=== PATIENT | female | born 1980 | race Caucasian/White ===

== ENCOUNTER 2017-02-27 19:27 | Emergency (ER) | payer OTHER ==
[~2017-02-27] VITALS: Ht 154.9 cm; Wt 111.1 kg
[~2017-02-27 19:27] MED LIST: ALPR0.5T7 PO; ALPR1TAB2 PO; AMOX500C2 PO; AMX500CRX PO; AZIT-21 PO; AZIT250T PO; BENZ-13 PO; BENZ200C25 PO; BSP5T PO; BUTA-234 PO; CEPH500C PO; CITA-105 PO; CITA40TA19 PO; DIPH50CA33 PO; DOXY100C2 PO; DULO60CA58 PO; FRS325T PO; HYDR-3720 PO; HYDR-3812 PO; HYDR25CA92 PO; IBP600T1 PO; IBUP-2055 PO; MELA10CA PO; MELA1TAB11 PO; METH4TAB10 PO; METO-274 PO; Metoprolol Succinate PO; NIFE-12 PO; NPPH15OP OD; NS.65NA45; ONDA8TAB13 PO; ONDA8TAB9 PO; ONDAN4ODT PO; ONDN4T PO; OXYC-12 PO; OXYC1TAB87 PO; PHEN37.555 PO; POLY119P PO; PREN1TAB71 PO; PRM25T PO; PROM25SU10 RC; SERT100T8 PO; SRTR100T PO; TRAM50TA2 PO; ZLP10T PO
[2017-02-27] MEDS ORDERED: FLOVENT (19:58)
[2017-02-27] MEDS ORDERED: ACETAMINOPHEN 500 MG TAB (TYLENOL) PO ONE (20:00)
[2017-02-27] MEDS ORDERED: IBUPROFEN 800 MG (MOTRIN) TAB PO ONE (20:00)
[2017-02-27] MEDS ORDERED: methylPREDNISolone 125 MG (Solu-MEDROL) VIAL IM STA (20:15)
[2017-02-27] MEDS ORDERED: cefTRIAXone 1 GM (ROCEPHIN) VIAL IM ONE (20:15)
[2017-02-27] MEDS ORDERED: LIDOCAINE 1% INJ 20 ML (XYLOCAINE) VIAL INJ ONE (20:15)
[2017-02-27] MEDS ORDERED: guaiFENesin/DM (ROBITUSSIN DM) 10 ML UDC PO PRN (20:15)
[2017-02-27] MEDS ORDERED: BENZ-13 PO (20:20)
[2017-02-27] MEDS ORDERED: METH4TAB PO (20:20)
[2017-02-27] MEDS ORDERED: D-ME118S7 PO (20:20)
[2017-02-27] MEDS ORDERED: CEFD300C3 PO (20:20)
--- NOTE | 2017-02-27 20:20 | ED Cough/URI ---
General Chief Complaint: Cough/Cold/Flu Symptoms Stated Complaint: COUGH FEVER LIGHT HEADED SOA Nursing Triage Note: PT TO ED 10 W/ FAMILY FOR C/O COUGH, CONGESTION ET FEVER ONSET YESTERDAY, WORSE TODAY. Source: patient History of Present Illness Time seen by provider: 20:00 Initial Comments PT C/O NON-PRODUCTIVE COUGH, CHEST CONGESTION, WHEEZING AND SUBJECTIVE FEVER SINCE 1600 YESTERDAY 2 CHILDREN HAD STREP 1-2 WEEKS, AGO AND THEY ARE WELL. PT HAS NOT HAD A SORE THROAT PT USED ALBUTEROL INHALER ( NO SPACER ) X 1 TODAY WITH MINIMAL IMPROVEMENT-- STATES SHE TAKES IT OCCASIONALLY FOR "ALLERGIES"--PT STATES SHE HAS NEVER HAD ANY LUNG PROBLEMS OR BEEN DX WITH ASTHMA PCP: FT. ALEXANDER MAGANA Allergies and Home Medications Allergies Coded Allergies: codeine (Unverified Allergy, Mild, 05/29/11) vomitting Home Medications Alprazolam 1 Mg Tablet, 2 MG PO HS, (Reported) TAKES 2 (1 MG) TABLETS Benzonatate 100 Mg Capsule, 1-2 TAB PO TID, #30 Prescribed by: NAYELI BRIAN on 02/27/172019 Cefdinir 300 Mg Capsule, 300 MG PO BID, #20 Prescribed by: NAYELI BRIAN on 02/27/172019 D-Methorphan Hb/Prometh HCl 118 Ml Syrup, 1-2 TSP PO Q4H, #120 Prescribed by: NAYELI BRIAN on 02/27/172019 Duloxetine HCl 60 Mg Capsule.dr, 60 MG PO HS, (Reported) Methylprednisolone 4 Mg Tab.ds.pk, 4 MG PO UD, #1 Prescribed by: NAYELI BRIAN on 02/27/172019 Metoprolol Succinate 100 Mg Tab.er.24h, 100 MG PO HS, (Reported) [Flovent] , (Reported) Constitutional: see HPI, fever EENTM: nose congestion, see HPI Respiratory: see HPI, cough, dyspnea on exertion, short of breath, wheezing Cardiovascular: no symptoms reported Gastrointestinal: no symptoms reported Genitourinary: no symptoms reported : No Musculoskeletal: no symptoms reported Skin: no symptoms reported Psychiatric/Neurological: No Symptoms Reported Hematologic/Lymphatic: No Symptoms Reported Immunological/Allergic: no symptoms reported Past Cpyqbre-Urfrja-Wwrosd Hx Patient Social History Alcohol Use: Denies Use Recreational Drug Use: No Smoking Status: Never a Smoker Recent Foreign Travel: No Contact w/Someone Who Travel: No Recent Infectious Disease Expo: No Recent Hopitalizations: No Immunizations Up To Date Tetanus Booster (TDap): Less than 5yrs Date of Influenza Vaccine: Aug 05, 2015 Seasonal Allergies Seasonal Allergies: Yes Surgeries HX Surgeries: Yes (RIGHT 5TH FINGER-2 SCREWS;) Surgeries: Adenoidectomy, Section, Gallbladder, Orthopedic, Tonsillectomy, Tubal Ligation Respiratory Hx Respiratory Disorders: No (DENIES ) Cardiovascular Hx Cardiac Disorders: Yes Cardiac Disorders: Hypertension Neurological Hx Neurological Disorders: No Reproductive System Hx Reproductive Disorders: No Sexually Transmitted Disease: No HIV/AIDS: No Female Reproductive Disorders: Denies PVC MONITOR History: Tubal Ligation Genitourinary Hx Genitourinary Disorders: No Gastrointestinal Hx Gastrointestinal Disorders: No Musculoskeletal Hx Musculoskeletal Disorders: Yes Musculoskeletal Disorders: Scoliosis, Fractures Endocrine Hx Endocrine Disorders: No HEENT HX ENT Disorders: No Loss of Vision: Denies Hearing Impairment: Denies Cancer Hx Cancer: No Psychosocial Hx Psychiatric Problems: Yes (INSOMNIA) Behavioral Health Disorders: Sleep Difficulties, Anxiety, Depression Integumentary HX Skin/Integumentary Disorder: No Blood Transfusions Hx Blood Disorders: No Adverse Reaction to a Blood Tr: No Family Medical History Family Medial History: Diabetes mellitus 19 MOTHER Physical Exam Vital Signs Vital Sign - Last 12Hours Capillary Refill : Less Than 3 Seconds General Appearance: WD/WN, no apparent distress, obese HEENT: PERRL/EOMI, TMs normal, pharynx normal, No pharyngeal erythema, other ( NASAL MUCOSAL EDEMA AND CLEAR POST NASAL DRAINAGE. NO SINUS TENDERNESS) Neck: non-tender, full range of motion, supple, normal inspection, No lymphadenopathy (R), No lymphadenopathy (L) Respiratory: normal breath sounds, no respiratory distress, no accessory muscle use Cardiovascular: normal peripheral pulses, regular rate, rhythm, no edema, no JVD, no murmur Gastrointestinal: normal bowel sounds, non tender, soft Extremities: normal inspection, no pedal edema, normal capillary refill Neurologic/Psychiatric: parquetry layer II-XII nml as tested, no motor/sensory deficits, alert, normal mood/affect, oriented x 3 Skin: normal color, warm/dry Progress/Results/Core Measures Results/Orders My Orders Orders - NAYELI BRIAN DO Ibuprofen Tablet (Motrin Tablet) (02/27/17 20:00) Acetaminophen Tablet (Tylenol Tablet) (02/27/17 20:00) Ceftriaxone Injection (Rocephin Injectio (02/27/17 20:15) Methylprednisolone Sod Succ (Solu-Medrol (02/27/17 20:15) Lidocaine 1% Injection (Xylocaine 1% Inj (02/27/17 20:15) Benzonatate Capsule (Tessalon Perles) (02/27/17 21:00) Guaifenesin/Dm Syrup (Robitussin Dm Syru (02/27/17 20:15) Medications Given in ED Current Medications Medications Dose Ordered Sig/Debbie Route Start Time Stop Time Status Last Admin Dose Admin Acetaminophen 1,000 mg ONCE ONCE PO 02/27/17 20:00 02/27/17 20:01 DC 02/27/17 20:04 1,000 MG Ceftriaxone Sodium 1,000 mg ONCE ONCE IM 02/27/17 20:15 02/27/17 20:17 DC 02/27/17 20:33 1,000 MG Guaifenesin/ Dextromethorphan 5 ml Q4H PRN PO 02/27/17 20:15 02/27/17 22:15 DC 02/27/17 20:33 5 ML Ibuprofen 800 mg ONCE ONCE PO 02/27/17 20:00 02/27/17 20:01 DC 02/27/17 20:05 800 MG Lidocaine HCl 2.1 ml ONCE ONCE INJ 02/27/17 20:15 02/27/17 20:17 DC 02/27/17 20:33 2.1 ML Vital Signs/I&O Vital Sign - Last 12Hours 02/27/17 02/27/17 02/27/17 19:48 19:48 21:06 Temp 101.2 101.5 Pulse 101 99 Resp 20 20 B/P (MAP) 160/72 Pulse Ox 95 96 O2 Delivery Room Air Room Air Blood Pressure Mean: 101 Departure Impression Impression: Primary Impression: Bronchitis Disposition: 01 HOME, SELF-CARE Condition: Stable Departure-Patient Inst. Referrals: NO,LOCAL PHYSICIAN (PCP) Primary Care Physician ZULEIKA GRIFFITH MD Patient Instructions: Acute Bronchitis, Adult (DC) Add. Discharge Instructions: USE YOUR INHALER WITH SPACER AT ALL TIMES--2 PUFFS EVERY 4 HOURS NEEDED TYLENOL 1 GRAM / MOTRIN 800 MG 4 TIMES A DAY FOR PAIN OR FEVER OVER 101 LOTS OF CLEAR LIQUIDS FOLLOW UP WITH YOUR DR IN 3 DAYS IF NO BETTER RETURN TO ER IF WORSE All discharge instructions reviewed with patient and/or family. Voiced understanding. Scripts Benzonatate (Tessalon Perle) 100 Mg Capsule 1-2 TAB PO TID for Cough, #30 CAP Prov: NAYELI BRIAN DO 02/27/17 D-Methorphan Hb/Prometh HCl (Promethazine-Dm Syrup) 118 Ml Syrup 1-2 TSP PO Q4H for Cough, #120 ML Prov: NAYELI BRIAN DO 02/27/17 Methylprednisolone (Medrol) 4 Mg Tab.ds.pk 4 MG PO UD, #1 PKG Prov: NAYELI BRIAN DO 02/27/17 Cefdinir (Cefdinir) 300 Mg Capsule 300 MG PO BID for FOR INFECTION, #20 CAP Prov: NAYELI BRIAN DO 02/27/17 NAYELI BRIAN DO February 27, 2017 20:20
[2017-02-27] MEDS ORDERED: BENZONATATE 100 MG (TESSALON) CAPSULE PO SCH (21:00)
[2017-02-27 21:06] VITALS: BP 136/82
== END 2017-02-27 21:06 | disposition home or self-care (01) ==
LOC: EDUNIT# 19:27 → ER 19:30
DX: J40 Bronchitis, not specified as acute or chronic (principal); R50.9 Fever, unspecified; I10 Essential (primary) hypertension; Z79.899 Other long term (current) drug therapy
CPT/HCPCS: 96372; 99282

== ENCOUNTER 2017-03-19 07:18 | Emergency (ER) | payer OTHER ==
[~2017-03-19] VITALS: Ht 154.9 cm; Wt 111.1 kg
[~2017-03-19 07:18] MED LIST changes: +CEFD300C3 PO; +D-ME118S7 PO; +FLOVENT; +METH4TAB PO
[2017-03-19] MEDS ORDERED: ONDANSETRON 4 MG/2 ML (SDV) Z0FRAN IVP ONE ×2 (07:45→09:00)
[2017-03-19] MEDS ORDERED: NS IV 1000 ML 1,000 ML IV SCH ×2 (07:45→09:00)
[2017-03-19 07:53] LABS: BILIRUBIN,URINE NEGATIVE (NEGATIVE); KETONES,URINE NEGATIVE (NEGATIVE); LEUKOCYTE ESTERASE ,URINE NEGATIVE (NEGATIVE); NITRITE,URINE NEGATIVE (NEGATIVE); PH,URINE 8 (5-9); PROTEIN,URINE 1+ (NEGATIVE); UROBILINOGEN,URINE NORMAL (NORMAL)
[2017-03-19 07:54] LABS: BASOPHILS % (AUTO) 0 % (0-10); EOSINOPHILS # (AUTO) 0.1 10^3/uL (0.0-0.3); EOSINOPHILS % (AUTO) 1 % (0-10); LYMPHOCYTES # (AUTO) 1.1 X 10^3 (1.0-4.0); LYMPHOCYTES % (AUTO) 8 % (12-44); MEAN CORPUSCULAR HEMOGLOBIN 28 PG (25-34); MEAN CORPUSCULAR HGB CONC 33 G/DL (32-36); MEAN CORPUSCULAR VOLUME 86 FL (80-99); MEAN PLATELET VOLUME 9.4 FL (7.4-10.4); MONOCYTES # (AUTO) 0.8 X 10^3 (0.0-1.0); MONOCYTES % (AUTO) 6 % (0-12); NEUTROPHILS # (AUTO) 11.4 X 10^3 (1.8-7.8); NEUTROPHILS % (AUTO) 85 % (42-75); PLATELET COUNT 344 10^3/uL (130-400); RED BLOOD COUNT 4.95 10^6/uL (4.35-5.85); RED CELL DISTRIBUTION WIDTH 14.3 % (10.0-14.5); WHITE BLOOD COUNT 13.4 10^3/uL (4.3-11.0)
[2017-03-19 08:13] LABS: ALANINE AMINOTRANSFERASE 32 U/L (0-55); ALBUMIN 3.9 G/DL (3.2-4.5); ANION GAP 10 MMOL/L (5-14); ASPARTATE AMINO TRANSFERASE 19 U/L (5-34); BILIRUBIN,TOTAL 0.5 MG/DL (0.1-1.0); BLOOD UREA NITROGEN 11 MG/DL (7-18); BUN/CREATININE RATIO 15; CALCIUM 8.6 MG/DL (8.5-10.1); CARBON DIOXIDE 23 MMOL/L (21-32); CHLORIDE 109 MMOL/L (98-107); CREATININE SERUM 0.71 MG/DL (0.60-1.30); GFR ESTIMATED > 60; GLUCOSE 112 MG/DL (70-105); POTASSIUM 3.6 MMOL/L (3.6-5.0); SODIUM 142 MMOL/L (135-145); TOTAL PROTEIN 6.9 G/DL (6.4-8.2)
--- NOTE | 2017-03-19 08:50 | ED GI ---
General Chief Complaint: Abdominal/GI Problems Stated Complaint: FOOD POISINING Nursing Triage Note: AMB TO ROOM REPORT ONSET OF VOMITING THIS AM CONCERN THAT SHE MAY HAVE FOOD POISONING ATE GERARD LAST NIGHT AT [employer] WITH [employer] Sepsis Screen: No Definite Risk Source of Information: Patient Exam Limitations: No Limitations History of Present Illness Time Seen By Provider: 08:42 Initial Comments The patient is a 36-year-old white female who presents to the ER this morning with complaints of diarrhea and vomiting. She states that she ate at a [place] restaurant last night at about 2030 hours. She awakened during the night with abdominal cramping and vomiting and diarrhea. This is continued on broken since that time. Her stated food was not anything that would immediately take you to the thought of food poisoning. Timing/Duration: 12 Hours Severity/Quality: Moderate Location: Generalized Abdomen Radiation: No Radiation Activities at Onset: None Associated Symptoms: Nausea/Vomiting Allergies and Home Medications Allergies Coded Allergies: codeine (Unverified Allergy, Mild, 05/29/11) vomitting Home Medications Alprazolam 1 Mg Tablet, 2 MG PO HS, (Reported) TAKES 2 (1 MG) TABLETS Benzonatate 100 Mg Capsule, 1-2 TAB PO TID, #30 Prescribed by: NAYELI BRIAN on 02/27/172019 D-Methorphan Hb/Prometh HCl 118 Ml Syrup, 1-2 TSP PO Q4H, #120 Prescribed by: NAYELI BRIAN on 02/27/172019 Duloxetine HCl 60 Mg Capsule.dr, 60 MG PO HS, (Reported) Methylprednisolone 4 Mg Tab.ds.pk, 4 MG PO UD, #1 Prescribed by: NAYELI BRIAN on 02/27/172019 Metoprolol Succinate 100 Mg Tab.er.24h, 100 MG PO HS, (Reported) [Flovent] , (Reported) Review of Systems Constitutional: see HPI EENTM: No Symptoms Reported Respiratory: No Symptoms Reported Cardiovascular: No Symptoms Reported Gastrointestinal: See HPI Genitourinary: No Symptoms Reported Musculoskeletal: no symptoms reported Skin: no symptoms reported Psychiatric/Neurological: No Symptoms Reported Endocrine: No Symptoms Reported Hematologic/Lymphatic: No Symptoms Reported Past Hoappga-Eoqmfv-Wqtzyo Hx Patient Social History Alcohol Use: Denies Use Recreational Drug Use: No Smoking Status: Never a Smoker Recent Foreign Travel: No Contact w/Someone Who Travel: No Recent Infectious Disease Expo: No Recent Hopitalizations: No Immunizations Up To Date Tetanus Booster (TDap): Less than 5yrs Date of Influenza Vaccine: Aug 05, 2015 Seasonal Allergies Seasonal Allergies: Yes Surgeries HX Surgeries: Yes (RIGHT 5TH FINGER-2 SCREWS;) Surgeries: Adenoidectomy, Section, Gallbladder, Orthopedic, Tonsillectomy, Tubal Ligation Respiratory Hx Respiratory Disorders: No (DENIES ) Cardiovascular Hx Cardiac Disorders: Yes Cardiac Disorders: Hypertension Neurological Hx Neurological Disorders: No Reproductive System Hx Reproductive Disorders: No Sexually Transmitted Disease: No HIV/AIDS: No Female Reproductive Disorders: Denies HEALTH ANALYST History: Tubal Ligation Genitourinary Hx Genitourinary Disorders: No Gastrointestinal Hx Gastrointestinal Disorders: No Musculoskeletal Hx Musculoskeletal Disorders: Yes Musculoskeletal Disorders: Scoliosis, Fractures Endocrine Hx Endocrine Disorders: No HEENT HX ENT Disorders: No Loss of Vision: Denies Hearing Impairment: Denies Cancer Hx Cancer: No Psychosocial Hx Psychiatric Problems: Yes (INSOMNIA) Behavioral Health Disorders: Sleep Difficulties, Anxiety, Depression Integumentary HX Skin/Integumentary Disorder: No Blood Transfusions Hx Blood Disorders: No Adverse Reaction to a Blood Tr: No Family Medical History Family Medial History: Diabetes mellitus 19 MOTHER Physical Exam Vital Signs VS - Last 72 Hours, by Label 03/19/17 07:22 Temp 98.5 Pulse 100 Resp 18 B/P (MAP) 141/96 Capillary Refill : Less Than 3 Seconds General Appearance: mild distress, moderate distress HEENT: normal ENT inspection Neck: full range of motion Respiratory: chest non-tender, lungs clear, normal breath sounds, no respiratory distress, no accessory muscle use Cardiovascular: normal peripheral pulses, regular rate, rhythm, no edema, no gallop, no JVD, no murmur Gastrointestinal: abnormal bowel sounds Extremities: normal range of motion, non-tender, normal inspection, no pedal edema, no calf tenderness, normal capillary refill, pelvis stable Neurologic/Psychiatric: credit risk specialist II-XII nml as tested, no motor/sensory deficits, alert, normal mood/affect, oriented x 3 Skin: normal color, warm/dry Progress/Results/Core Measures Results/Orders Lab Results Laboratory Tests Test 03/19/17 07:40 Range/Units White Blood Count 13.4 H 4.3-11.0 10^3/uL Red Blood Count 4.95 4.35-5.85 10^6/uL Hemoglobin 14.0 11.5-16.0 G/DL Hematocrit 43 35-52 % Mean Corpuscular Volume 86 80-99 FL Mean Corpuscular Hemoglobin 28 25-34 PG Mean Corpuscular Hemoglobin Concent 33 32-36 G/DL Red Cell Distribution Width 14.3 10.0-14.5 % Platelet Count 344 130-400 10^3/uL Mean Platelet Volume 9.4 7.4-10.4 FL Neutrophils (%) (Auto) 85 H 42-75 % Lymphocytes (%) (Auto) 8 L 12-44 % Monocytes (%) (Auto) 6 0-12 % Eosinophils (%) (Auto) 1 0-10 % Basophils (%) (Auto) 0 0-10 % Neutrophils # (Auto) 11.4 H 1.8-7.8 X 10^3 Lymphocytes # (Auto) 1.1 1.0-4.0 X 10^3 Monocytes # (Auto) 0.8 0.0-1.0 X 10^3 Eosinophils # (Auto) 0.1 0.0-0.3 10^3/uL Basophils # (Auto) 0.0 0.0-0.1 10^3/uL Urine Color YELLOW Urine Clarity CLEAR Urine pH 8 5-9 Urine Specific [place] 1.010 L 1.016-1.022 Urine Protein 1+ H NEGATIVE Urine Glucose (UA) NEGATIVE NEGATIVE Urine Ketones NEGATIVE NEGATIVE Urine Nitrite NEGATIVE NEGATIVE Urine Bilirubin NEGATIVE NEGATIVE Urine Urobilinogen NORMAL NORMAL MG/DL Urine Leukocyte Esterase NEGATIVE NEGATIVE Urine RBC (Auto) NEGATIVE NEGATIVE Urine RBC NONE /HPF Urine WBC NONE /HPF Urine Squamous Epithelial Cells 10-25 H /HPF Urine Crystals NONE /LPF Urine Bacteria NEGATIVE /HPF Urine Casts NONE /LPF Urine Mucus NEGATIVE /LPF Urine Culture Indicated NO Sodium Level 142 135-145 MMOL/L Potassium Level 3.6 3.6-5.0 MMOL/L Chloride Level 109 H 98-107 MMOL/L Carbon Dioxide Level 23 21-32 MMOL/L Anion Gap 10 5-14 MMOL/L Blood Urea Nitrogen 11 7-18 MG/DL Creatinine 0.71 0.60-1.30 MG/DL Estimat Glomerular Filtration Rate > 60 BUN/Creatinine Ratio 15 Glucose Level 112 H 70-105 MG/DL Calcium Level 8.6 8.5-10.1 MG/DL Total Bilirubin 0.5 0.1-1.0 MG/DL Aspartate Amino Transf (AST/SGOT) 19 5-34 U/L Alanine Aminotransferase (ALT/SGPT) 32 0-55 U/L Alkaline Phosphatase 86 40-136 U/L Total Protein 6.9 6.4-8.2 G/DL Albumin 3.9 3.2-4.5 G/DL My Orders Orders - GENA CHAPPELL MD Cbc With Automated Diff (03/19/17 07:35) Comprehensive Metabolic Panel (03/19/17 07:35) Ua Culture If Indicated (03/19/17 07:35) Ns Iv 1000 Ml (Sodium Chloride 0.9%) (03/19/17 07:45) Ondansetron Injection (Zofran Injectio (03/19/17 07:45) Ns Iv 1000 Ml (Sodium Chloride 0.9%) (03/19/17 09:00) Ondansetron Injection (Zofran Injectio (03/19/17 09:00) Medications Given in ED Current Medications Medications Dose Ordered Sig/Debbie Route Start Time Stop Time Status Last Admin Dose Admin Ondansetron HCl 4 mg ONCE ONCE IVP 03/19/17 07:45 03/19/17 07:46 DC 03/19/17 07:48 4 MG Ondansetron HCl 4 mg ONCE ONCE IVP 03/19/17 09:00 03/19/17 09:01 DC 03/19/17 08:57 4 MG Vital Signs/I&O Vital Sign - Last 12Hours 03/19/17 07:22 Temp 98.5 Pulse 100 Resp 18 B/P (MAP) 141/96 Blood Pressure Mean: 111 Departure Impression Impression: Primary Impression: gastroenteritis Disposition: 01 HOME, SELF-CARE Condition: Improved Departure-Patient Inst. Decision time for Depature: 09:26 Referrals: NO,LOCAL PHYSICIAN (PCP) Primary Care Physician Patient Instructions: No Instuctions Given Add. Discharge Instructions: All discharge instructions reviewed with patient and/or family. Voiced understanding. For the next 24 hours do not attempt to eat. Acquire 7-Up and Gatorade. Alternate these and take them and 1-2 ounce increments but frequently. If you are doing well he should have to urinate at least every 4 hours. Use Zofran to control nausea. If after both to 24 hours there are no further symptoms you are then able to reintroduce food. Began with a few soda crackers and then advanced to chicken noodle or chicken rice soup in small amounts. At that time you may also use dry toast and mashed potatoes or steamed rice. The potatoes or rice may only have a bit of broth on them for flavoring. If this goes well you may advance to small portions of broiled chicken. At that point you should be ready to return to usual diet Scripts Ondansetron (Zofran Odt) 8 Mg Tab.rapdis 8 MG PO EVERY 4 HOURS, #10 TAB Prov: GENA CHAPPELL MD 03/19/17 GENA CHAPPELL MD Mar 19, 2017 08:50
[2017-03-19] MEDS ORDERED: ONDA8TAB9 PO (09:30)
[2017-03-19 10:13] VITALS: BP 152/78
== END 2017-03-19 10:16 | disposition home or self-care (01) ==
LOC: EDUNIT# 07:18 → ER 07:19
DX: K52.9 Noninfective gastroenteritis and colitis, unspecified (principal); I10 Essential (primary) hypertension
CPT/HCPCS: 36415; 80053; 81000; 85025; 96361; 96374; 96376

== ENCOUNTER 2017-10-19 15:36 | Emergency (ER) | payer OTHER ==
[~2017-10-19] VITALS: Ht 154.9 cm; Wt 116.1 kg
[~2017-10-19 15:36] MED LIST changes: +ACHD5005 PO; -HYDR-3812 PO; -METO-274 PO; +METO-395 PO
--- OUTSIDE RECORDS SUMMARY | 2017-10-19 15:43 | XMS REPORT ---
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 Active 3320511633566 Problem Elevated blood pressure reading without diagnosis of hypertension 796.2 Active 349829871 Problem Supervision of other normal V22.1 Active 900459303 Problem Seasonal allergic rhinitis due to other allergic trigger J30.89 Active 315698205 Problem Major depressive disorder, recurrent, moderate F33.1 Active 40650379 Problem Unspecified and placental problem affecting management of mother , unspecified as to episode of care 656.90 Active 36561494 Problem Nausea with vomiting 787.01 Active 93743333 Problem Generalized anxiety disorder F41.1 Active 83300138 Problem Previous delivery, unspecified as to episode of care or not applicable 654.20 Active 189221112 Problem Screening for malignant neoplasm of the cervix V76.2 Active 855522194 Problem Other procreative management, counseling and advice V26.49 Active 28014658 Problem Unspecified high-risk V23.9 Active 34886445 Problem Encounter for removal of intrauterine contraceptive device V25.12 Active 43963003 Problem Need for prophylactic vaccination and inoculation, Influenza V04.81 Active 725427624 ALLERGIES Substance Reaction Event Type Date Status Codeine Unknown Drug Allergy February, Active SOCIAL HISTORY Never Assessed PLAN OF CARE Activity Details Follow Up prn Reason: VITAL SIGNS Height 61 in 2017-02-14 Weight 263.6 lbs 2017-02-14 Temperature 98.4 degrees Fahrenheit 2017-02-14 Heart Rate 76 bpm 2017-02-14 Respiratory Rate 20 2017-02-14 BMI 49.80 kg/m2 2017-02-14 Blood pressure systolic 126 mmHg 2017-02-14 Blood pressure diastolic 76 mmHg 2017-02-14 MEDICATIONS Medication Instructions Dosage Frequency Start Date End Date Duration Status Xanax 1 MG Orally PRN HS 1 tablet Active Duloxetine HCl 60 MG Orally Once a day 1 capsule 24h Active Nasonex 50 MCG/ACT Nasally Once a day 2 sprays in each nostril 24h Sep, 30 day(s) Active Acyclovir 800 MG Orally Five times a day 1 tablet February, 7 days Active Metoprolol Tartrate 100 mg Orally Once a day 1 tablet 24h Active ProAir HFA 108 (90 Base) MCG/ACT Inhalation every 4-6 hours as needed 2 puffs as needed Active Phentermine HCl 37.5 MG Active RESULTS No Results PROCEDURES No Known procedures IMMUNIZATIONS No Known Immunizations MEDICAL (GENERAL) HISTORY Type Description Date Medical History hypertension Medical History anxiety Medical History Shingles Surgical History section Surgical History tubal ligation Surgical History cholecystectomy Surgical History tonsilectomy Surgical History pinkie surgery Hospitalization History chest pain 2013 Hospitalization History Surgery(s)/Childbirth(s) Hospitalization History dehydration 2009 Hospitalization History pneumonia Hospitalization History Shingles February 2017
--- OUTSIDE RECORDS SUMMARY | 2017-10-19 15:43 | XMS REPORT ---
Author Author NAYELI IBARRA Organization 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 Active 0000971860125 Problem Elevated blood pressure reading without diagnosis of hypertension 796.2 Active 518533604 Problem Supervision of other normal V22.1 Active 775771638 Problem Seasonal allergic rhinitis due to other allergic trigger J30.89 Active 382022517 Problem Major depressive disorder, recurrent, moderate F33.1 Active 89777349 Problem Unspecified and placental problem affecting management of mother , unspecified as to episode of care 656.90 Active 86391168 Problem Nausea with vomiting 787.01 Active 77222723 Problem Generalized anxiety disorder F41.1 Active 70798015 Problem Previous delivery, unspecified as to episode of care or not applicable 654.20 Active 180458766 Problem Screening for malignant neoplasm of the cervix V76.2 Active 815469665 Problem Other procreative management, counseling and advice V26.49 Active 57114781 Problem Unspecified high-risk V23.9 Active 70878620 Problem Encounter for removal of intrauterine contraceptive device V25.12 Active 36835098 Problem Need for prophylactic vaccination and inoculation, Influenza V04.81 Active 317705047 ALLERGIES Substance Reaction Event Type Date Status Codeine Unknown Drug Allergy February, Active SOCIAL HISTORY Never Assessed PLAN OF CARE Activity Details Follow Up prn Reason:DIANA VITAL SIGNS Height 61 in 2017-03-07 Heart Rate 86 bpm 2017-03-07 Blood pressure systolic 134 mmHg 2017-03-07 Blood pressure diastolic 84 mmHg 2017-03-07 MEDICATIONS Medication Instructions Dosage Frequency Start Date End Date Duration Status Xanax 1 MG Orally PRN HS 1 tablet Active Duloxetine HCl 60 MG Orally Once a day 1 capsule 24h Active Phentermine HCl 37.5 MG Active ProAir HFA 108 (90 Base) MCG/ACT Inhalation every 4-6 hours as needed 2 puffs as needed Active Acyclovir 800 MG Orally Five times a day 1 tablet February, 7 days Active Metoprolol Tartrate 100 mg Orally Once a day 1 tablet 24h Active Nasonex 50 MCG/ACT Nasally Once a day 2 sprays in each nostril 24h Sep, 30 day(s) Active RESULTS No Results PROCEDURES Procedure Date Ordered Result Body Site INTRAORL-PERIAPICAL 1 FILM [id number] March 07, 2017 INTRAORL-PERIAPICAL EA ADD FILM March 07, 2017 Full mouth debridement March 07, 2017 INTRAORL-PERIAPICAL EA ADD FILM March 07, 2017 INTRAORL-PERIAPICAL EA ADD FILM March 07, 2017 PANORAMIC FILM SEE ALSO CODE [id number] March 07, 2017 BITEWINGS - FOUR FILMS March 07, 2017 IMMUNIZATIONS No Known Immunizations MEDICAL (GENERAL) HISTORY Type Description Date Medical History hypertension Medical History anxiety Medical History Shingles Surgical History section Surgical History tubal ligation Surgical History cholecystectomy Surgical History tonsilectomy Surgical History pinkie surgery Hospitalization History chest pain 2013 Hospitalization History Surgery(s)/Childbirth(s) Hospitalization History dehydration 2009 Hospitalization History pneumonia Hospitalization History Shingles February 2017
--- OUTSIDE RECORDS SUMMARY | 2017-10-19 15:44 | XMS REPORT ---
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 Active 1185140532416 Problem Elevated blood pressure reading without diagnosis of hypertension 796.2 Active 272836793 Problem Supervision of other normal V22.1 Active 234258263 Problem Seasonal allergic rhinitis due to other allergic trigger J30.89 Active 005142034 Problem Major depressive disorder, recurrent, moderate F33.1 Active 02685633 Problem Unspecified and placental problem affecting management of mother , unspecified as to episode of care 656.90 Active 06014422 Problem Nausea with vomiting 787.01 Active 00309534 Problem Generalized anxiety disorder F41.1 Active 98973902 Problem Previous delivery, unspecified as to episode of care or not applicable 654.20 Active 173988014 Problem Screening for malignant neoplasm of the cervix V76.2 Active 098172549 Problem Other procreative management, counseling and advice V26.49 Active 88065788 Problem Unspecified high-risk V23.9 Active 89637698 Problem Encounter for removal of intrauterine contraceptive device V25.12 Active 12509768 Problem Need for prophylactic vaccination and inoculation, Influenza V04.81 Active 827172373 ALLERGIES Substance Reaction Event Type Date Status Codeine Unknown Drug Allergy Nov, Active SOCIAL HISTORY No smoking Hx information available PLAN OF CARE VITAL SIGNS Height 61 in 2016-11-23 Weight 258.0 lbs 2016-11-23 Temperature 98.0 degrees Fahrenheit 2016-11-23 Heart Rate 88 bpm 2016-11-23 Respiratory Rate 18 2016-11-23 BMI 48.74 kg/m2 2016-11-23 Blood pressure systolic 134 mmHg 2016-11-23 Blood pressure diastolic 88 mmHg 2016-11-23 MEDICATIONS Medication Instructions Dosage Frequency Start Date End Date Duration Status Nasonex 50 MCG/ACT Nasally Once a day 2 sprays in each nostril 24h Sep, 30 day(s) Active Xanax 1 MG Orally PRN HS 1 tablet Active Duloxetine HCl 60 MG Orally Once a day 1 capsule 24h Active ProAir HFA 108 (90 Base) MCG/ACT Inhalation every 4-6 hours as needed 2 puffs as needed Active RESULTS No Results PROCEDURES Procedure Date Ordered Related Diagnosis Body Site TDAP (BOOSTRIX) Nov 23, 2016 SINGLE IMMUNIZATION ADMIN Nov 23, 2016 IMMUNIZATIONS Vaccine Route Administration Date Status TDAP (BOOSTRIX) IM Intramuscular Nov 23, 2016 Administered
--- OUTSIDE RECORDS SUMMARY | 2017-10-19 15:44 | XMS REPORT ---
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 Active 8257122234551 Problem Elevated blood pressure reading without diagnosis of hypertension 796.2 Active 786014740 Problem Supervision of other normal V22.1 Active 807441487 Problem Seasonal allergic rhinitis due to other allergic trigger J30.89 Active 549142264 Problem Major depressive disorder, recurrent, moderate F33.1 Active 30181537 Problem Unspecified and placental problem affecting management of mother , unspecified as to episode of care 656.90 Active 56491410 Problem Nausea with vomiting 787.01 Active 41376077 Problem Generalized anxiety disorder F41.1 Active 50937408 Problem Previous delivery, unspecified as to episode of care or not applicable 654.20 Active 803321792 Problem Screening for malignant neoplasm of the cervix V76.2 Active 837962652 Problem Other procreative management, counseling and advice V26.49 Active 85507883 Problem Unspecified high-risk V23.9 Active 34902754 Problem Encounter for removal of intrauterine contraceptive device V25.12 Active 05364294 Problem Need for prophylactic vaccination and inoculation, Influenza V04.81 Active 416998374 ALLERGIES Substance Reaction Event Type Date Status Codeine Unknown Drug Allergy February, Active SOCIAL HISTORY Never Assessed PLAN OF CARE Activity Details Follow Up prn Reason: VITAL SIGNS Height 61 in 2017-02-16 Weight 263.0 lbs 2017-02-16 Temperature 97.0 degrees Fahrenheit 2017-02-16 Heart Rate 68 bpm 2017-02-16 Respiratory Rate 20 2017-02-16 BMI 49.69 kg/m2 2017-02-16 Blood pressure systolic 120 mmHg 2017-02-16 Blood pressure diastolic 74 mmHg 2017-02-16 MEDICATIONS Medication Instructions Dosage Frequency Start Date End Date Duration Status Acyclovir 800 MG Orally Five times a day 1 tablet February, 7 days Active Metoprolol Tartrate 100 mg Orally Once a day 1 tablet 24h Active ProAir HFA 108 (90 Base) MCG/ACT Inhalation every 4-6 hours as needed 2 puffs as needed Active Duloxetine HCl 60 MG Orally Once a day 1 capsule 24h Active Xanax 1 MG Orally PRN HS 1 tablet Active Phentermine HCl 37.5 MG Active Nasonex 50 MCG/ACT Nasally Once a day 2 sprays in each nostril 24h Sep, 30 day(s) Active RESULTS No Results PROCEDURES No Known [...]
--- OUTSIDE RECORDS SUMMARY | 2017-10-19 15:45 | XMS REPORT | Continuity of Care Document ---
Author Author [facility] Address Unknown Phone Unavailable Allergies Active Description Code Type Severity Reaction Onset Reported/Identified Relationship to Patient Clinical Status Yes codeine [id number] Drug Allergy Mild N/A 05/29/2011 Yes Codeine Drug Allergy 02/15/2012 Yes Codeine Drug Allergy N/A N/A 02/15/2012 Medications There is no data. Problems Date Dx Coded Attending Type Code Diagnosis Diagnosed By 05/29/2011 Ot 276.50 05/29/2011 Ot 465.9 05/29/2011 Ot 599.0 05/29/2011 Ot 787.03 02/15/2012 KRISTINA QUILES PSYD V25.12 Iud Removal 02/15/2012 KRISTINA QUILES PSYD V26.49 Other Procreative Management Counseling And Advice 02/15/2012 V25.12 Iud Removal 02/15/2012 V26.49 Other Procreative Management Counseling And Advice 02/15/2012 KRISTINA QUILES PSYD V25.12 Iud Removal 02/15/2012 KRISTINA QUILES PSYD V26.49 Other Procreative Management Counseling And Advice 02/15/2012 V25.12 Iud Removal 02/15/2012 V26.49 Other Procreative Management Counseling And Advice 02/15/2012 KRISTINA QUILES PSYD V25.12 Iud Removal 02/15/2012 KRISTINA QUILES PSYD V26.49 Other Procreative Management Counseling And Advice 02/15/2012 STACIE AMADOR DO V25.12 Iud Removal 02/15/2012 STACIE AMADOR DO V26.49 Other Procreative Management Counseling And Advice 02/15/2012 KRISTINA QUILES PSYD V25.12 Iud Removal 02/15/2012 KRISTINA QUILES PSYD V26.49 Other Procreative Management Counseling And Advice 03/21/2012 KRISTINA QUILES PSYD 654.20 PREVIOUS 03/21/2012 KRISTINA QUILES PSYD V22.1 , Normal Other 03/21/2012 654.20 PREVIOUS C- SECTION 03/21/2012 V22.1 , Normal Other 03/21/2012 KRISTINA QUILES PSYD 654.20 PREVIOUS 03/21/2012 KRISTINA QUILES PSYD L V22.1 , Normal Other 03/21/2012 654.20 PREVIOUS C- SECTION 03/21/2012 V22.1 , Normal Other 03/21/2012 KRISTINA QUILES PSYD L 654.20 PREVIOUS 03/21/2012 KRISTINA QUILES PSYD V22.1 , Normal Other 03/21/2012 STACIE AMADOR DO 654.20 PREVIOUS 03/21/2012 STACIE AMADOR DO V22.1 , Normal Other 03/21/2012 KRISTINA QUILES PSYD 654.20 PREVIOUS 03/21/2012 KRISTINA QUILES PSYD V22.1 , Normal Other 04/04/2012 KRISTINA QUILES PSYD 787.01 Nausea With Vomiting 04/04/2012 KRISTINA QUILES PSYD V76.2 Cervical Cancer Screening (pap Smear) 04/04/2012 787.01 Nausea With Vomiting 04/04/2012 V76.2 Cervical Cancer Screening (pap Smear) 04/04/2012 KRISTINA QUILES PSYD 787.01 Nausea With Vomiting 04/04/2012 KRISTINA QUILES PSYD V76.2 Cervical Cancer Screening (pap Smear) 04/04/2012 787.01 Nausea With Vomiting 04/04/2012 V76.2 Cervical Cancer Screening (pap Smear) 04/04/2012 KRISTINA QUILES PSYD 787.01 Nausea With Vomiting 04/04/2012 KRISTINA QUILES PSYD V76.2 Cervical Cancer Screening (pap Smear) 04/04/2012 STACIE AMADOR DO 787.01 Nausea With Vomiting 04/04/2012 STACIE AMADOR DO V76.2 Cervical Cancer Screening (pap Smear) 04/04/2012 KRISTINA QUILES PSYD 787.01 Nausea With Vomiting 04/04/2012 KRISTINA QUILES PSYD V76.2 Cervical Cancer Screening (pap Smear) 05/10/2012 KRISTINA QUILES PSYD L 300.00 ANXIETY UNSPEC 05/10/2012 300.00 ANXIETY UNSPEC 05/10/2012 KRISTINA QUILES PSYD L 300.00 ANXIETY UNSPEC 05/10/2012 300.00 ANXIETY UNSPEC 05/10/2012 KRISTINA QUILES PSYD L 300.00 ANXIETY UNSPEC 05/10/2012 STACIE AMADOR DO 300.00 ANXIETY UNSPEC 05/10/2012 KRISTINA QUILES PSYD 300.00 ANXIETY UNSPEC 05/12/2012 KRISTINA QUILES PSYD L 311 MO DEPRESS NOS 05/12/2012 311 MO DEPRESS NOS 05/12/2012 KRISTINA QUILES PSYD L 311 MO DEPRESS NOS 05/12/2012 311 MO DEPRESS NOS 05/12/2012 KRISTINA QUILES PSYD L 311 MO DEPRESS NOS 05/12/2012 STACIE AMADOR DO 311 MO DEPRESS NOS 05/12/2012 KRISTINA QUILES PSYD L 311 MO DEPRESS NOS 06/08/2012 KRISTINA QUILES PSYD 796.2 ELEVATED BLOOD PRESSURE READING WITHOUT DIAGNOSIS OF HYPERTENSION 06/08/2012 796.2 ELEVATED BLOOD PRESSURE READING WITHOUT DIAGNOSIS OF HYPERTENSION 06/08/2012 KRISTINA QUILES PSYD 796.2 ELEVATED BLOOD PRESSURE READING WITHOUT DIAGNOSIS OF HYPERTENSION 06/08/2012 796.2 ELEVATED BLOOD PRESSURE READING WITHOUT DIAGNOSIS OF HYPERTENSION 06/08/2012 KRISTINA QUILES PSYD 796.2 ELEVATED BLOOD PRESSURE READING WITHOUT DIAGNOSIS OF HYPERTENSION 06/08/2012 STACIE AMADOR DO 796.2 ELEVATED BLOOD PRESSURE READING WITHOUT DIAGNOSIS OF HYPERTENSION 06/08/2012 KRISTINA QUILES PSYD 796.2 ELEVATED BLOOD PRESSURE READING WITHOUT DIAGNOSIS OF HYPERTENSION 06/22/2012 Ot 461.9 06/22/2012 Ot 786.2 07/31/2012 KRISTINA QUILES PSYD 656.90 LOW LYING PLACENTA 07/31/2012 KRISTINA QUILES PSYD V02.51 GBS - CARRIER OR SUSPECTED CARRIER 07/31/2012 KRISTINA QUILES PSYD V04.81 FLU DX (3 YRS AND ABOVE, IM) 07/31/2012 KRISTINA QUILES PSYD V23.9 , HIGH-RISK (UNSPEC) 07/31/2012 656.90 LOW LYING PLACENTA 07/31/2012 V02.51 GBS - CARRIER OR SUSPECTED CARRIER 07/31/2012 V04.81 FLU DX (3 YRS AND ABOVE, IM) 07/31/2012 V23.9 , HIGH-RISK (UNSPEC) 07/31/2012 KRISTINA QUILES PSYD L 656.90 LOW LYING PLACENTA 07/31/2012 KRISTINA QUILES PSYD V02.51 GBS - CARRIER OR SUSPECTED CARRIER 07/31/2012 KRISTINA QUILES PSYD V04.81 FLU DX (3 YRS AND ABOVE, IM) 07/31/2012 KRISTINA QUILES PSYD V23.9 , HIGH-RISK (UNSPEC) 07/31/2012 656.90 LOW LYING PLACENTA 07/31/2012 V02.51 GBS - CARRIER OR SUSPECTED CARRIER 07/31/2012 V04.81 FLU DX (3 YRS AND ABOVE, IM) 07/31/2012 V23.9 , HIGH-RISK (UNSPEC) 07/31/2012 KRISTINA QUILES PSYD 656.90 LOW LYING PLACENTA 07/31/2012 KRISTINA QUILES PSYD V02.51 GBS - CARRIER OR SUSPECTED CARRIER 07/31/2012 KRISTINA QUILES PSYD V04.81 FLU DX (3 YRS AND ABOVE, IM) 07/31/2012 KRISTINA QUILES PSYD V23.9 , HIGH-RISK (UNSPEC) 07/31/2012 AMADOR DO STACIE K 656.90 LOW LYING PLACENTA 07/31/2012 AMADOR DO STACIE K V02.51 GBS - CARRIER OR SUSPECTED CARRIER 07/31/2012 AMADOR DO STACIE K V04.81 FLU DX (3 YRS AND ABOVE, IM) 07/31/2012 AMADOR DO STACIE K V23.9 , HIGH-RISK (UNSPEC) 07/31/2012 KRISTINA QUILES PSYD L 656.90 LOW LYING PLACENTA 07/31/2012 KRISTINA QUILES PSYD V02.51 GBS - CARRIER OR SUSPECTED CARRIER 07/31/2012 KRISTINA QUILES PSYD V04.81 FLU DX (3 YRS AND ABOVE, IM) 07/31/2012 KRISTINA QUILES PSYD L V23.9 , HIGH-RISK (UNSPEC) 08/31/2012 Ot 644.03 09/30/2012 Ot 648.73 09/30/2012 Ot 724.5 10/16/2012 Ot 276.51 10/16/2012 Ot 644.03 10/16/2012 Ot 648.93 10/24/2012 Ot 642.93 10/24/2012 Ot 644.03 10/24/2012 Ot 654.23 10/27/2012 Ot 300.00 10/27/2012 Ot 642.93 10/27/2012 Ot 644.03 10/27/2012 Ot 648.43 10/27/2012 Ot 654.23 11/03/2012 Ot 285.1 11/03/2012 Ot 285.9 11/03/2012 Ot 642.71 11/03/2012 Ot 644.21 11/03/2012 Ot 648.21 11/03/2012 Ot 648.22 11/03/2012 Ot 648.91 11/03/2012 Ot 654.21 11/03/2012 Ot V02.51 11/03/2012 Ot V27.0 11/27/2012 Ot 788.20 01/03/2013 Ot 276.8 01/03/2013 Ot 558.9 01/03/2013 Ot 796.2 01/03/2013 Ot V45.89 08/02/2013 KRISTINA QUILES PSYD L 296.32 MO DEPRESSIVE RECURRENT MODERATE 08/02/2013 STACIE AMADOR DO 296.32 MO DEPRESSIVE RECURRENT MODERATE 03/07/2014 MANUEL MCKEON MD Ot 789.06 03/28/2014 SHAWNA ERAZO, MAYA Ot 574.10 04/11/2014 AMY CROWELL Ot 787.02 04/11/2014 AMY CROWELL Ot 789.01 04/12/2014 MICHAEL MCKEON MDOTHY D Ot 338.18 04/12/2014 MIKE ERAZO, MANUEL D Ot 789.00 05/09/2014 GAY ERAZO, CHRISTOPHER T Ot 372.30 05/09/2014 GAY ERAZO, CHRISTOPHER T Ot 930.9 07/15/2014 GAY ERAZO, CHRISTOPHER T Ot 465.9 07/15/2014 GAY ERAZO, CHRISTOPHER T Ot 786.2 11/14/2014 Ot 649.63 11/14/2014 Ot 641.13 11/14/2014 Ot 285.9 11/14/2014 Ot 642.43 11/14/2014 Ot 648.23 11/14/2014 Ot 654.23 11/14/2014 Ot V72.63 11/14/2014 Ot V74.8 11/14/2014 SHAWNA ERAZO, MAYA Ot 574.20 11/14/2014 SHAWNA ERAZO, MAYA Ot V72.83 11/14/2014 SHAWNA ERAZO, MAYA Ot V74.8 01/28/2015 YUN ERAZO FACC, ALI FACP CCDS Ot 278.00 01/28/2015 YUN ERAZO FACC, ALI FACP CCDS Ot 300.00 01/28/2015 YUN ERAZO FACC, ALI FACP CCDS Ot 311 01/28/2015 YUN ERAZO FACC, ALI FACP CCDS Ot 401.9 01/28/2015 YUN ERAZO FACC, ALI FACP CCDS Ot 427.89 01/28/2015 YUN ERAZO FACC, ALI FACP CCDS Ot 695.3 01/28/2015 YUN ERAZO FACC, ALI FACP CCDS Ot 786.59 01/28/2015 YUN ERAZO FACC, ALI FACP CCDS Ot V17.3 01/28/2015 YUN ERAZO FACC, ALI FACP CCDS Ot V85.39 07/27/2015 Ot J18.9 07/27/2015 Ot R05 10/07/2015 FARZANA ABAD MD Ot E86.0 10/07/2015 FARZANA ABAD MD Ot K52.9 11/08/2015 CAROLINA CARRASCO DO Ot A41.9 11/08/2015 CAROLINA CARRASCO DO Ot F32.9 11/08/2015 CARRASOC DO, CAROLINA Ot F41.9 11/08/2015 CARRASCO DO, CAROLINA Ot I10 11/08/2015 CARRASCO DO, CAROLINA Ot J18.9 11/08/2015 CARRASCO DO, CAROLINA Ot R09.02 11/08/2015 CARRASCO DO, CAROLINA Ot R31.9 11/09/2015 CARRASCO DO, CAROLINA Ot A41.9 11/09/2015 CARRASCO DO, CAROLINA Ot F32.9 11/09/2015 CARRASCO DO, CAROLINA Ot F41.9 11/09/2015 CARRASCO DO, CAROLINA Ot I10 11/09/2015 CARRASCO DO, CAROLINA Ot J18.9 11/09/2015 CARRASCO DO, CAROLINA Ot R09.02 11/09/2015 CARRASCO DO, CAROLINA Ot R31.9 11/10/2015 CARRASCO DO, CAROLINA Ot A41.9 11/10/2015 CARRASCO DO, CAROLINA Ot F32.9 11/10/2015 CARRASCO DO, CAROLINA Ot F41.9 11/10/2015 CARRASCO DO, CAROLINA Ot I10 11/10/2015 CARRASCO DO, CAROLINA Ot J18.9 11/10/2015 CARRASCO DO, CAROLINA Ot R09.02 11/10/2015 CARRASCO DO, CAROLINA Ot R31.9 11/10/2015 CARRASCO DO, CAROLINA Ot A41.9 SEPSIS, UNSPECIFIED ORGANISM 11/10/2015 CARRASCO DO, CAROLINA Ot F32.9 MAJOR DEPRESSIVE DISORDER, SINGLE EPISOD 11/10/2015 CARRASCO DO, CAROLINA Ot F41.9 ANXIETY DISORDER, UNSPECIFIED 11/10/2015 CARRASCO DO, CAROLINA Ot I10 ESSENTIAL (PRIMARY) HYPERTENSION 11/10/2015 CARRASCO DO, CAROLINA Ot J15.7 PNEUMONIA DUE TO MYCOPLASMA PNEUMONIAE 11/10/2015 CARRASCO DO, CAROLINA Ot J18.9 11/10/2015 CARRASCO DO, CAROLINA Ot J20.9 ACUTE BRONCHITIS, UNSPECIFIED 11/10/2015 CARRASCO DO, CAROLINA Ot R09.02 HYPOXEMIA 11/10/2015 CARRASCO DO, CAROLINA Ot R31.9 HEMATURIA, UNSPECIFIED 11/10/2015 CARRASCO DO, CAROLINA Ot Z23 ENCOUNTER FOR IMMUNIZATION 01/20/2016 Ot 649.63 01/20/2016 Ot 641.13 01/20/2016 Ot 285.9 01/20/2016 Ot 642.43 01/20/2016 Ot 648.23 01/20/2016 Ot 654.23 01/20/2016 Ot V72.63 01/20/2016 Ot V74.8 01/20/2016 MAYA MATOS MD Ot 574.20 01/20/2016 MAYA MATOS MD Ot V72.83 01/20/2016 MAYA MATOS MD Ot V74.8 03/05/2017 Ot I10 ESSENTIAL ( PRIMARY) HYPERTENSION 03/05/2017 Ot J40 BRONCHITIS, NOT SPECIFIED ACUTE OR CH 03/05/2017 Ot R05 COUGH 03/05/2017 Ot R50.9 FEVER, UNSPECIFIED 03/05/2017 Ot Z79.899 OTHER WAN SUPPORT SPECIALIST (CURRENT) DRUG THERAPY Procedures Code Description [place] [address] ROUTINE VENIPUNCTURE 07/31/2012 51459 UA OB DIP 07/31/2012 51381 CBC 07/31/2012 03771 GLUCOSE ELVIRA 1 HOUR 07/31/2012 47722 CMP 07/31/2012 9438845 GFR CALC (RESULT ONLY) 07/31/2012 97087 LDH 08/01/2012 27959 URIC ACID 08/01/2012 91294 URINE PROTEIN 08/01/2012 Esme Muller 08/01/2012 01641 URINE CREATININE (RANDOM) 08/04/2012 09782 PSYTX PT&/FAMILY 45 MINUTES 11/24/2012 87028 PSYTX PT&/FAMILY 45 MINUTES 01/09/2013 08272 PSYTX PT&/FAMILY 45 MINUTES 08/03/2013 Results Test Result Range Complete blood count (CBC) with automated white blood cell (WBC) differential - 03/19/17 07:40 Blood leukocytes automated count (number/volume) 13.4 10*3/uL 4.3-11.0 Blood erythrocytes automated count (number/volume) 4.95 10*6/uL 4.35-5.85 Venous blood hemoglobin measurement (mass/volume) 14.0 g/dL 11.5-16.0 Blood hematocrit (volume fraction) 43 % 35-52 Automated erythrocyte mean corpuscular volume 86 [foz_us] 80-99 Automated erythrocyte mean corpuscular hemoglobin (mass per erythrocyte) 28 pg 25-34 Automated erythrocyte mean corpuscular hemoglobin concentration measurement ( mass/volume) 33 g/dL 32-36 Automated erythrocyte distribution width ratio 14.3 % 10.0-14.5 Automated blood platelet count (count/volume) 344 10*3/uL 130-400 Automated blood platelet mean volume measurement 9.4 [foz_us] 7.4-10.4 Automated blood neutrophils/100 leukocytes 85 % 42-75 Automated blood lymphocytes/100 leukocytes 8 % 12-44 Blood monocytes/100 leukocytes 6 % 0-12 Automated blood eosinophils/100 leukocytes 1 % 0-10 Automated blood basophils/100 leukocytes 0 % 0-10 Blood neutrophils automated count (number/volume) 11.4 10*3 1.8-7.8 Blood lymphocytes automated count (number/volume) 1.1 10*3 1.0-4.0 Blood monocytes automated count (number/volume) 0.8 10*3 0.0-1.0 Automated eosinophil count 0.1 10*3/uL 0.0-0.3 Automated blood basophil count (count/volume) 0.0 10*3/uL 0.0-0.1 Complete urinalysis with reflex to culture - 03/19/17 07:40 Urine color determination YELLOW NRG Urine clarity determination CLEAR NRG Urine pH measurement by test strip 8 5-9 Specific gravity of urine by test strip 1.010 1.016- 1.022 Urine protein assay by test strip, semi-quantitative 1+ NEGATIVE Urine glucose detection by automated test strip NEGATIVE NEGATIVE Erythrocytes detection in urine sediment by light microscopy NEGATIVE NEGATIVE Urine ketones detection by automated test strip NEGATIVE NEGATIVE Urine nitrite detection by test strip NEGATIVE NEGATIVE Urine total bilirubin detection by test strip NEGATIVE NEGATIVE Urine urobilinogen measurement by automated test strip (mass/volume) NORMAL NORMAL Urine leukocyte esterase detection by dipstick NEGATIVE NEGATIVE Automated urine sediment erythrocyte count by microscopy (number/high power field) NONE NRG Automated urine sediment leukocyte count by microscopy (number/high power field ) NONE NRG Bacteria detection in urine sediment by light microscopy NEGATIVE NRG Squamous epithelial cells detection in urine sediment by light microscopy 10-25 NRG Crystals detection in urine sediment by light microscopy NONE NRG Casts detection in urine sediment by light microscopy NONE NRG Mucus detection in urine sediment by light microscopy NEGATIVE NRG Complete urinalysis with reflex to culture NO NRG Comprehensive metabolic panel - 03/19/17 07:40 Serum or plasma sodium measurement (moles/volume) 142 mmol/L 135-145 Serum or plasma potassium measurement (moles/volume) 3.6 mmol/L 3.6-5.0 Serum or plasma chloride measurement (moles/volume) 109 mmol/L 98-107 Carbon dioxide 23 mmol/L 21-32 Serum or plasma anion gap determination (moles/volume) 10 mmol/L 5-14 Serum or plasma urea nitrogen measurement (mass/volume) 11 mg/dL 7-18 Serum or plasma creatinine measurement (mass/volume) 0.71 mg/dL 0.60-1.30 Serum or plasma urea nitrogen/creatinine mass ratio 15 NRG Serum or plasma creatinine measurement with calculation of estimated glomerular filtration rate > NRG Serum or plasma glucose measurement (mass/volume) 112 mg/dL 70-105 Serum or plasma calcium measurement (mass/volume) 8.6 mg/dL 8.5-10.1 Serum or plasma total bilirubin measurement (mass/volume) 0.5 mg/dL 0.1-1.0 Serum or plasma alkaline phosphatase measurement (enzymatic activity/volume) 86 U/L 40-136 Serum or plasma aspartate aminotransferase measurement (enzymatic activity/ volume) 19 U/L 5-34 Serum or plasma alanine aminotransferase measurement (enzymatic activity/volume ) 32 U/L 0-55 Serum or plasma protein measurement (mass/volume) 6.9 g/dL 6.4-8.2 Serum or plasma albumin measurement (mass/volume) 3.9 g/dL 3.2-4.5 Encounters ACCT No. Visit Date/Time Discharge Status Pt. Type Provider Facility Loc./Unit Complaint [id number] 10/08/2013 16:48:00 10/08/2013 23:59:59 CLS Outpatient STACIE AMADOR DO [id number] 08/02/2013 13:38:00 08/02/2013 23:59:59 CLS Outpatient KRISTINA QUILES PSYD [id number] 01/05/2013 07:53:00 01/05/2013 23:59:59 CLS Outpatient KRISTINA QUILES PSYD [id number] 11/24/2012 10:03:00 11/24/2012 23:59:59 CLS Outpatient [id number] 08/01/2012 08:05:00 08/01/2012 23:59:59 CLS Outpatient KB [facility] [id number] 08/01/2012 08:05:00 08/01/2012 23:59:59 CLS Outpatient SARMADCHARLESBOR[facility]heron [facility] [id number] 01/29/2013 08:25:00 Document Registration [id number] 03/19/2017 07:19:00 03/19/2017 10:16:00 DIS Emergency GENA CHAPPELL MD [facility] ER FOOD POISONING [id number] 11/05/2015 07:11:00 11/10/2015 13:25:00 DIS Inpatient CAROLINA CARRASCO DO [facility] 4TH PNEUMONIA WITH HYPOXIA POSSIBLE SEPSIS [id number] 10/07/2015 06:32:00 10/07/2015 08:35:00 DIS Emergency FARZANA ABAD MD [facility] ER [id number] 01/27/2015 03:10:00 01/28/2015 17:20:00 DIS Inpatient YUN ERAZO FACC, PRO WHITE CCDS [facility] [id number] 01/26/2015 12:38:00 01/26/2015 23:59:59 CLS Outpatient VICTORINO MEI CAFETERIA HELPER [facility] QUICK [id number] 07/15/2014 02:34:00 07/15/2014 03:26:00 DIS Emergency CHRISTOPHER RASHID MD [facility] ER [id number] 05/09/2014 20:56:00 05/09/2014 22:11:00 DIS Emergency CHRISTOPHER RASHID MD [facility] ER [id number] 04/12/2014 07:54:00 04/12/2014 09:30:00 DIS Emergency MANUEL MCKEON MD [facility] ER [id number] 04/11/2014 16:39:00 04/11/2014 20:28:00 DIS Emergency AMY CROWELL [facility] ER [id number] 03/28/2014 09:49:00 03/28/2014 21:30:00 [id number] 03/21/2014 08:30:00 03/21/2014 23:59:59 CLS Outpatient MAYA MATOS MD [facility] PREOP [id number] 03/07/2014 02:39:00 03/07/2014 06:06:00 DIS Emergency MANUEL MCKEON MD [facility] ER [id number] 02/27/2017 19:30:00 Document Registration [id number] 07/27/2015 08:37:00 Document Registration [id number] 01/01/2013 04:50:00 Document Registration [id number] 11/27/2012 11:03:00 Document Registration [id number] 10/31/2012 07:15:00 Document Registration [id number] 10/30/2012 15:21:00 Document Registration [id number] 10/25/2012 21:35:00 Document Registration [id number] 10/23/2012 18:24:00 Document Registration [id number] 10/15/2012 12:40:00 Document Registration [id number] 09/30/2012 02:53:00 Document Registration [id number] 08/31/2012 20:04:00 Document Registration [id number] 07/06/2012 15:01:00 Document Registration [id number] 06/21/2012 22:55:00 Document Registration [id number] 05/11/2012 09:57:00 Document Registration [id number] 05/29/2011 05:42:00 Document Registration
[2017-10-19] MEDS ORDERED: NS IV 1000 ML 1,000 ML IV ONE (16:15)
[2017-10-19] MEDS ORDERED: KETOROLAC 30 MG/ML VIAL IVP ONE (16:15)
[2017-10-19] MEDS ORDERED: ONDANSETRON 4 MG/2 ML (SDV) Z0FRAN IVP ONE (16:15)
[2017-10-19 16:46] LABS: BUN/CREATININE RATIO 19; CALCIUM 9.5 MG/DL (8.5-10.1); CARBON DIOXIDE 22 MMOL/L (21-32); CHLORIDE 105 MMOL/L (98-107); CREATININE SERUM 0.64 MG/DL (0.60-1.30); GFR ESTIMATED > 60; GLUCOSE 100 MG/DL (70-105); POTASSIUM 4.1 MMOL/L (3.6-5.0); SODIUM 140 MMOL/L (135-145)
--- NOTE | 2017-10-19 17:32 | ED General ---
General Chief Complaint: Cough/Cold/Flu Symptoms Stated Complaint: CHILLS;NAUSEA Nursing Triage Note: ARRIVED VIA AMB TO ROOM 07. COMPLAINS OF NOT FEELING WELL STARTING TODAY. STATES SHE THINKS SHE HAS BEEN RUNNING A FEVER AND FEELS WEAK. HAS NOT TAKEN ANY MEDICATIONS. Nursing Sepsis Screen: No Definite Risk Source of Information: Patient Exam Limitations: No Limitations History of Present Illness Time Seen by Provider: 13:59 Initial Comments This 37-year-old woman presents to the emergency room with complaints of chills , cough, sweats, nausea, body aches, diarrhea, and shakiness. Diarrhea has been present for a couple of days. The other symptoms started last night. She denies fever. She has been taking Tylenol and ibuprofen. She feels dehydrated. Allergies and Home Medications Allergies Coded Allergies: codeine (Unverified Allergy, Mild, 05/29/11) vomitting Home Medications Alprazolam 1 Mg Tablet, 2 MG PO HS, (Reported) TAKES 2 (1 MG) TABLETS Benzonatate 100 Mg Capsule, 1-2 TAB PO TID, #30 Prescribed by: NAYELI BRIAN on 02/27/172019 D-Methorphan Hb/Prometh HCl 118 Ml Syrup, 1-2 TSP PO Q4H, #120 Prescribed by: NAYELI BRIAN on 02/27/172019 Duloxetine HCl 60 Mg Capsule.dr, 60 MG PO HS, (Reported) Methylprednisolone 4 Mg Tab.ds.pk, 4 MG PO UD, #1 Prescribed by: NAYELI BRIAN on 02/27/172019 Metoprolol Succinate 100 Mg Tab.er.24h, 100 MG PO HS, (Reported) Ondansetron 8 Mg Tab.rapdis, 8 MG PO EVERY 4 HOURS, #10 Prescribed by: GENA CHAPPELL on 03/19/17 0930 Ondansetron 4 Mg Tab.rapdis, 4 MG SL Q4H, #10 Prescribed by: CHRISTOPHER PUGA on 10/19/17 1742 [Flovent] , (Reported) Constitutional: see HPI EENTM: no symptoms reported Respiratory: see HPI Cardiovascular: no symptoms reported Gastrointestinal: see HPI Genitourinary: no symptoms reported : No Musculoskeletal: no symptoms reported Skin: no symptoms reported Psychiatric/Neurological: No Symptoms Reported Hematologic/Lymphatic: No Symptoms Reported Immunological/Allergic: no symptoms reported Past Xpnpiax-Rgaogt-Chgmmj Hx Patient Social History Alcohol Use: Denies Use Recreational Drug Use: No Smoking Status: Never a Smoker Recent Foreign Travel: No Contact w/Someone Who Travel: No Recent Infectious Disease Expo: No Recent Hopitalizations: No Immunizations Up To Date Tetanus Booster (TDap): Less than 5yrs Date of Influenza Vaccine: Aug 05, 2015 Seasonal Allergies Seasonal Allergies: Yes Surgeries History of Surgeries: Yes (RIGHT 5TH FINGER-2 SCREWS;) Surgeries: Adenoidectomy, Section, Gallbladder, Orthopedic, Tonsillectomy, Tubal Ligation Respiratory History of Respiratory Disorde: No (DENIES ) Currently Using CPAP: No Currently Using BIPAP: No Cardiovascular History of Cardiac Disorders: Yes Cardiac Disorders: Hypertension Neurological History of Neurological Disord: No Reproductive System Hx Reproductive Disorders: No Sexually Transmitted Disease: No HIV/AIDS: No 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 Gastrointestinal History of Gastrointestinal Di: No Musculoskeletal History of Musculoskeletal Dis: Yes Musculoskeletal Disorders: Scoliosis, Fractures Endocrine History of Endocrine Disorders: No HEENT Loss of Vision: Denies Hearing Impairment: Denies Cancer History of Cancer: No Psychosocial History of Psychiatric Problem: Yes (INSOMNIA) Behavioral Health Disorders: Sleep Difficulties, Anxiety, Depression Integumentary History of Skin or Integumenta: No Blood Transfusions History of Blood Disorders: No Adverse Reaction to a Blood Tr: No Family Medical History Family Medial History: Diabetes mellitus 19 MOTHER Physical Exam Vital Signs Vital Sign - Last 12Hours 10/19/17 10/19/17 15:42 17:44 Temp 98.0 Pulse 102 Resp 18 B/P (MAP) 143/85 (104) Pulse Ox 99 O2 Delivery Room Air Capillary Refill : Less Than 3 Seconds General Appearance: No Apparent Distress, WD/WN, Obese HEENT: PERRL/EOMI, TMs Normal, Normal ENT Inspection, Pharynx Normal Neck: Normal Inspection Respiratory: Lungs Clear, Normal Breath Sounds, No Accessory Muscle Use, No Respiratory Distress Cardiovascular: No Edema, No Murmur, Tachycardia Gastrointestinal: Normal Bowel Sounds, Non Tender, Soft Extremity: Normal Inspection, No Pedal Edema Neurologic/Psychiatric: Alert, Oriented x3, No Motor/Sensory Deficits, Normal 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, 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 Norm as Tested Skin: Normal Color, Warm/Dry Progress/Results/Core Measures Suspected Sepsis Recent Fever Within 48 Hours: No Infection Criteria Present: None New/Unexplained Altered Menta: No Sepsis Screen: No Definite Risk Sepsis Diagnosis: SIRS Temperature:98.0 Pulse: 102 Respiratory Rate: Blood Pressure 143 /85 Mean: 104 Laboratory Tests 10/19/17 16:15: Creatinine 0.64 Results/Orders Lab Results Laboratory Tests Test 10/19/17 16:15 Range/Units Sodium Level 140 135-145 MMOL/L Potassium Level 4.1 3.6-5.0 MMOL/L Chloride Level 105 98-107 MMOL/L Carbon Dioxide Level 22 21-32 MMOL/L Anion Gap 13 5-14 MMOL/L Blood Urea Nitrogen 12 7-18 MG/DL Creatinine 0.64 0.60-1.30 MG/DL Estimat Glomerular Filtration Rate > 60 BUN/Creatinine Ratio 19 Glucose Level 100 70-105 MG/DL Calcium Level 9.5 8.5-10.1 MG/DL My Orders Orders - CHRISTOPHER RASHID MD Basic Metabolic Panel (10/19/17 16:15) Influenza A And B Antigens (10/19/17 16:15) Saline Lock/Iv-Start (10/19/17 16:15) Ns Iv 1000 Ml (Sodium Chloride 0.9%) (10/19/17 16:15) Ondansetron Injection (Zofran Injectio (10/19/17 16:15) Ketorolac Injection (Toradol Injection) (10/19/17 16:15) Medications Given in ED Vital Signs/I&O Capillary Refill : Less Than 3 Seconds Blood Pressure Mean: 104 Progress Note : Progress Note Patient was treated with Zofran, Toradol, and IV fluids with good improvement in symptoms. Influenza screen was negative. Departure Impression Impression: Primary Impression: Influenza-like symptoms Additional Impressions: Nausea Diarrhea Qualified Codes: R19.7 - Diarrhea, unspecified Disposition: 01 HOME, SELF-CARE Condition: Improved Departure-Patient Inst. Decision time for Depature: 17:30 Referrals: NO,LOCAL PHYSICIAN (PCP/Family) Primary Care Physician Patient Instructions: Viral Syndrome (DC) Add. Discharge Instructions: Drink plenty of clear liquids. Use Zofran (ondansetron) dissolved under the tongue every 4 hours as needed for nausea and vomiting. You may take Tylenol and/or ibuprofen for discomfort. Return to care or contact your primary care provider if you are not improving as expected or if symptoms worsen. All discharge instructions reviewed with patient and/or family. Voiced understanding. Scripts Ondansetron (Zofran Odt) 4 Mg Tab.rapdis 4 MG SL Q4H, #10 TAB Prov: CHRISTOPHER RASHID MD 10/19/17 CHRISTOPHER RASHID MD Oct 19, 2017 17:32
[2017-10-19] MEDS ORDERED: ONDA4TAB8 SL (17:42)
[2017-10-19 17:44] VITALS: BP 134/81
== END 2017-10-19 17:43 | disposition home or self-care (01) ==
LOC: EDUNIT# 15:36 → ER 15:38
DX: J11.1 Influenza due to unidentified influenza virus with other respiratory manifestations (principal); R19.7 Diarrhea, unspecified; R11.0 Nausea; G47.9 Sleep disorder, unspecified; F41.9 Anxiety disorder, unspecified; I10 Essential (primary) hypertension; F32.9 Major depressive disorder, single episode, unspecified; Z90.89 Acquired absence of other organs; Z90.49 Acquired absence of other specified parts of digestive tract; Z87.81 Personal history of (healed) traumatic fracture; Z98.51 Tubal ligation status
CPT/HCPCS: 36415; 80048; 87804

== ENCOUNTER 2017-12-03 16:03 | Emergency (ER) | payer OTHER ==
[~2017-12-03] VITALS: Ht 154.9 cm; Wt 113.4 kg
[~2017-12-03 16:03] MED LIST changes: +ONDA4TAB8 SL
--- OUTSIDE RECORDS SUMMARY | 2017-12-03 16:11 | XMS REPORT | Continuity of Care Document ---
Author Author [facility] Address Unknown Phone Unavailable Allergies Active Description Code Type Severity Reaction Onset Reported/Identified Relationship to Patient Clinical Status Yes codeine [id number] Drug Allergy Mild N/A 05/29/2011 Yes Codeine [...] 11/08/2015 CAROLINA CARRASCO DO Ot F32.9 11/08/2015 CARRASCO DO, CAROLINA Ot F41.9 11/08/2015 CARRASCO DO, [...] 01/20/2016 Ot V72.63 01/20/2016 Ot V74.8 01/20/2016 SHAWNA ERAZO, MAYA Ot 574.20 01/20/2016 MAYA MATOS MD Ot V72.83 01/20/2016 SHAWNA ERAZO, MAYA Ot V74.8 02/27/2017 Ot I10 ESSENTIAL ( PRIMARY) HYPERTENSION 02/27/2017 Ot J40 BRONCHITIS, NOT SPECIFIED ACUTE OR CH 02/27/2017 Ot R05 COUGH 02/27/2017 Ot R50.9 FEVER, UNSPECIFIED 02/27/2017 Ot 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 03/05/2017 Ot I10 ESSENTIAL ( PRIMARY) HYPERTENSION 03/05/2017 Ot J40 BRONCHITIS, NOT SPECIFIED ACUTE OR CH 03/05/2017 Ot R05 COUGH 03/05/2017 Ot R50.9 FEVER, UNSPECIFIED 03/05/2017 Ot Z79.899 OTHER DETENTION (CURRENT) DRUG THERAPY 03/19/2017 GENA CHAPPELL MD Ot I10 ESSENTIAL (PRIMARY) HYPERTENSION 03/19/2017 GENA CHAPPELL MD Ot K52.9 NONINFECTIVE GASTROENTERITIS AND COLITIS 03/19/2017 GENA CHAPPELL MD Ot R11.2 NAUSEA WITH VOMITING, UNSPECIFIED Procedures Code [place] [address] ROUTINE VENIPUNCTURE 07/31/2012 20670 UA OB DIP 07/31/2012 76846 CBC 07/31/2012 80394 GLUCOSE ELVIRA 1 HOUR 07/31/2012 26238 CMP 07/31/2012 6163601 GFR CALC (RESULT ONLY) 07/31/2012 90142 LDH 08/01/2012 28183 URIC ACID 08/01/2012 21170 URINE PROTEIN 08/01/2012 Esme Muller 08/01/2012 15954 URINE CREATININE (RANDOM) 08/04/2012 61504 PSYTX PT&/FAMILY 45 MINUTES 11/24/2012 24987 PSYTX PT&/FAMILY 45 MINUTES 01/09/2013 61206 PSYTX PT&/FAMILY 45 MINUTES 08/03/2013 Results Test [...] plasma albumin measurement (mass/volume) 3.9 g/dL 3.2-4.5 Whole blood basic metabolic panel - 10/19/17 16:15 Serum or plasma sodium measurement (moles/volume) 140 mmol/L 135-145 Serum or plasma potassium measurement (moles/volume) 4.1 mmol/L 3.6-5.0 Serum or plasma chloride measurement (moles/volume) 105 mmol/L 98-107 Carbon dioxide 22 mmol/L 21-32 Serum or plasma anion gap determination (moles/volume) 13 mmol/L 5-14 Serum or plasma urea nitrogen measurement (mass/volume) 12 mg/dL 7-18 Serum or plasma creatinine measurement (mass/volume) 0.64 mg/dL 0.60-1.30 Serum or plasma urea nitrogen/creatinine mass ratio 19 NRG Serum or plasma creatinine measurement with calculation of estimated glomerular filtration rate > NRG Serum or plasma glucose measurement (mass/volume) 100 mg/dL 70-105 Serum or plasma calcium measurement (mass/volume) 9.5 mg/dL 8.5-10.1 Influenza virus A and B antigen detection - 10/19/17 16:15 FLU RESULT NEGATIVE FOR INFLUENZA A AND B ANTIGENS BY IA NRG Encounters ACCT No. Visit Date/Time Discharge Status Pt. Type Provider Facility Loc./Unit Complaint [id number] 10/08/2013 16:48:00 10/08/2013 23:59:59 CLS Outpatient STACIE AMADOR DO [id number] 08/02/2013 13:38:00 08/02/2013 23:59:59 CLS Outpatient KRISTINA QUILES PSYD [id number] 01/05/2013 07:53:00 01/05/2013 23:59:59 CLS Outpatient KRISTINA QUILES PSYD [id number] 11/24/2012 10:03:00 11/24/2012 23:59:59 CLS Outpatient [id number] 08/01/2012 08:05:00 08/01/2012 23:59:59 CLS Outpatient KRISTINA QUILES PSYD [id number] 08/01/2012 08:05:00 08/01/2012 23:59:59 CLS Outpatient KRISTINA QUILES PSYD [id number] 01/29/2013 08:25:00 Document Registration [id number] 10/19/2017 15:38:00 10/19/2017 17:43:00 DIS Emergency GAY ERAZO, CHRISTOPHER Kimball [facility] ER CHILLS;NAUSEA [id number] 03/19/2017 07:19:00 03/19/2017 10:16:00 DIS Emergency TA ERAZO, GENA Griffith [facility] ER FOOD POISONING [id number] 11/05/2015 07:11:00 11/10/2015 13:25:00 DIS Inpatient CAROLINA CARRASCO DO [facility] 4TH PNEUMONIA WITH HYPOXIA POSSIBLE SEPSIS [id number] 10/07/2015 06:32:00 10/07/2015 08:35:00 DIS Emergency FARZANA ABAD MD [facility] ER [id number] 01/27/2015 03:10:00 01/28/2015 17:20:00 DIS Inpatient YUN ERAZO FACC, PRO WHITE CCDS [facility] [id number] 01/26/2015 12:38:00 01/26/2015 23:59:59 CLS Outpatient VICTORINO MEI Lary SOMMERS [facility] QUICK [id number] 07/15/2014 02:34:00 07/15/2014 03:26:00 DIS Emergency CHRISTOPHER RASHID MD [facility] ER [id number] 05/09/2014 20:56:00 05/09/2014 22:11:00 DIS Emergency CHRISTOPHER RASHID MD [facility] ER [id number] 04/12/2014 07:54:00 04/12/2014 09:30:00 DIS Emergency MANUEL MCKEON MD [facility] ER [id number] 04/11/2014 16:39:00 04/11/2014 20:28:00 DIS Emergency AMY CROWELL [facility] ER [id number] 03/28/2014 09:49:00 03/28/2014 21:30:00 DIS Outpatient MAYA MATOS MD [facility] [id number] 03/21/2014 08:30:00 03/21/2014 23:59:59 CLS Outpatient MAYA MATOS MD [facility] PREOP [id number] 03/07/2014 02:39:00 03/07/2014 06:06:00 DIS Emergency MIKE ERAZO, MANUEL Curran [facility] [id number] 02/27/2017 19:30:00 Document Registration [id number] 07/27/2015 08:37:00 Document Registration [id number] 01/01/2013 04:50:00 Document Registration [id number] 11/27/2012 11:03:00 Document Registration [id number] 10/31/2012 07:15:00 Document Registration [id number] 10/30/2012 15:21:00 Document Registration [id number] 10/25/2012 21:35:00 Document Registration [id number] 10/23/2012 18:24:00 Document Registration [id number] 10/15/2012 12:40:00 Document Registration [id number] 09/30/2012 02:53:00 Document Registration [id number] 08/31/2012 20:04:00 Document Registration [id number] 07/06/2012 15:01:00 Document Registration [id number] 06/21/2012 22:55:00 Document Registration [id number] 05/11/2012 09:57:00 Document Registration [id number] 05/29/2011 05:42:00 Document Registration
[2017-12-03 16:31] LABS: BASOPHILS # (AUTO) 0.1 10^3/uL (0.0-0.1); BASOPHILS % (AUTO) 1 % (0-10); EOSINOPHILS # (AUTO) 0.2 10^3/uL (0.0-0.3); EOSINOPHILS % (AUTO) 2 % (0-10); HEMATOCRIT 42 % (35-52); HEMOGLOBIN 14.2 G/DL (11.5-16.0); LYMPHOCYTES % (AUTO) 20 % (12-44); MEAN CORPUSCULAR HEMOGLOBIN 29 PG (25-34); MEAN CORPUSCULAR HGB CONC 34 G/DL (32-36); MEAN CORPUSCULAR VOLUME 84 FL (80-99); MEAN PLATELET VOLUME 9.4 FL (7.4-10.4); MONOCYTES # (AUTO) 0.7 X 10^3 (0.0-1.0); MONOCYTES % (AUTO) 7 % (0-12); NEUTROPHILS # (AUTO) 7.2 X 10^3 (1.8-7.8); NEUTROPHILS % (AUTO) 71 % (42-75); PLATELET COUNT 313 10^3/uL (130-400); RED BLOOD COUNT 4.98 10^6/uL (4.35-5.85); RED CELL DISTRIBUTION WIDTH 13.5 % (10.0-14.5); WHITE BLOOD COUNT 10.1 10^3/uL (4.3-11.0)
[2017-12-03] MEDS ORDERED: NS IV 1000 ML 1,000 ML IV ONE (16:32)
[2017-12-03] MEDS ORDERED: KETOROLAC 30 MG/ML VIAL IVP STA (16:32)
[2017-12-03] MEDS ORDERED: ONDANSETRON 4 MG/2 ML (SDV) Z0FRAN IVP ONE (16:45)
[2017-12-03 16:47] LABS: ALANINE AMINOTRANSFERASE 37 U/L (0-55); ALBUMIN 4.2 GM/DL (3.2-4.5); ALKALINE PHOSPHATASE 101 U/L (40-136); BILIRUBIN,TOTAL 0.5 MG/DL (0.1-1.0); BUN/CREATININE RATIO 8; CALCIUM 9.4 MG/DL (8.5-10.1); CARBON DIOXIDE 23 MMOL/L (21-32); CHLORIDE 103 MMOL/L (98-107); CREATININE SERUM 0.74 MG/DL (0.60-1.30); GFR ESTIMATED > 60; GLUCOSE 103 MG/DL (70-105); SODIUM 138 MMOL/L (135-145); TOTAL PROTEIN 7.6 GM/DL (6.4-8.2)
[2017-12-03 16:49] LABS: BILIRUBIN,URINE NEGATIVE (NEGATIVE); CLARITY,URINE SLIGHTLY CLOUDY; COLOR,URINE YELLOW; GLUCOSE, URINE (UA) NEGATIVE (NEGATIVE); KETONES,URINE NEGATIVE (NEGATIVE); LEUKOCYTE ESTERASE ,URINE 1+ (NEGATIVE); NITRITE,URINE NEGATIVE (NEGATIVE); PH,URINE 5 (5-9); PROTEIN,URINE 2+ (NEGATIVE); UROBILINOGEN,URINE NORMAL (NORMAL)
[2017-12-03 17:00] LABS: BACTERIA,URINE FEW /HPF; SQUAMOUS EPITHELIAL CELL,UR >50 /HPF
--- NOTE | 2017-12-03 17:33 | ED GI ---
General Chief Complaint: Abdominal/GI Problems Stated Complaint: N/V/D Nursing Triage Note: PATIENT STATES THAT HER THORAT FEELS THICK AND THIS MORNIGN SHE WORK UP AND BEGAN HAVING NAUSEA, VOMITINGX4 AND DIARRHEA. TOOK ZOFRAN AT 1544. IT DID NOT HELP. Sepsis Screen: No Definite Risk History of Present Illness Date Seen by Provider: Dec 03, 2017 Time Seen by Provider: 16:20 Initial Comments 37-year-old female reports sore throat, cough, body aches, nausea, vomiting, and diarrhea since last evening. She reports her last food intake was at 1930 yesterday. She took Zofran at 1545 today but vomited immediately after. She reports getting an influenza vaccine in the fall. Patient has had no Tylenol or ibuprofen today. Timing/Duration: 1 Day Severity/Quality: Mild Location: Generalized Abdomen Associated Symptoms: Fever/Chills, Nausea/Vomiting, Weakness Allergies and Home Medications Allergies Coded Allergies: codeine (Unverified Allergy, Mild, 05/29/11) vomitting Home Medications Alprazolam 1 Mg Tablet, 2 MG PO HS, (Reported) TAKES 2 (1 MG) TABLETS Benzonatate 100 Mg Capsule, 1-2 TAB PO TID, #30 Prescribed by: NAYELI BRIAN on 02/27/172019 D-Methorphan Hb/Prometh HCl 118 Ml Syrup, 1-2 TSP PO Q4H, #120 Prescribed by: NAYELI BRIAN on 02/27/172019 Duloxetine HCl 60 Mg Capsule.dr, 60 MG PO HS, (Reported) Methylprednisolone 4 Mg Tab.ds.pk, 4 MG PO UD, #1 Prescribed by: NAYELI BRIAN on 02/27/172019 Metoprolol Succinate 100 Mg Tab.er.24h, 100 MG PO HS, (Reported) Ondansetron 8 Mg Tab.rapdis, 8 MG PO EVERY 4 HOURS, #10 Prescribed by: GENA CHAPPELL on 03/19/17 09 Ondansetron 4 Mg Tab.rapdis, 4 MG SL Q4H, #10 Prescribed by: CHRISTOPHER PUGA on 10/19/171741 Ondansetron 8 Mg Tab.rapdis, 8 MG PO Q6H PRN for NAUSEA/VOMITING-1ST LINE, #8 Ref 0 Prescribed by: LEIDY WALKER on 12/03/171745 [Flovent] , (Reported) Review of Systems Constitutional: see HPI, chills, fever, weakness EENTM: See HPI, Throat Pain Respiratory: No Symptoms Reported, See HPI Gastrointestinal: See HPI, Diarrhea, Nausea, Poor Appetite, Vomiting All Other Systems Reviewed Negative Unless Noted: Yes Past Hcrsfzb-Prehll-Dqmuye Hx Patient Social History Alcohol Use: Denies Use Recreational Drug Use: No 2nd Hand Smoke Exposure: No Recent Foreign Travel: No Contact w/Someone Who Travel: No Recent Infectious Disease Expo: No Recent Hopitalizations: No Immunizations Up To Date Tetanus Booster (TDap): Less than 5yrs Date of Influenza Vaccine: Aug 05, 2017 Seasonal Allergies Seasonal Allergies: Yes Surgeries History of Surgeries: Yes (RIGHT 5TH FINGER-2 SCREWS;) Surgeries: Adenoidectomy, Section, Gallbladder, Orthopedic, Tonsillectomy, Tubal Ligation Respiratory History of Respiratory Disorde: No (DENIES ) Currently Using CPAP: No Currently Using BIPAP: No Cardiovascular History of Cardiac Disorders: Yes Cardiac Disorders: Hypertension Neurological History of Neurological Disord: No Reproductive System Hx Reproductive Disorders: No Sexually Transmitted Disease: No HIV/AIDS: No 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 Gastrointestinal History of Gastrointestinal Di: No Musculoskeletal History of Musculoskeletal Dis: Yes Musculoskeletal Disorders: Scoliosis, Fractures Endocrine History of Endocrine Disorders: No HEENT Loss of Vision: Denies Hearing Impairment: Denies Cancer History of Cancer: No Psychosocial History of Psychiatric Problem: Yes (INSOMNIA) Behavioral Health Disorders: Sleep Difficulties, Anxiety, Depression Integumentary History of Skin or Integumenta: No Blood Transfusions History of Blood Disorders: No Adverse Reaction to a Blood Tr: No Reviewed Nursing Assessment Reviewed/Agree w Nursing PMH: Yes Family Medical History Family Medial History: Diabetes mellitus 19 MOTHER Physical Exam Vital Signs VS - Last 72 Hours, by Label 12/03/17 12/03/17 16:11 17:55 Temp 97.1 97.1 Pulse 105 105 Resp 18 18 B/P (MAP) 159/ 155/98 Pulse Ox 93 93 O2 Delivery Room Air Capillary Refill : Less Than 3 Seconds General Appearance: WD/WN, no apparent distress HEENT: PERRL/EOMI, normal ENT inspection, TMs normal, pharynx normal Neck: non-tender, full range of motion, supple, normal inspection, lymphadenopathy (R), lymphadenopathy (L) Respiratory: chest non-tender, lungs clear, normal breath sounds Cardiovascular: normal peripheral pulses Gastrointestinal: normal bowel sounds, non tender, soft, No rebound Back: normal inspection, no CVA tenderness Neurologic/Psychiatric: alert, normal mood/affect, oriented x 3 Skin: normal color, warm/dry Progress/Results/Core Measures Results/Orders Lab Results Laboratory Tests Test 12/03/17 16:20 12/03/17 16:24 12/03/17 16:41 Range/Units White Blood Count 10.1 4.3-11.0 10^3/uL Red Blood Count 4.98 4.35-5.85 10^6/uL Hemoglobin 14.2 11.5-16.0 G/DL Hematocrit 42 35-52 % Mean Corpuscular Volume 84 80-99 FL Mean Corpuscular Hemoglobin 29 25-34 PG Mean Corpuscular Hemoglobin Concent 34 32-36 G/DL Red Cell Distribution Width 13.5 10.0-14.5 % Platelet Count 313 130-400 10^3/uL Mean Platelet Volume 9.4 7.4-10.4 FL Neutrophils (%) (Auto) 71 42-75 % Lymphocytes (%) (Auto) 20 12-44 % Monocytes (%) (Auto) 7 0-12 % Eosinophils (%) (Auto) 2 0-10 % Basophils (%) (Auto) 1 0-10 % Neutrophils # (Auto) 7.2 1.8-7.8 X 10^3 Lymphocytes # (Auto) 2.0 1.0-4.0 X 10^3 Monocytes # (Auto) 0.7 0.0-1.0 X 10^3 Eosinophils # (Auto) 0.2 0.0-0.3 10^3/uL Basophils # (Auto) 0.1 0.0-0.1 10^3/uL Sodium Level 138 135-145 MMOL/L Potassium Level 4.0 3.6-5.0 MMOL/L Chloride Level 103 98-107 MMOL/L Carbon Dioxide Level 23 21-32 MMOL/L Anion Gap 12 5-14 MMOL/L Blood Urea Nitrogen 6 L 7-18 MG/DL Creatinine 0.74 0.60-1.30 MG/DL Estimat Glomerular Filtration Rate > 60 BUN/Creatinine Ratio 8 Glucose Level 103 70-105 MG/DL Calcium Level 9.4 8.5-10.1 MG/DL Total Bilirubin 0.5 0.1-1.0 MG/DL Aspartate Amino Transf (AST/SGOT) 23 5-34 U/L Alanine Aminotransferase (ALT/SGPT) 37 0-55 U/L Alkaline Phosphatase 101 40-136 U/L Total Protein 7.6 6.4-8.2 GM/DL Albumin 4.2 3.2-4.5 GM/DL Group A Streptococcus Screen NEGATIVE NEGATIVE Urine Color YELLOW Urine Clarity SLIGHTLY CLOUDY Urine pH 5 5-9 Urine Specific [place] 1.025 H 1.016-1.022 Urine Protein 2+ H NEGATIVE Urine Glucose (UA) NEGATIVE NEGATIVE Urine Ketones NEGATIVE NEGATIVE Urine Nitrite NEGATIVE NEGATIVE Urine Bilirubin NEGATIVE NEGATIVE Urine Urobilinogen NORMAL NORMAL MG/DL Urine Leukocyte Esterase 1+ H NEGATIVE Urine RBC (Auto) 3+ H NEGATIVE Urine RBC NONE /HPF Urine WBC NONE /HPF Urine Squamous Epithelial Cells >50 H /HPF Urine Crystals NONE /LPF Urine Bacteria FEW H /HPF Urine Casts NONE /LPF Urine Mucus SMALL H /LPF Urine Culture Indicated NO Micro Results Microbiology 12/03/17 Influenza Types A,B Antigen (AFSHIN) - Final, Complete My Orders Orders - LEIDY WALKER Cbc With Automated Diff (12/03/17 16:25) Comprehensive Metabolic Panel (12/03/17 16:25) Ua Culture If Indicated (12/03/17 16:25) Rapid Strep A Screen (12/03/17 16:25) Urine Bedside (12/03/17 16:26) Influenza A And B Antigens (12/03/17 16:32) Saline Lock/Iv-Start (12/03/17 16:32) Ns Iv 1000 Ml (Sodium Chloride 0.9%) (12/03/17 16:32) Ketorolac Injection (Toradol Injection) (12/03/17 16:32) Ondansetron Injection (Zofran Injectio (12/03/17 16:45) Medications Given in ED Current Medications Medications Dose Ordered Sig/Debbie Route Start Time Stop Time Status Last Admin Dose Admin Ondansetron HCl 8 mg ONCE ONCE IVP 12/03/17 16:45 12/03/17 16:46 DC 12/03/17 16:52 8 MG Sodium Chloride 1,000 ml @ 0 mls/hr Q0M ONCE IV 12/03/17 16:32 12/03/17 16:34 DC 12/03/17 16:52 0 MLS/HR Vital Signs/I&O Vital Sign - Last 12Hours 12/03/17 12/03/17 16:11 17:55 Temp 97.1 97.1 Pulse 105 105 Resp 18 18 B/P (MAP) 159/ 155/98 Pulse Ox 93 93 O2 Delivery Room Air Point of Care Testing Urine -Bedside: Negative Progress Note : Time: 16:20 Progress Note Initial evaluation completed, we will do labs, influenza and rapid strep swabs, IV normal saline 1 L, Zofran 8 mg IV 1710 labs essentially normal. Negative for influenza and rapid strep. 1720 temp 97.9. Discharge instructions and return precautions reviewed with patient. All questions answered. Departure Impression Impression: Primary Impression: Nausea vomiting and diarrhea Disposition: HOME, SELF-CARE Condition: Improved Departure-Patient Inst. Decision time for Depature: 17:30 Referrals: ZULEIKA GRIFFITH MD (PCP/Family) Primary Care Physician Patient Instructions: Nausea and Vomiting, Adult (DC) Add. Discharge Instructions: Clear liquid diet for the next 6 hours, then may advance to bland diet if no nausea or vomiting. Use Zofran every 4-6 hours for nausea and vomiting. Follow-up with your primary care provider in 2-3 days if symptoms are continuing. Return to emergency department if symptoms worsen, fever greater than 101, new problems or concerns. All discharge instructions reviewed with patient and/or family. Voiced understanding. Scripts Ondansetron (Zofran Odt) 8 Mg Tab.rapdis 8 MG PO Q6H Y for NAUSEA/VOMITING-1ST LINE, #8 TAB 0 Refills Prov: LEIDY WALKER 12/03/17 LEIDY WALKER Dec 03, 2017 17:33
[2017-12-03] MEDS ORDERED: ONDA8TAB9 PO (17:46)
[2017-12-03 17:55] VITALS: BP 155/98
== END 2017-12-03 17:55 | disposition home or self-care (01) ==
LOC: EDUNIT# 16:03 → ER 16:04
DX: R11.2 Nausea with vomiting, unspecified (principal); R19.7 Diarrhea, unspecified; F41.9 Anxiety disorder, unspecified; F32.9 Major depressive disorder, single episode, unspecified; G47.00 Insomnia, unspecified; I10 Essential (primary) hypertension; Z87.81 Personal history of (healed) traumatic fracture; Z87.59 Personal history of other complications of pregnancy, childbirth and the puerperium; Z98.51 Tubal ligation status; Z90.89 Acquired absence of other organs; Z88.5 Allergy status to narcotic agent
CPT/HCPCS: 36415; 80053; 81000; 84703; 85025; 87430; 87804

== ENCOUNTER 2018-05-24 12:42 | Inpatient (IN) | payer OTHER ==
[~2018-05-24] VITALS: Ht 154.9 cm; Wt 118.4 kg
[~2018-05-24 12:42] MED LIST changes: -ACET-2267 PO; -CETI10TA20 PO; -IBUP-30 PO
[2018-05-24] MEDS ORDERED: cefTRIAXone INJECTION 1,000 MG in NS (IVPB) 50 ML IV ONE (13:30)
[2018-05-24] MEDS ORDERED: NS IV 1000 ML 1,000 ML IV SCH (13:30)
[2018-05-24] MEDS ORDERED: IBUPROFEN 800 MG (MOTRIN) TAB PO ONE (13:30)
--- NOTE | 2018-05-24 13:41 | ED General ---
General Chief Complaint: Abdominal/GI Problems Stated Complaint: UTI/ RIGHT SIDE PAIN Nursing Triage Note: [facility] WITH A [facility], BLOOD WORK WAS DONE HERE AND PT WAS TOLD THE DR AT THE [facility] WAS WANTING HER TO HAVE THE BLOOD WORK DONE BEFORE PT STARTED ABX. AFTER PT'S BLOOD WAS DRAWN PT CAME TO ER WITH CC OF PAIN IN LOW BACK. Nursing Sepsis Screen: Possible Sepsis Risk Source of Information: Patient Exam Limitations: No Limitations History of Present Illness Date Seen by Provider: May 24, 2018 Time Seen by Provider: 13:37 Initial Comments To ER with concerns of urinary tract infection and sepsis. She's had about 3-4 days of body aches, itchy rash on her feet, nausea, vomiting and some left low back pain. She denies any dysuria such as urinary frequency or burning upon urination. She did have some loose stools however. She has a fever up to 104 upon arrival to ER that started yesterday. She's been taking Tylenol and Motrin to keep this a day. She denies any headache or neck pain. Denies any fevers or chills. She had a urinalysis done at [facility] walk-in [facility] and was told she had a urinary tract infection. She had outpatient labs done here at 12:40 PM today showing white count of 12,000, 17% bands, 91% neutrophils. She states that she finished a ten-day course of amoxicillin 500 mg twice a day on Tuesday of this past week which was 3 days ago just before the onset of symptoms. She was being treated for strep throat at that time. Timing/Duration: 2-3 Days Severity: Moderate Associated Systoms: No Headaches; Nausea/Vomiting Allergies and Home Medications Allergies Coded Allergies: codeine (Unverified Allergy, Mild, 05/29/11) vomitting Home Medications Acetaminophen 500 Mg Tablet, 1,000 MG PO Q6H PRN for PAIN-MILD OR TEMPATURE, ( Reported) ALTERNATES WITH IBU Alprazolam 1 Mg Tablet, 1-2 MG PO HS, (Reported) TAKES 1-2 (1 MG) TABLETS Alprazolam 1 Mg Tablet, 0.5 MG PO BID PRN for ANXIETY, (Reported) TAKES 1/2 (1MG) TABLET Cetirizine HCl 10 Mg Tablet, 10 MG PO DAILY PRN for ALLERGIES, (Reported) Duloxetine HCl 60 Mg Capsule.dr, 60 MG PO HS, (Reported) Ibuprofen 200 Mg Tablet, 400 MG PO Q6H PRN for PAIN-MILD OR TEMPATURE, (Reported ) ALTERNATES WITH TYLENOL Metoprolol Succinate 100 Mg Tab.er.24h, 100 MG PO HS, (Reported) Patient Home Medication List Home Medication List Reviewed: Yes Review of Systems Constitutional: see HPI, chills, fever, weakness EENTM: see HPI Respiratory: no symptoms reported Cardiovascular: no symptoms reported Genitourinary: no symptoms reported Musculoskeletal: no symptoms reported Skin: see HPI, pruritus, rash Psychiatric/Neurological: No Symptoms Reported Hematologic/Lymphatic: No Symptoms Reported Past Cofnqva-Cdlpui-Lukghv Hx Patient Social History 2nd Hand Smoke Exposure: No Recent Foreign Travel: No Contact w/Someone Who Travel: No Recent Infectious Disease Expo: No Recent Hopitalizations: No Immunizations Up To Date Tetanus Booster (TDap): Less than 5yrs Date of Influenza Vaccine: Aug 05, 2017 Seasonal Allergies Seasonal Allergies: Yes Past Medical History Surgeries: Yes (RIGHT 5TH FINGER-2 SCREWS;) Adenoidectomy, Section, Gallbladder, Orthopedic, Tonsillectomy, Tubal Ligation Respiratory: No (DENIES ) Currently Using CPAP: No Currently Using BIPAP: No Cardiac: Yes Hypertension Neurological: No : No Reproductive Disorders: No 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 Sexually Transmitted Disease: No HIV/AIDS: No Gastrointestinal: No Musculoskeletal: Yes Scoliosis, Fractures Endocrine: No Loss of Vision: Denies Hearing Impairment: Denies Cancer: No Psychosocial: Yes (INSOMNIA) Sleep Difficulties, Anxiety, Depression Integumentary: No Blood Disorders: No Adverse Reaction/Blood Tranf: No Family Medical History Diabetes mellitus 19 MOTHER Physical Exam Vital Signs Vital Signs - First Documented 05/24/18 13:18 Temp 104.3 Pulse 147 Resp 22 B/P (MAP) 117/56 (76) Pulse Ox 97 O2 Delivery Room Air Capillary Refill : Less Than 3 Seconds Height, Weight, BMI Height: 5'1.00" Weight: 250lbs. 0oz. 113.450422yv; 45.42 BMI Method:Stated General Appearance: No Apparent Distress, WD/WN Eyes: Bilateral Eye Normal Inspection, Bilateral Eye PERRL, Bilateral Eye EOMI HEENT: PERRL/EOMI, TMs Normal, Other (oropharynx inflamed with an adherent whitish discharge consistent with oropharyngeal candidiasis) Neck: Full Range of Motion, Normal Inspection Respiratory: Chest Non Tender, Lungs Clear, Normal Breath Sounds Cardiovascular: Normal Peripheral Pulses, Tachycardia (140 sinus) Gastrointestinal: Normal Bowel Sounds, Non Tender, Soft Neurologic/Psychiatric: Alert, Oriented x3, No Motor/Sensory Deficits Skin: Normal Color, Warm/Dry, Other (petechial rash around the eyes. She states that she did vomit just a few hours ago. States the top of her feet are very itchy but there is no rash to the top of her feet.) Focused Exam Lactate Level 05/24/18 13:35: Lactic Acid Level 2.42*H Lactic Acid Level Laboratory Tests Test 05/24/18 13:35 Lactic Acid Level 2.42 MMOL/L (0.50-2.00) *H Progress/Results/Core Measures Suspected Sepsis Recent Fever Within 48 Hours: Yes Infection Criteria Present: Documented Infection New/Unexplained Altered Menta: No Sepsis Screen: Possible Sepsis Risk SIRS Temperature:104.3 Pulse: 147 Respiratory Rate: 22 Blood Pressure 117 /56 Mean: 76 05/24/18 13:35: Lactic Acid Level 2.42*H 05/24/18 13:35: Lactic Acid Level 2.42*H 05/24/18 13:35: Lactic Acid Level 2.42*H Results/Orders Lab Results Laboratory Tests Test 05/24/18 12:42 05/24/18 13:35 05/24/18 13:43 05/24/18 13:45 Range/Units Serum Test, Qualitative NEGATIVE NEGATIVE Monoscreen NEGATIVE NEGATIVE Lactic Acid Level 2.42 *H 0.50-2.00 MMOL/L Group A Streptococcus Screen NEGATIVE NEGATIVE Urine Color YELLOW Urine Clarity CLEAR Urine pH 5 5-9 Urine Specific Dante 1.020 1.016-1.022 Urine Protein 3+ H NEGATIVE Urine Glucose (UA) NEGATIVE NEGATIVE Urine Ketones 1+ H NEGATIVE Urine Nitrite NEGATIVE NEGATIVE Urine Bilirubin 1+ H NEGATIVE Urine Urobilinogen 4 H NORMAL MG/DL Urine Leukocyte Esterase 3+ H NEGATIVE Urine RBC (Auto) 5+ H NEGATIVE Urine RBC 0-2 /HPF Urine WBC 50-100 H /HPF Urine Squamous Epithelial Cells 10-25 H /HPF Urine Renal Epithelial Cells NONE /HPF Urine Crystals NONE /LPF Urine Bacteria MODERATE H /HPF Urine Casts PRESENT /LPF Urine Hyaline Casts RARE /LPF Urine Mucus MODERATE H /LPF Urine Culture Indicated YES My Orders Orders - JEANNE VILCHIS PHYSICAL THERAPY RESIDENT Iv Heplock-Insert (Order) (05/24/18 13:25) Blood Culture (05/24/18 13:25) Lactic Acid Analyzer (05/24/18 13:25) Ua Culture If Indicated (05/24/18 13:25) Hcg,Qualitative Serum (05/24/18 13:25) Ns Iv 1000 Ml (Sodium Chloride 0.9%) (05/24/18 13:30) Ceftriaxone Injection (Rocephin Injectio (05/24/18 13:30) Ibuprofen Tablet (Motrin Tablet) (05/24/18 13:30) Tick Panel With Lyme Eia (05/24/18 13:36) Monotest (05/24/18 13:36) Rapid Strep A Screen (05/24/18 13:36) Diphenhydramine Injection (Benadryl Inje (05/24/18 13:45) Ondansetron Injection (Zofran Injectio (05/24/18 13:45) Ketorolac Injection (Toradol Injection) (05/24/18 13:45) Acetaminophen Tablet/Caplet (Tylenol T (05/24/18 14:15) Urine Culture (05/24/18 13:43) Medications Given in ED Current Medications Medications Dose Ordered Sig/Debbie Route Start Time Stop Time Status Last Admin Dose Admin Acetaminophen 650 mg ONCE ONCE PO 05/24/18 14:15 05/24/18 14:16 DC 05/24/18 14:08 650 MG Ceftriaxone Sodium 1000 mg/ Sodium Chloride 50 ml @ 100 mls/hr ONCE ONCE IV 05/24/18 13:30 05/24/18 13:59 DC 05/24/18 14:01 100 MLS/HR Diphenhydramine HCl 25 mg ONCE ONCE IVP 05/24/18 13:45 05/24/18 13:46 DC 05/24/18 14:01 25 MG Ibuprofen 800 mg ONCE ONCE PO 05/24/18 13:30 05/24/18 14:03 DC 05/24/18 14:01 800 MG Ketorolac Tromethamine 30 mg ONCE ONCE IVP 05/24/18 13:45 05/24/18 13:46 DC 05/24/18 14:01 30 MG Ondansetron HCl 4 mg ONCE ONCE IVP 05/24/18 13:45 05/24/18 13:46 DC 05/24/18 14:01 4 MG Vital Signs/I&O 05/24/18 05/24/18 05/24/18 05/24/18 13:18 14:01 14:01 14:08 Temp 104.3 104.3 104.3 104.3 Pulse 147 Resp 22 B/P (MAP) 117/56 (76) Pulse Ox 97 O2 Delivery Room Air Capillary Refill : Less Than 3 Seconds Blood Pressure Mean: 76 Departure Communication (Admissions) Time/Spoke to Admitting Phy: 15:[address] Arcos. We will admit Impression Primary Impression: Thrush Additional Impressions: UTI (urinary tract infection) Sepsis Disposition: ADMITTED INPATIENT Condition: Stable Admissions Decision to Admit Reason: Admit from ER (General) Decision to Admit/Date: May 24, 2018 Time/Decision to Admit Time: 15:11 Departure-Patient Inst. Referrals: ZULEIKA GRIFFITH MD (PCP/Family) Primary Care Physician JEANNE VILCHIS APRN May 24, 2018 13:41
[2018-05-24] MEDS ORDERED: ONDANSETRON 4 MG/2 ML (SDV) Z0FRAN IVP ONE (13:45)
[2018-05-24] MEDS ORDERED: KETOROLAC 30 MG/ML VIAL IVP ONE (13:45)
[2018-05-24] MEDS ORDERED: diphenhydrAMINE 50 MG/ML INJ (BENADRYL) IVP ONE (13:45)
[2018-05-24 13:58] LABS: CLARITY,URINE CLEAR; COLOR,URINE YELLOW; GLUCOSE, URINE (UA) NEGATIVE (NEGATIVE); KETONES,URINE 1+ (NEGATIVE); LEUKOCYTE ESTERASE ,URINE 3+ (NEGATIVE); NITRITE,URINE NEGATIVE (NEGATIVE); PH,URINE 5 (5-9); PROTEIN,URINE 3+ (NEGATIVE); UROBILINOGEN,URINE 4 MG/DL (NORMAL)
--- OUTSIDE RECORDS SUMMARY | 2018-05-24 14:01 | XMS REPORT ---
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 Role Phone NICO WEAVER Unavailable PROBLEMS Type Condition ICD9-CM Code QIH88-ZL Code Onset Dates Condition Status SNOMED Code Problem Supervision of other normal V22.1 Active 852540376 Problem Nausea with vomiting 787.01 Active 65833056 Problem Elevated blood pressure reading without diagnosis of hypertension 796.2 Active 285897662 Problem Acute seasonal allergic rhinitis, unspecified trigger J30.2 Active 795467499 Problem Seasonal allergic rhinitis due to other allergic trigger J30.89 Active 714566719 Problem Previous delivery, unspecified as to episode of care or not applicable 654.20 Active 471167067 Problem Unspecified and placental problem affecting management of mother , unspecified as to episode of care 656.90 Active 20050887 Problem Major depressive disorder, recurrent, moderate F33.1 Active 75292022 Problem Generalized anxiety disorder F41.1 Active 48097499 Problem Other procreative management, counseling and advice V26.49 Active 20975684 Problem Unspecified high-risk V23.9 Active 64287747 Problem Encounter for removal of intrauterine contraceptive device V25.12 Active 14126991 Problem Need for prophylactic vaccination and inoculation, Influenza V04.81 Active 131929593 Problem Screening for malignant neoplasm of the cervix V76.2 Active 609679627 Problem 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 [address] [facility] [id number] [address] Apr, Sore throat J02.9 ; Hordeolum externum of right upper eyelid H00.011 ; Itch of eye, right H57.8 ; Strep throat J02.0 and BMI 45.0-49.9 , adult Z68.42 [facility] WALK IN [address] [address] Jan, Pharyngitis, unspecified etiology J02.9 ; Tonsillitis J03.90 ; Fever R50.9 and BMI 45.0-49.9, adult Z68.42 [facility] W[facility] IN [address] [address] Oct, Intractable vomiting with nausea, unspecified vomiting type R11.2 ; Gastroenteritis K52.9 and BMI 45.0-49.9, adult Z68.42 [facility] WALK IN [address] [address] Aug, Acute seasonal allergic rhinitis, unspecified trigger J30.2 and BMI 45.0-49.9, adult Z68.[address] [address] Aug, Dental examination Z01.20 [facility] [address] [address] Aug, BMI 45.0-49.9, adult Z68.42 and Sore throat J02.[address] [address] 14 Jun, 2017 Encounter for immunization Z23 [facility] [place] [address] [address] Apr, Acute seasonal allergic rhinitis due to other allergen J30.89 [facility] [address] [id number] Mar, Dental examination Z01.20 [facility] [address] [address] February, Dental examination Z01.20 [facility] W[facility] IN [address] [address] February, Herpes zoster without complication B02.9 [facility] [address] [place] [id number] [place] [address] February, Herpes zoster without complication B02.9 and Acute upper respiratory infection, unspecified J06.9 [facility] [address] [place] [id number] [place] [address] Jan, Visit for TB skin test Z11.1 [facility] [address] [place] [address] Nov, Encounter for immunization Z23 [facility] [address] [place] [address] Sep, Seasonal allergic rhinitis due to other allergic trigger J30.89 [facility] [address] [place] [address] Aug, Acute non-recurrent maxillary sinusitis J01.00 and Cough R05 [facility] [address] [place] [id number] [place] [address] Jul, Encounter for immunization Z23 [facility] [address] [place] [address] May, Visit for TB skin test Z11.1 [facility] [place] [id number] [place] [address] Mar, Insect bite, initial encounter W57.XXXA and Swelling of left hand M79.89 [place] [id number] [place] [address] February, Major depressive disorder, recurrent, moderate F33.1 and Generalized anxiety disorder F41.[address] [address] Jan, Major depressive disorder, recurrent, moderate F33.1 and Generalized anxiety disorder F41.[address] [address] Jan, Major depressive disorder, recurrent, moderate F33.1 and Generalized anxiety disorder F41.1 [facility] [address] [place] [id number] [place] [address] Jan, Major depressive disorder, recurrent, moderate F33.1 and Generalized anxiety disorder F41.1 [facility] [address] [place] [id number] [place] [address] Dec, Major depressive disorder, recurrent, moderate F33.1 and Generalized anxiety disorder F41.1 [facility] [address] [place] [id number] [place] [address] Dec, Major depressive disorder, recurrent, moderate F33.1 and Generalized anxiety disorder F41.1 [facility] [address] [place] [id number] [place] [address] Sep, Upper respiratory symptom R09.89 [facility] [address] [place] [id number] [place] [address] Aug, Major depressive disorder, recurrent, moderate F33.1 and Generalized anxiety disorder F41.1 [facility] [address] [place] [id number] [place] [address] Jul, Encounter for immunization Z23 [facility] [address] [place] [id number] [place] [address] Apr, Generalized anxiety disorder 300.02 [facility] [address] [place] [id number] [place] [address] 14 Jan, 2015 [facility] [address] [place] [id number] [place] [address] Jan, [facility] [address] [address] Jun, [facility] [address] [place] [id number] [place] [address] Jun, [facility] [address] [address] Sep, [facility] [address] [id number] [place] [address] Sep, [facility] [place] [facility] [address] [id number] [place] [address] Jul, [facility] [place] [facility] [address] [id number] [place] [address] Jul, [facility] [place] [facility] [address] [id number] [place] [address] Jul, [facility] [place] [facility] [address] [id number] [place] [address] Jul, [facility] [place] [facility] [address] [id number] [place] [address] Jul, [facility] [place] [facility] [address] [id number] [place] [address] Jul, [facility] [place] [facility] [address] [id number] [place] [address] February, [facility] [place] [facility] [address] [id number] [place] [address] Dec, [facility] [place] [facility] [address] [id number] [place] [address] Dec, [facility] [place] [facility] [address] [id number] [place] [address] Dec, [facility] [place] [facility] [address] [id number] [place] [address] 08 Nov, 2012 [facility] [place] [facility] [address] [id number] [place] [address] Sep, [facility] [place] [facility] [address] [id number] [place] [address] 15 Sep, 2012 [facility] [place] [facility] [address] [facility] [id number] [place] [address] 14 Sep, 2012 [facility] [place] [facility] [address] [id number] [place] [address] 14 Sep, 2012 [facility] [place] [facility] [address] [id number] [place] [address] 16 Aug, 2012 [facility] [place] [facility] [address] [facility] [id number] [place] [address] 16 Aug, 2012 [facility] [place] [facility] [address] [facility] [id number] [place] [address] 05 Aug, 2012 [facility] [place] [facility] [address] [facility] [id number] [place] [address] 05 Aug, 2012 [facility] [place] [facility] [address] [place] [id number] [place] [address], [place] [address] 30 Jul, 2012 [facility] [place] [facility] [address] [facility] [id number] [place] [address] 30 Jul, 2012 [facility] [place] [facility] [address] [address] 19 Jul, 2012 [facility] [place] [facility] [address] [facility] [id number] [place] [address] 16 Jul, 2012 [facility] [place] [facility] [address] [place] [id number] [place] [address] 16 Jul, 2012 [facility] [place] [facility] [address] [place] [id number] [place] [address] 15 Jul, 2012 [facility] [place] [facility] [address] [facility] [id number] [place] [address] 15 Jul, 2012 [facility] [place] [facility] [address] [facility] [id number] [place] [address] 27 Jun, 2012 [facility] [place] [facility] [address] [facility] [id number] [place] [address] 25 Sep2011 [facility] [place] [facility] [address] [facility] [id number] [place] [address] 24 Sep2011 [facility] [place] [facility] [address] [place] [id number] [address] 21 Sep, 2011 [facility] [place] [facility] [address] [id number] [place] [address] 17 Jun, 2012 [facility] [place] [facility] [address] [id number] [place] [address] 13 Jun, 2012 [facility] [place] [facility] [address] [id number] [place] [address] 11 Jun, 2012 [facility] [place] [facility] [address] [id number] [place] [address] 30 May, 2012 [facility] [place] [facility] [address] [id number] [place] [address] 29 May, 2012 [facility] [place] [facility] [address] [id number] [place] [address] May, [facility] [place] [facility] [address] [id number] [place] [address] 15 May, 2012 [facility] [place] [facility] [address] [id number] [place] [address] May, [facility] [place] [facility] [address] [id number] [place] [address] May, [facility] [place] [facility] [address] [id number] [place] [address] Apr, [facility] [place] [facility] [address] [id number] [place] [address] Apr, [facility] [place] [facility] [address] [id number] [place] [address] Apr, [facility] [place] [facility] [address] [id number] [place] [address] Apr, [facility] [place] [facility] [address] [id number] [place] [address] Apr, [facility] [place] [facility] [address] [id number] [place] [address] Apr, [facility] [place] [facility] [address] [id number] [place] [address] Mar, [facility] [address] [place] [id number] [address] Mar, [facility] [address] [place] [address] Mar, [facility] [address] [place] [address] Mar, [facility] [address] [place] [id number] [place] [address] Mar, [facility] [address] [place] [id number] [place] [address] Mar, [facility] [address] [place] [id number] [place] [address] Mar, [facility] [address] [place] [id number] [place] [address] Mar, [facility] [address] [place] [address] February, [facility] [id number] [place] [address] February, IMMUNIZATIONS No Known Immunizations SOCIAL HISTORY Never Assessed REASON FOR VISIT sore throat/fever/body aches/cough that all started last noc. shari, pt reports she hasnt taken anything for the fever or body aches since last noc, ibuprofen 200mg X 3 PO at 1805 PLAN OF CARE Activity Details Follow Up prn Reason: VITAL SIGNS Height 61 in 2018-02-03 Weight 260.0 lbs 2018-02-03 Temperature 103.5 degrees Fahrenheit 2018-02-03 Heart Rate 92 bpm 2018-02-03 Respiratory Rate 20 2018-02-03 BMI 49.12 kg/m2 2018-02-03 Blood pressure systolic 130 mmHg 2018-02-03 Blood pressure diastolic 80 mmHg 2018-02-03 MEDICATIONS Medication Instructions Dosage Frequency Start Date End Date Duration Status Phentermine HCl 37.5 MG Not-Taking Nasonex 50 MCG/ACT Nasally Once a day 2 sprays in each nostril 24h Sep, 30 day(s) Not-Taking ProAir HFA 108 (90 Base) MCG/ACT Inhalation every 4-6 hours as needed 2 puffs as needed Not-Taking Augmentin 875-125 MG Orally every 12 hrs 1 tablet 12h 20 Jan, 2018Jan 10 day(s) Active Flonase 50 MCG/ACT Nasally Once a day 1 spray in each nostril 24h Aug, 30 day(s) Not-Taking Metoprolol Tartrate 100 mg Orally Once a day 1 tablet 24h Active Duloxetine HCl 60 MG Orally Once a day 1 capsule 24h Active Xanax 1 MG Orally PRN HS 1 tablet Active Acyclovir 800 MG Orally Five times a day 1 tablet February, 7 days Not-Taking RESULTS Name Result Date Reference Range INFLUENZA A & B (IN HOUSE) 2018-02-03 INFLUENZA A negative INFLUENZA B negative Control + Lot # [id number] Exp date 12 15 19 PROCEDURES Procedure Date Ordered Result Body Site INFLUENZA ASSAY W/OPTIC February 03, 2018 INSTRUCTIONS MEDICATIONS ADMINISTERED No Known Medications MEDICAL (GENERAL) HISTORY Type Description Date Medical History hypertension Medical History anxiety Medical History Shingles Surgical History section Surgical History tubal ligation Surgical History cholecystectomy Surgical History tonsilectomy Surgical History pinkie surgery Hospitalization History chest pain 2013 Hospitalization History Surgery(s)/Childbirth(s) Hospitalization History dehydration 2009 Hospitalization History pneumonia Hospitalization History Shingles February 2017
--- OUTSIDE RECORDS SUMMARY | 2018-05-24 14:02 | XMS REPORT ---
Author Author DUSTINALEXANDER WATSON [facility] Address Unknown Care Team Providers Care Website Project Manager Name Role Phone ALEXANDER ADRIAN Unavailable PROBLEMS Type Condition ICD9-CM Code QIR87-IR Code Onset Dates Condition Status SNOMED Code Problem Supervision of other normal V22.1 Active 280838423 Problem Nausea with vomiting 787.01 Active 46943464 Problem Elevated blood pressure reading without diagnosis of hypertension 796.2 Active 576431642 Problem Acute seasonal allergic rhinitis, unspecified trigger J30.2 Active 669003446 Problem Seasonal allergic rhinitis due to other allergic trigger J30.89 Active 652927413 Problem Previous delivery, unspecified as to episode of care or not applicable 654.20 Active 370841923 Problem Unspecified and placental problem affecting management of mother , unspecified as to episode of care 656.90 Active 61820903 Problem Major depressive disorder, recurrent, moderate F33.1 Active 82357918 Problem Generalized anxiety disorder F41.1 Active 99785405 Problem Other procreative management, counseling and advice V26.49 Active 82446238 Problem Unspecified high-risk V23.9 Active 82089661 Problem Encounter for removal of intrauterine contraceptive device V25.12 Active 34005440 Problem Need for prophylactic vaccination and inoculation, Influenza V04.81 Active 986766858 Problem Screening for malignant neoplasm of the cervix V76.2 Active 977911475 Problem 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 Active [id number] ALLERGIES Substance Reaction Event Type Date Status Codeine Unknown Drug Allergy Mar, Active ENCOUNTERS Encounter Location Date Diagnosis [facility] [address] [id number] [address] Oct, Intractable vomiting with nausea, unspecified vomiting type R11.2 ; Gastroenteritis K52.9 and BMI 45.0-49.9, adult Z68.42 [facility] [address] [id number] [address] Aug, Acute seasonal allergic rhinitis, unspecified trigger J30.2 and BMI 45.0-49.9, adult Z68.42 [facility] [address] [address] Aug, Dental examination Z01.20 [facility] [address] [place] [address] Aug, BMI 45.0-49.9, adult Z68.42 and Sore throat J02.9 [facility] [address] [address] 14 Jun, 2017 Encounter for immunization Z23 [facility] [address] [place] [address] Apr, Acute seasonal allergic rhinitis due to other allergen J30.89 [facility] [address] [id number] Mar, 2017 Dental examination Z01.20 [facility] [address] [address] February, Dental examination Z01.[address] [facility] IN [address] [address] February, Herpes zoster without complication B02.9 [facility] [address] [address] February, Herpes zoster without complication B02.9 and Acute upper respiratory infection, unspecified J06.9 [facility] [address] [place] [address] Jan, Visit for TB skin test Z11.1 [facility] [address] [place] [address] 07 Nov, 2016 Encounter for immunization Z23 [facility] [address] [address] Sep, Seasonal allergic rhinitis due to other allergic trigger J30.89 [facility] [id number] [place] [address] Aug, Acute non-recurrent maxillary sinusitis J01.00 and Cough R05 [facility] [id number] [place] [address] Jul, Encounter for immunization Z23 [facility] [address] [address] May, Visit for TB skin test Z11.1 [facility] [address] [address] Mar, Insect bite, initial encounter W57.XXXA and Swelling of left hand M79.89 [id number] [place] [address] February, Major depressive disorder, recurrent, moderate F33.1 and Generalized anxiety disorder F41.1 [id number] [place] [address] Jan, Major depressive disorder, recurrent, moderate F33.1 and Generalized anxiety disorder F41.1 [place] [id number] [place] [address] Jan, Major depressive disorder, recurrent, moderate F33.1 and Generalized anxiety disorder F41.1 [address] [id number] [place] [address] Jan, Major depressive disorder, recurrent, moderate F33.1 and Generalized anxiety disorder F41.1 [address] [place] [id number] [place] [address] Dec, Major depressive disorder, recurrent, moderate F33.1 and Generalized anxiety disorder F41.1 [address] [id number] [place] [address] Dec, Major depressive disorder, recurrent, moderate F33.1 and Generalized anxiety disorder F41.1 [facility] [id number] [place] [address] Sep, Upper respiratory symptom R09.89 [facility] [address] [address] Aug, Major depressive disorder, recurrent, moderate F33.1 and Generalized anxiety disorder F41.1 [facility] [id number] [place] [address] Jul, Encounter for immunization Z23 [facility] [address] [address] Apr, Generalized anxiety disorder 300.02 [facility] [address] [address] 14 Jan, 2015 [facility] [id number] [place] [address] Jan, [facility] [id number] [place] [address] Jun, [facility] [id number] [place] [address] Jun, [facility] [id number] [place] [address] Sep, [facility] [id number] [place] [address] Sep, [facility] [id number] [place] [address] Jul, [facility] [id number] [place] [address] Jul, [facility] [id number] [place] [address] Jul, [facility] [id number] [place] [address] Jul, [facility] [id number] [place] [address] 17 Jul, 2013 [facility] [address] [id number] [place] [address] 17 Jul, 2013 [facility] [place] [facility] [address] [id number] [place] [address] February, [facility] [place] [facility] [address] [id number] [place] [address] Dec, [facility] [place] [facility] [address] [id number] [place] [address] Dec, [facility] [place] [facility] [address] [id number] [place] [address] Dec, [facility] [place] [facility] [address] [id number] [place] [address] Nov, [facility] [place] [facility] [address] [id number] [place] 15 Sep, 2012 [facility] [place] [facility] [address] [id number] [place] [address] 15 Sep, 2012 [facility] [place] [facility] [address] [id number] [place] [address] 14 Sep, 2012 [facility] [place] [facility] [address] [id number] [place] [address] 14 Sep, 2012 [facility] [place] [facility] [address] [id number] [place] [address] 16 Aug, 2012 [facility] [place] [facility] [address] [id number] [place] [address] 9[address] 16 Aug, 2012 [facility] [place] [facility] [address] [id number] [place] [address] 05 Aug, 2012 [facility] [place] [facility] [address] [id number] [place] [address] 05 Aug, 2012 [facility] [place] [facility] [address] [id number] [place] [address] 30 Jul, 2012 [facility] [place] [facility] [address] [id number] [place] [address] 30 Jul, 2012 [facility] [place] [facility] [address] [id number] [place] [address] 19 Jul, 2012 [facility] [place] [facility] [address] [id number] [place] [address] 25[address] 16 Jul, 2012 [facility] [place] [facility] [address] [id number] [place] [address] 114[address] 16 Jul, 2012 [facility] [place] [facility] [address] [id number] [place] [address] 15 Jul, 2012 [facility] [place] [facility] [address] [id number] [place] [address], [place] [address] 15 Jul, 2012 [facility] [place] [facility] [address] [id number] [place] [address] 27 Jun, 2012 [facility] [place] [facility] [address] [id number] [place] [address] 160[address] 25 Sep2011 [facility] [place] [facility] [address] [id number] [place] [address] 39[address] 24 Jun, 2012 [facility] [place] [facility] [address] [id number] [place] [address] 8[address] 21 Jun, 2012 [facility] [place] [facility] [address] [id number] [place] [address] 17 Sep2011 [facility] [place] [facility] [address] [id number] [place] [address] 2547 13 Jun, 2012 [facility] [place] [facility] [address] [id number] [place] [address] 25[address] 11 Jun, 2012 [facility] [place] [facility] [address] [id number] [place] [address]- [address] 30 May, 2012 [facility] [place] [facility] [address] [id number] [place] [address]- 25[address] 29 May, 2012 [facility] [place] [facility] [address] [id number] [place] [address]- 8[address] May, [facility] [place] [facility] [address] [id number] [place] [address]- 69[address] 15 May, 2012 [facility] [place] [facility] [address] [id number] [place] [address] May, [facility] [place] [facility] [address] [id number] [place] [address] 30[address] May, [facility] [place] [facility] [address] [id number] [place] [address]- [address] 31 Apr, 2012 [facility] [place] [facility] [address] [id number] [place] [address]- [address] 30 Apr, 2012 [facility] [place] [facility] [address] [id number] [place] [address]- 8265 Apr, [facility] [place] [facility] [address] [id number] [place] [address]- 112[address] Apr, [facility] [place] [facility] [address] [id number] [place] [address] Apr, [facility] [place] [facility] [address] [id number] [place] [address] Apr, [facility] [place] [facility] [address] [id number] [place] [address] Mar, [facility] [place] [facility] [address] [id number] [place] [address] Mar, [facility] [place] [facility] [address] [id number] [place] [address] 12[address] Mar, [facility] [place] [facility] [address] [id number] [place] [address] 74[address] Mar, [facility] [place] [facility] [address] [id number] [place] [address]- 4[address] Mar, [facility] [place] [facility] [address] [id number] [place] [address]- 5[address] 07 Mar, 2012 [facility] [place] [facility] [address] [id number] [place] [address] Mar, [facility] [address] [facility] [id number] [place] [address] Mar, [facility] [address] [facility] [id number] [address] February, [facility] [address] [facility] [id number] [place] [address] February, IMMUNIZATIONS No Known Immunizations SOCIAL HISTORY Never Assessed REASON FOR VISIT Dental Examination PLAN OF CARE Activity Details Follow Up prn Reason:Filling #15 VITAL SIGNS MEDICATIONS Medication Instructions Dosage Frequency Start Date End Date Duration Status Metoprolol Tartrate 100 mg Orally Once a day 1 tablet 24h Active Duloxetine HCl 60 MG Orally Once a day 1 capsule 24h Active Xanax 1 MG Orally PRN HS 1 tablet Active RESULTS No Results PROCEDURES Procedure Date Ordered Result Body Site COMP ORAL EVALUATION - NEW/EST PT March 31, 2017 INSTRUCTIONS MEDICATIONS ADMINISTERED No Known Medications MEDICAL [...]
--- OUTSIDE RECORDS SUMMARY | 2018-05-24 14:02 | XMS REPORT ---
Author Author LOYDA Almaraz Organization [facility] Address [address] [place] [address] Care Team Providers Care Billing Services Manager Name Role Phone LOYDA Almaraz Unavailable PROBLEMS Type Condition ICD9-CM Code [id number] Code Onset Dates Condition Status SNOMED Code Problem Supervision of other normal V22.1 Active 269400180 Problem Nausea with vomiting 787.01 Active 24544380 Problem Elevated blood pressure reading without diagnosis of hypertension 796.2 Active 712398990 Problem Acute seasonal allergic rhinitis, unspecified trigger J30.2 Active 882706791 Problem Seasonal allergic rhinitis due to other allergic trigger J30.89 Active 264826576 Problem Previous delivery, unspecified as to episode of care or not applicable 654.20 Active 174957295 Problem Unspecified and placental problem affecting management of mother , unspecified as to episode of care 656.90 Active 78636952 Problem Major depressive disorder, recurrent, moderate F33.1 Active 93739650 Problem Generalized anxiety disorder F41.1 Active 71771362 Problem Other procreative management, counseling and advice V26.49 Active 61402620 Problem Unspecified high-risk V23.9 Active 57012550 Problem Encounter for removal of intrauterine contraceptive device V25.12 Active 22750354 Problem Need for prophylactic vaccination and inoculation, Influenza V04.81 Active 839805592 Problem Screening for malignant neoplasm of the cervix V76.2 Active 510109133 Problem 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 [address] [facility] [id number] [address] Jan, Pharyngitis, unspecified etiology J02.9 ; Tonsillitis J03.90 ; Fever R50.9 and BMI 45.0-49.9, adult Z68.42 [facility] [address] [address] Oct, Intractable vomiting with nausea, unspecified vomiting type R11.2 ; Gastroenteritis K52.9 and BMI 45.0-49.9, adult Z68.42 [facility] [address] [place] [address] Aug, Acute seasonal allergic rhinitis, unspecified trigger J30.2 and BMI 45.0-49.9, adult Z68.42 [place] [address] [address] Aug, Dental examination Z01.20 [facility] [address] [place] [address] Aug, BMI 45.0-49.9, adult Z68.42 and Sore throat J02.[address] [address] 14 Jun, 2017 Encounter for immunization Z23 [facility] [address] [address] Apr, Acute seasonal allergic rhinitis due to other allergen J30.89 [facility] [address] [id number] Mar, 2017 Dental examination Z01.20 [facility] [address] [place] [address] February, Dental examination Z01.20 [facility] [address] [place] [address] February, Herpes zoster without complication B02.9 [facility] [address] [place] [address] February, Herpes zoster without complication B02.9 and Acute upper respiratory infection, unspecified J06.9 [facility] [address] [place] [address] Jan, Visit for TB skin test Z11.1 [facility] [address] [place] [id number] [place] [address] 07 Nov, 2016 Encounter for immunization Z23 [facility] [address] [place] [id number] [place] [address] Sep, Seasonal allergic rhinitis due to other allergic trigger J30.89 [facility] [address] [address] Aug, Acute non-recurrent maxillary sinusitis J01.00 and Cough R05 [facility] [address] [place] [address] Jul, Encounter for immunization Z23 [facility] [address] [address] May, Visit for TB skin test Z11.1 [facility] [address] [address] Mar, Insect bite, initial encounter W57.XXXA and Swelling of left hand M79.89 [place] [address] [place] [id number] [place] [address] February, Major depressive disorder, recurrent, moderate F33.1 and Generalized anxiety disorder F41.1 [place] [address] [place] [id number] [place] [address] Jan, Major depressive disorder, recurrent, moderate F33.1 and Generalized anxiety disorder F41.1 [place] [address] [place] [id number] [place] [address] Jan, Major depressive disorder, recurrent, moderate F33.1 and Generalized anxiety disorder F41.1 [place] [address] [place] [id number] [place] [address] Jan, Major depressive disorder, recurrent, moderate F33.1 and Generalized anxiety disorder F41.1 [place] [address] [place] [address] Dec, Major depressive disorder, recurrent, moderate F33.1 and Generalized anxiety disorder F41.1 [facility] [address] [place] [id number] [place] [address] Dec, Major depressive disorder, recurrent, moderate F33.1 and Generalized anxiety disorder F41.1 [facility] [address] [place] [id number] [place] [address] Sep, Upper respiratory symptom R09.89 [facility] [address] [place] [id number] [place] [address] Aug, Major depressive disorder, recurrent, moderate F33.1 and Generalized anxiety disorder F41.1 [facility] [address] [place] [id number] [place] [address] Jul, Encounter for immunization Z23 [facility] [address] [address] Apr, Generalized anxiety disorder 300.02 [facility] [address] [place] [id number] [place] [address] Jan, [facility] [address] [place] [id number] [place] [address] Jan, [facility] [address] [place] [id number] [place] [address] 30 Jun, 2014 [facility] [address] [place] [id number] [place] [address]663- [address] 30 Jun, 2014 [facility] [address] [place] [id number] [place] [address]- [address] Sep, [facility] [address] [place] [id number] [place] [address] Sep, [facility] [address] [place] [id number] [place] [address]- [address] 31 Jul, 2013 [facility] [address] [place] [id number] [place] [address] Jul, [facility] [place] [facility] [address] [id number] [place] [address] Jul, [facility] [place] [facility] [address] [id number] [place] [address] Jul, [facility] [place] [facility] [address] [id number] [place] [address] Jul, [facility] [place] [facility] [address] [id number] [place] [address] Jul, [facility] [place] [facility] [address] [id number] [place] [address] February, [facility] [place] [facility] [address] [id number] [place] [address] Dec, [facility] [place] [facility] [address] [id number] [place] [address] Dec, [facility] [place] [facility] [address] [id number] [place] [address] Dec, [facility] [place] [facility] [address] [id number] [place] [address] 08 Nov, 2012 [facility] [place] [facility] [address] [id number] [place] [address] 80[address] 15 Sep, 2012 [facility] [place] [facility] [address] [id number] [place] [address] 15 Sep, 2012 [facility] [place] [facility] [address] [id number] [place] [address] 14 Sep, 2012 [facility] [place] [facility] [address] [id number] [place] [address] 14 Sep, 2012 [facility] [place] [facility] [address] [id number] [place] [address] 16 Aug, 2012 [facility] [place] [facility] [address] [id number] [place] [address] 16 Aug, 2012 [facility] [place] [facility] [address] [id number] [place] [address] 05 Aug, 2012 [facility] [place] [facility] [address] [id number] [place] [address]- 15[address] 05 Aug, 2012 [facility] [place] [facility] [address] [id number] [place] [address]- 1646 30 Jul, 2012 [facility] [place] [facility] [address] [id number] [place] [address]- 7078 30 Jul, 2012 [facility] [place] [facility] [address] [id number] [place] [address] 0226 19 Jul, 2012 [facility] [place] [facility] [address] [id number] [place] [address], [place] [address] 16 Jul, 2012 [facility] [place] [facility] [address] [id number] [place] [address]- 3[address] 16 Jul, 2012 [facility] [place] [facility] [address] [id number] [place] [address] 15 Jul, 2012 [facility] [place] [facility] [address] [id number] [place] [address] 6408 15 Jul, 2012 [facility] [place] [facility] [address] [id number] [place] [address]- 8098 27 Sep2011 [facility] [place] [facility] [address] [id number] [place] [address]- 46[address] 25 Sep2011 [facility] [place] [facility] [address] [id number] [place] [address]- 2545 24 Sep, 2011 [facility] [place] [facility] [address] [id number] [place] [address]- 2542 21 Sep, 2011 [facility] [place] [facility] [address] [id number] [place] [address]- 2546 17 Sep, 2011 [facility] [place] [facility] [address] [id number] [place] [address]- 2546 13 Sep, 2011 [facility] [place] [facility] [address] [id number] [place] [address]- 2547 Jun, [facility] [place] [facility] [address] [id number] [place] [address]- [address] May, [facility] [place] [facility] [address] [id number] [place] [address]- [address] May, [facility] [place] [facility] [address] [id number] [place] [address]- 2482 May, [facility] [place] [facility] [address] [id number] [place] [address]- 2807 May, [facility] [place] [facility] [address] [id number] [place] [address]- 0161 May, [facility] [place] [facility] [address] [id number] [place] [address]- 0018 May, [facility] [place] [facility] [address] [id number] [place] [address]- 2[address] Apr, [facility] [place] [facility] [address] [id number] [place] [address]- 0780 Apr, [facility] [place] [facility] [address] [id number] [place] [address] Apr, [facility] [place] [facility] [address] [id number] [place] [address] 1984 Apr, [facility] [place] [facility] [address] [id number] [place] [address]- [address]265 Apr, [facility] [place] [facility] [address] [id number] [place] [address]- 5268 Apr, [facility] [place] [facility] [address] [id number] [place] [address]- 115[address] Mar, [facility] [place] [facility] [address] [id number] [place] [address]- 6342 Mar, [facility] [place] [facility] [address] [id number] [place] [address]- 67[address] Mar, [facility] [place] [facility] [address] [id number], [place] [address] Mar, [facility] [address] [id number] [address] Mar, [facility] [address] [place] [id number] [address] Mar, [facility] [address] [address] Mar, [facility] [address] [address] Mar, [facility] [address] [address] February, [facility] [address] [place] [id number] [address] February, IMMUNIZATIONS No Known Immunizations SOCIAL HISTORY Never Assessed REASON FOR VISIT Vomiting Pt states she has been vomiting since yesterday, unable to keep anything down, was seen in ER last night and given Zofran which has not helped CLAUDETTE Herrera PLAN OF CARE Activity Details Follow Up prn Reason: VITAL SIGNS Height 61 in 2017-10-20 Weight 255.6 lbs 2017-10-20 Temperature 97.6 degrees Fahrenheit 2017-10-20 Heart Rate 88 bpm 2017-10-20 Respiratory Rate 20 2017-10-20 BMI 48.29 kg/m2 2017-10-20 Blood pressure systolic 126 mmHg 2017-10-20 Blood pressure diastolic 80 mmHg 2017-10-20 MEDICATIONS Medication Instructions Dosage Frequency Start Date End Date Duration Status ProAir HFA 108 (90 Base) MCG/ACT Inhalation every 4-6 hours as needed 2 puffs as needed Not-Taking Flonase 50 MCG/ACT Nasally Once a day 1 spray in each nostril 24h Aug, 30 day(s) Not-Taking Metoprolol Tartrate 100 mg Orally Once a day 1 tablet 24h Active Duloxetine HCl 60 MG Orally Once a day 1 capsule 24h Active Nasonex 50 MCG/ACT Nasally Once a day 2 sprays in each nostril 24h Sep, 30 day(s) Not-Taking Phentermine HCl 37.5 MG Not-Taking Acyclovir 800 MG Orally Five times a day 1 tablet February, 7 days Not-Taking Promethazine HCl 25 MG Orally every 4-6 hours PRN 1 tablet as needed Oct, Nov, 30 day(s) Active Xanax 1 MG Orally PRN HS 1 tablet Active RESULTS No Results PROCEDURES No Known procedures INSTRUCTIONS MEDICATIONS ADMINISTERED No Known Medications MEDICAL [...]
--- OUTSIDE RECORDS SUMMARY | 2018-05-24 14:02 | XMS REPORT ---
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20 Active 959920693 Problem Unspecified and placental problem affecting management of mother , unspecified as to episode of care 656.90 Active 13902439 Problem Major depressive disorder, recurrent, moderate F33.1 Active 04467159 Problem Generalized anxiety disorder F41.1 Active 20029559 Problem Other procreative management, counseling and advice V26.49 Active 67632773 Problem Unspecified high-risk V23.9 Active 94368906 Problem Encounter for removal of intrauterine contraceptive device V25.12 Active 34490901 Problem Need for prophylactic vaccination and inoculation, Influenza V04.81 Active 459926996 Problem Screening for malignant neoplasm of the cervix V76.2 Active 696366592 Problem 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 Active [id number] ALLERGIES No Information ENCOUNTERS Encounter Location Date Diagnosis [facility] [id number] [place] [address] Jan, Pharyngitis, unspecified etiology J02.9 ; Tonsillitis J03.90 ; Fever R50.9 and BMI 45.0-49.9, adult Z68.42 [facility] [id number] [place] [address] Oct, Intractable vomiting with nausea, unspecified vomiting type R11.2 ; Gastroenteritis K52.9 and BMI 45.0-49.9, adult Z68.42 [facility] [address] [address] Aug, Acute seasonal allergic rhinitis, unspecified trigger J30.2 and BMI 45.0-49.9, adult Z68.[address] [address] Aug, Dental examination Z01.20 [facility] [address] [address] Aug, BMI 45.0-49.9, adult Z68.42 and Sore throat J02.[address] [address] 14 Jun, 2017 Encounter for immunization Z23 [facility] [address] [address] Apr, Acute seasonal allergic rhinitis due to other allergen J30.89 [facility] [address] [id number] 15 Mar, 2017 Dental examination Z01.[address] [address] February, Dental examination Z01.20 [facility] [address] [place] [id number] [place] [address] February, Herpes zoster without complication B02.9 [facility] [address] [address] February, Herpes zoster without complication B02.9 and Acute upper respiratory infection, unspecified J06.9 [facility] [address] [address] Jan, Visit for TB skin test Z11.1 [facility] [id number] [place] [address] 07 Nov, 2016 Encounter for immunization Z23 [facility] [address] [place] [address] Sep, Seasonal allergic rhinitis due to other allergic trigger J30.89 [facility] [address] [place] [address] Aug, Acute non-recurrent maxillary sinusitis J01.00 and Cough R05 [facility] [address] [place] [address] Jul, Encounter for immunization Z23 [facility] [address] [place] [address] May, Visit for TB skin test Z11.1 [facility] [address] [address] Mar, Insect bite, initial encounter W57.XXXA and Swelling of left hand M79.[address] [address] February, Major depressive disorder, recurrent, moderate F33.1 and Generalized anxiety disorder F41.1 [place] [id number] [place] [address] Jan, Major depressive disorder, recurrent, moderate F33.1 and Generalized anxiety disorder F41.1 [place] [id number] [place] [address] Jan, Major depressive disorder, recurrent, moderate F33.1 and Generalized anxiety disorder F41.1 [place] [address] [address] Jan, Major depressive disorder, recurrent, moderate F33.1 and Generalized anxiety disorder F41.1 [place] [address] [address] Dec, Major depressive disorder, recurrent, moderate F33.1 and Generalized anxiety disorder F41.1 [facility] [address] [address] Dec, Major depressive disorder, recurrent, moderate F33.1 and Generalized anxiety disorder F41.1 [facility] [address] [address] Sep, Upper respiratory symptom R09.89 [facility] [id number] [place] [address] Aug, Major depressive disorder, recurrent, moderate F33.1 and Generalized anxiety disorder F41.1 [facility] [id number] [place] [address] Jul, Encounter for immunization Z23 [facility] [id number] [place] [address] Apr, Generalized anxiety disorder 300.02 [facility] [id number] [place] [address] 14 Jan, 2015 [facility] [id number] [place] [address] Jan, [facility] [id number] [place] [address] 30 Jun, 2014 [facility] [address] [address] Jun, [facility] [id number] [place] [address] Sep, [facility] [id number] [place] [address] Sep, [facility] [id number] [place] [address] Jul, [facility] [id number] [place] [address] Jul, [facility] [id number] [place] [address], [place] [address] Jul, [facility] [address] [id number] [place] [address] Jul, [facility] [place] [facility] [address] [id number] [place] [address] Jul, [facility] [place] [facility] [address] [id number] [place] [address] Jul, [facility] [place] [facility] [address] [id number] [place] [address] February, [facility] [place] [facility] [address] [id number] [place] [address] Dec, [facility] [place] [facility] [address] [id number] [place] [address] Dec, [facility] [place] [facility] [address] [id number] [place] [address] Dec, [facility] [place] [facility] [address] [id number] [place] [address] Nov, [facility] [place] [facility] [address] [id number] [place] [address] 15 Sep, 2012 [facility] [place] [facility] [address] [id number] [place] [address] 15 Sep, 2012 [facility] [place] [facility] [address] [id number] [place] [address]- 1646 14 Sep, 2012 [facility] [place] [facility] [address] [id number] [place] [address] 2544 14 Sep, 2012 [facility] [place] [facility] [address] [id number] [place] [address]- 2406 16 Aug, 2012 [facility] [place] [facility] [address] [id number] [place] [address] 2546 16 Aug, 2012 [facility] [place] [facility] [address] [id number] [place] [address]- [address] 05 Aug, 2012 [facility] [place] [facility] [address] [id number] [place] [address]- 5469 05 Aug, 2012 [facility] [place] [facility] [address] [id number] [place] [address]- 2860 30 Jul, 2012 [facility] [place] [facility] [address] [id number] [place] [address]- 06[address] 30 Jul, 2012 [facility] [place] [facility] [address] [id number] [place] [address] 19 Jul, 2012 [facility] [place] [facility] [address] [id number] [place] [address]- 3628 16 Jul, 2012 [facility] [place] [facility] [address] [id number] [place] [address]- 3467 16 Jul, 2012 [facility] [place] [facility] [address] [id number] [place] [address]- 66[address] 15 Jul, 2012 [facility] [place] [facility] [address] [id number] [place] [address] 15 Jul, 2012 [facility] [place] [facility] [address] [id number] [place] [address]- 3694 27 Sep2011 [facility] [place] [facility] [address] [id number] [place] [address] 9725 25 Sep2011 [facility] [place] [facility] [address] [id number] [place] [address]- 6846 24 Sep2011 [facility] [place] [facility] [address] [id number] [place] [address]- 2541 21 Sep2011 [facility] [place] [facility] [address] [id number] [place] [address]- 2541 17 Sep2011 [facility] [place] [facility] [address] [id number] [place] [address]- 2549 13 Sep2011 [facility] [place] [facility] [address] [id number] [place] [address]- 2426 11 Sep2011 [facility] [place] [facility] [address] [id number] [place] [address]- 16[address] May, [facility] [place] [facility] [address] [id number] [place] [address]- [address] May, [facility] [place] [facility] [address] [id number] [place] [address]- 8190 May, [facility] [place] [facility] [address] [id number] [place] [address]- 3916 May, [facility] [place] [facility] [address] [id number] [place] [address]- 0069 May, [facility] [place] [facility] [address] [id number] [place] [address]- 8832 May, [facility] [place] [facility] [address] [id number] [place] [address]- 2819 Apr, [facility] [place] [facility] [address] [id number] [place] [address]- 5167 Apr, [facility] [place] [facility] [address] [id number] [place] [address]- [address] Apr, [facility] [place] [facility] [address] [id number] [place] [address]- 4666 Apr, [facility] [place] [facility] [address] [id number] [place] [address]- 3728 Apr, [facility] [place] [facility] [address] [id number] [place] [address]- 4943 Apr, [facility] [place] [facility] [address] [id number] [place] [address]- 0913 Mar, [facility] [place] [facility] [address] [id number] [place] [address]- 1264 Mar, [facility] [place] [facility] [address] [id number] [place] [address]- [address]990 Mar, [facility] [place] [facility] [address] [id number] [place] [address]- 3605 Mar, [facility] [place] [facility] [address] [facility] [id number] [address] Mar, [facility] [id number] [address] Mar, [facility] [id number] [address] Mar, [facility] [id number] [address] Mar, [facility] [id number] [address] February, [facility] [id number] [address] February, IMMUNIZATIONS No Known Immunizations SOCIAL HISTORY Never Assessed REASON FOR VISIT Dental Hygiene Recare PLAN OF CARE VITAL SIGNS MEDICATIONS No Known Medications RESULTS No Results PROCEDURES Procedure Date Ordered Result Body Site Billing Notes on claim Sep 12, 2017 INSTRUCTIONS MEDICATIONS ADMINISTERED No Known Medications MEDICAL (GENERAL) HISTORY Type Description Date Medical History hypertension Medical History anxiety Medical History Shingles Surgical History section Surgical History tubal ligation Surgical History cholecystectomy Surgical History tonsilectomy Surgical History pinkie surgery Hospitalization History chest pain 2013 Hospitalization History Surgery(s)/Childbirth(s) Hospitalization History dehydration 2010 Hospitalization History pneumonia Hospitalization History Shingles February 2017
--- OUTSIDE RECORDS SUMMARY | 2018-05-24 14:03 | XMS REPORT ---
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 [employer] Name Role Phone STACIE AMADOR Unavailable PROBLEMS Type Condition ICD9-CM Code WCG92-AH Code Onset Dates Condition Status SNOMED Code Problem Supervision of other normal V22.1 Active 379504248 Problem Nausea with vomiting 787.01 Active 42482912 Problem Elevated blood pressure reading without diagnosis of hypertension 796.2 Active 905412233 Problem Acute seasonal allergic rhinitis, unspecified trigger J30.2 Active 556460886 Problem Seasonal allergic rhinitis due to other allergic trigger J30.89 Active 238887556 Problem Previous delivery, unspecified as to episode of care or not applicable 654.20 Active 791291230 Problem Unspecified and placental problem affecting management of mother , unspecified as to episode of care 656.90 Active 93720251 Problem Major depressive disorder, recurrent, moderate F33.1 Active 23733552 Problem Generalized anxiety disorder F41.1 Active 25080898 Problem Other procreative management, counseling and advice V26.49 Active 15255916 Problem Unspecified high-risk V23.9 Active 37436159 Problem Encounter for removal of intrauterine contraceptive device V25.12 Active 04944390 Problem Need for prophylactic vaccination and inoculation, Influenza V04.81 Active 105264006 Problem Screening for malignant neoplasm of the cervix V76.2 Active 951224283 Problem 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 Active [id number] ALLERGIES No Information ENCOUNTERS Encounter Location Date Diagnosis [facility] [address], [place] [address] Jan, Pharyngitis, unspecified etiology J02.9 ; Tonsillitis J03.90 ; Fever R50.9 and BMI 45.0-49.9, adult Z68.42 [facility] [address] [place] [address] Oct, Intractable vomiting with nausea, unspecified vomiting type R11.2 ; Gastroenteritis K52.9 and BMI 45.0-49.9, adult Z68.42 [facility] [address] [address] Aug, Acute seasonal allergic rhinitis, unspecified trigger J30.2 and BMI 45.0-49.9, adult Z68.[address] [address] Aug, Dental examination Z01.20 [facility] [address] [address] Aug, BMI 45.0-49.9, adult Z68.42 and Sore throat J02.[address] [address] 14 Jun, 2017 Encounter for immunization Z23 [facility] [address] [address] Apr, Acute seasonal allergic rhinitis due to other allergen J30.89 [facility] [address] [id number] Mar, 2017 Dental examination Z01.[address] [address] February, Dental examination Z01.20 [facility] [address] [place] [id number] [place] [address] February, Herpes zoster without complication B02.9 [facility] [address] [address] February, Herpes zoster without complication B02.9 and Acute upper respiratory infection, unspecified J06.9 [facility] [address] [address] Jan, Visit for TB skin test Z11.1 [facility] [id number] [place] [address] 07 Nov, 2016 Encounter for immunization Z23 [facility] [address] [place] [address] Sep, Seasonal allergic rhinitis due to other allergic trigger J30.89 [facility] [address] [place] [address] Aug, Acute non-recurrent maxillary sinusitis J01.00 and Cough R05 [facility] [address] [place] [address] Jul, Encounter for immunization Z23 [facility] [address] [place] [address] May, Visit for TB skin test Z11.1 [facility] [address] [address] Mar, Insect bite, initial encounter W57.XXXA and Swelling of left hand M79.[address] [address] February, Major depressive disorder, recurrent, moderate F33.1 and Generalized anxiety disorder F41.1 [place] [id number] [place] [address] Jan, Major depressive disorder, recurrent, moderate F33.1 and Generalized anxiety disorder F41.1 [place] [id number] [place] [address] Jan, Major depressive disorder, recurrent, moderate F33.1 and Generalized anxiety disorder F41.1 [place] [address] [address] Jan, Major depressive disorder, recurrent, moderate F33.1 and Generalized anxiety disorder F41.1 [place] [address] [address] Dec, Major depressive disorder, recurrent, moderate F33.1 and Generalized anxiety disorder F41.1 [facility] [address], [place] [address] Dec, Major depressive disorder, recurrent, moderate F33.1 and Generalized anxiety disorder F41.1 [facility] [address], [place] [address] Sep, Upper respiratory symptom R09.89 [facility] [id number] [place] [address] Aug, Major depressive disorder, recurrent, moderate F33.1 and Generalized anxiety disorder F41.1 [facility] [id number] [place] [address] Jul, Encounter for immunization Z23 [facility] [id number] [place] [address] Apr, Generalized anxiety disorder 300.02 [facility] [id number] [place] [address] 14 Jan, 2015 [facility] [id number] [place] [address] Jan, [facility] [id number] [place] [address] 30 Jun, 2014 [facility] [address], [place] [address] Jun, [facility] [id number] [place] [address] Sep, [facility] [id number] [place] [address] Sep, [facility] [id number] [place] [address] Jul, [facility] [id number] [place] [address] Jul, [facility] [id number] [place] [address], [place] [address] Jul, [facility] [address] [id number] [place] [address] Jul, [facility] [place] [facility] [address] [id number] [place] [address] Jul, [facility] [place] [facility] [address] [id number] [place] [address] Jul, [facility] [place] [facility] [address] [id number] [place] [address] February, [facility] [place] [facility] [address] [id number] [place] [address] Dec, [facility] [place] [facility] [address] [id number] [place] [address] Dec, [facility] [place] [facility] [address] [id number] [place] [address] Dec, [facility] [place] [facility] [address] [id number] [place] [address] Nov, [facility] [place] [facility] [address] [id number] [place] [address] 15 Sep, 2012 [facility] [place] [facility] [address] [id number] [place] [address] 15 Sep, 2012 [facility] [place] [facility] [address] [id number] [place] [address] 14 Sep, 2012 [facility] [place] [facility] [address] [id number] [place] [address] 14 Sep, 2012 [facility] [place] [facility] [address] [id number] [place] [address] 16 Aug, 2012 [facility] [place] [facility] [address] [id number] [place] [address] 16 Aug, 2012 [facility] [place] [facility] [address] [id number] [place] [address] 05 Aug, 2012 [facility] [place] [facility] [address] [id number] [place] [address] 279[address] 05 Aug, 2012 [facility] [place] [facility] [address] [id number] [place] [address] 30 Jul, 2012 [facility] [place] [facility] [address] [id number] [place] [address] 30 Jul, 2012 [facility] [place] [facility] [address] [id number] [place] [address] 19 Jul, 2012 [facility] [place] [facility] [address] [id number] [place] [address]- 0[address] 16 Jul, 2012 [facility] [place] [facility] [address] [id number] [place] [address]- 79[address] 16 Jul, 2012 [facility] [place] [facility] [address] [id number] [place] [address] 4758 15 Jul, 2012 [facility] [place] [facility] [address] [id number] [place] [address] 15 Jul, 2012 [facility] [place] [facility] [address] [id number] [place] [address] 30[address] 27 Sep2011 [facility] [place] [facility] [address] [id number] [place] [address]- 0[address] 25 Sep2011 [facility] [place] [facility] [address] [id number] [place] [address]- 0125 24 Sep2011 [facility] [place] [facility] [address] [id number] [place] [address]- 2549 21 Sep2011 [facility] [place] [facility] [address] [id number] [place] [address]- 2544 17 Sep2011 [facility] [place] [facility] [address] [id number] [place] [address]- 2542 13 Sep2011 [facility] [place] [facility] [address] [id number] [place] [address]- 6844 11 Sep2011 [facility] [place] [facility] [address] [id number] [place] [address] May, [facility] [place] [facility] [address] [id number] [place] [address] 8[address] May, [facility] [place] [facility] [address] [id number] [place] [address]- [address] May, [facility] [place] [facility] [address] [id number] [place] [address] May, [facility] [place] [facility] [address] [id number] [place] [address]- 2760 May, [facility] [place] [facility] [address] [id number] [place] [address]- [address] May, [facility] [place] [facility] [address] [id number] [place] [address]- 12[address] Apr, [facility] [place] [facility] [address] [id number] [place] [address]- 66[address] Apr, [facility] [place] [facility] [address] [id number] [place] [address]- 69[address] Apr, [facility] [place] [facility] [address] [id number] [place] [address]- 14[address] Apr, [facility] [place] [facility] [address] [id number] [place] [address]- 6763 Apr, [facility] [place] [facility] [address] [id number] [place] [address] Apr, [facility] [place] [facility] [address] [id number] [place] [address] Mar, [facility] [place] [facility] [address] [id number] [place] [address]- [address] Mar, [facility] [place] [facility] [address] [id number] [place] [address]- 20[address] Mar, [facility] [place] [facility] [address] [id number] [place] [address] 119[address] Mar, [facility] [place] [facility] [address] [facility] [id number] [place] [address] Mar, [facility] [id number] [id number] Mar, [facility] [id number] [address] Mar, [facility] [id number] [address] Mar, [facility] [id number] [address] February, [facility] [id number] [address] February, IMMUNIZATIONS Vaccine Route Administration Date Status FLUARIX QUAD (3 AND UP) 2016 IM Intramuscular Jun 30, 2017 Administered SOCIAL HISTORY Never Assessed REASON FOR VISIT Flu shot JjournotRN PLAN OF CARE VITAL SIGNS MEDICATIONS No Known Medications RESULTS No Results PROCEDURES Procedure Date Ordered Result Body Site FLUARIX QUAD (3 & UP)-[id number] 30, 2017 SINGLE IMMUNIZATION ADMIN Jun 30, 2017 INSTRUCTIONS MEDICATIONS ADMINISTERED No Known Medications [...]
--- OUTSIDE RECORDS SUMMARY | 2018-05-24 14:03 | XMS REPORT ---
Author Author BEN SMALL Organization [facility] Address [address] [place] [address] Care Team Providers Care Supervisor [employer] Name Role Phone BEN SMALL Unavailable PROBLEMS Type Condition ICD9-CM Code RNX61-OA Code Onset Dates Condition Status SNOMED Code Problem Supervision of other normal V22.1 Active 388566286 Problem Nausea with vomiting 787.01 Active 94998164 Problem Elevated blood pressure reading without diagnosis of hypertension 796.2 Active 215453878 Problem Acute seasonal allergic rhinitis, unspecified trigger J30.2 Active 877780462 Problem Seasonal allergic rhinitis due to other allergic trigger J30.89 Active 936423197 Problem Previous delivery, unspecified as to episode of care or not applicable 654.20 Active 788526344 Problem Unspecified and placental problem affecting management of mother , unspecified as to episode of care 656.90 Active 72261964 Problem Major depressive disorder, recurrent, moderate F33.1 Active 96052114 Problem Generalized anxiety disorder F41.1 Active 22484032 Problem Other procreative management, counseling and advice V26.49 Active 38979810 Problem Unspecified high-risk V23.9 Active 33712277 Problem Encounter for removal of intrauterine contraceptive device V25.12 Active 19684645 Problem Need for prophylactic vaccination and inoculation, Influenza V04.81 Active 485152820 Problem Screening for malignant neoplasm of the cervix V76.2 Active 565177272 Problem 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 Active [id number] ALLERGIES Substance Reaction Event Type Date Status Codeine Unknown Drug Allergy Aug, Active ENCOUNTERS Encounter Location Date Diagnosis [facility] [address] [facility] [id number] [address] Jan, Pharyngitis, unspecified etiology J02.9 ; Tonsillitis J03.90 ; Fever R50.9 and BMI 45.0-49.9, adult Z68.42 [facility] [id number] [place] [address] Oct, Intractable vomiting with nausea, unspecified vomiting type R11.2 ; Gastroenteritis K52.9 and BMI 45.0-49.9, adult Z68.42 [facility] [address] [address] Aug, Acute seasonal allergic rhinitis, unspecified trigger J30.2 and BMI 45.0-49.9, adult Z68.42 [facility] [address] [address] Aug, Dental examination Z01.20 [facility] [address] [place] [address] Aug, BMI 45.0-49.9, adult Z68.42 and Sore throat J02.9 [facility] [address] [place] [address] 14 Jun, 2017 Encounter for immunization Z23 [facility] [address] [address] 05 Apr, 2017 Acute seasonal allergic rhinitis due to other allergen J30.89 [facility] [address] [id number] Mar, 2017 Dental examination Z01.20 [facility] [address] [address] February, Dental examination Z01.20 [facility] [address] [place] [address] February, Herpes zoster without complication B02.9 [facility] [address] [place] [address] February, Herpes zoster without complication B02.9 and Acute upper respiratory infection, unspecified J06.9 [facility] [address] [address] Jan, Visit for TB skin test Z11.1 [facility] [id number] [place] [address] Nov, Encounter for immunization Z23 [facility] [id number] [place] [address] Sep, Seasonal allergic rhinitis due to other allergic trigger J30.89 [facility] [address] [place] [address] Aug, Acute non-recurrent maxillary sinusitis J01.00 and Cough R05 [facility] [address] [place] [address] Jul, Encounter for immunization Z23 [facility] [address] [place] [address] May, Visit for TB skin test Z11.1 [facility] [address] [place] [address] Mar, Insect bite, initial encounter W57.XXXA and Swelling of left hand M79.[address] [address] February, Major depressive disorder, recurrent, moderate F33.1 and Generalized anxiety disorder F41.1 [place] [id number] [place] [address] Jan, Major depressive disorder, recurrent, moderate F33.1 and Generalized anxiety disorder F41.1 [facility] [id number] [place] [address] Jan, Major depressive disorder, recurrent, moderate F33.1 and Generalized anxiety disorder F41.1 [place] [facility] [id number] [place] [address] Jan, Major depressive disorder, recurrent, moderate F33.1 and Generalized anxiety disorder F41.1 [place] [address] [address] Dec, Major depressive disorder, recurrent, moderate F33.1 and Generalized anxiety disorder F41.1 [facility] [id number] [place] [address] Dec, Major depressive disorder, recurrent, moderate F33.1 and Generalized anxiety disorder F41.1 [facility] [id number] [place] [address] Sep, Upper respiratory symptom R09.89 [facility] [id number] [place] [address] Aug, Major depressive disorder, recurrent, moderate F33.1 and Generalized anxiety disorder F41.1 [facility] [id number] [place] [address] Jul, Encounter for immunization Z23 [facility] [id number] [place] [address] Apr, Generalized anxiety disorder 300.02 [facility] [id number] [place] [address] 14 Jan, 2015 [facility] [id number] [place] [address] Jan, [facility] [id number] [place] [address] 13603- 2665 30 Jun, 2014 [facility] [id number] [place] [address]39- [address] 30 Jun, 2014 [facility] [id number] [place] [address] 58[address] Sep, [facility] [id number] [place] [address]- [address] Sep, [facility] [id number] [place] [address] 9[address] Jul, [facility] [id number] [place] [address] Jul, [facility] [address] [id number] [place] [address] Jul, [facility] [place] [facility] [address] [id number] [place] [address] Jul, [facility] [place] [facility] [address] [id number] [place] [address] Jul, [facility] [place] [facility] [address] [id number] [place] [address] Jul, [facility] [place] [facility] [address] [id number] [place] February, [facility] [place] [facility] [address] [id number] [place] [address] Dec, [facility] [place] [facility] [address] [id number] [place] [address] Dec, [facility] [place] [facility] [address] [id number] [place] [address] Dec, [facility] [place] [facility] [address] [id number] [place] [address] Nov, [facility] [place] [facility] [address] [id number] [place] [address] 15 Sep, 2012 [facility] [place] [facility] [address] [id number] [place] [address] 15 Sep, 2012 [facility] [place] [facility] [address] [id number] [place] [address] 164[address] 14 Sep, 2012 [facility] [place] [facility] [address] [id number] [place] [address] 14 Sep, 2012 [facility] [place] [facility] [address] [id number] [place] [address] 20[address] 16 Aug, 2012 [facility] [place] [facility] [address] [id number] [place] [address] 5164 16 Aug, 2012 [facility] [place] [facility] [address] [id number] [place] [address] 6[address] 05 Aug, 2012 [facility] [place] [facility] [address] [id number] [place] [address] 0[address] 05 Aug, 2012 [facility] [place] [facility] [address] [id number] [place] [address] 60[address] 30 Jul, 2012 [facility] [place] [facility] [address] [id number] [place] [address] 9266 30 Jul, 2012 [facility] [place] [facility] [address] [id number] [place] [address] 4474 19 Jul, 2012 [facility] [place] [facility] [address] [id number] [place] [address], [place] [address] 16 Jul, 2012 [facility] [place] [facility] [address] [id number] [place] [address] 9279 16 Jul, 2012 [facility] [place] [facility] [address] [id number] [place] [address] 6[address] 15 Jul, 2012 [facility] [place] [facility] [address] [id number] [place] [address] 477[address] 15 Jul, 2012 [facility] [place] [facility] [address] [id number] [place] [address] 48[address] 27 Sep2011 [facility] [place] [facility] [address] [id number] [place] [address] 6[address] 25 Sep, 2011 [facility] [place] [facility] [address] [id number] [place] [address]- 1167 24 Sep, 2011 [facility] [place] [facility] [address] [id number] [address] 21 Sep, 2011 [facility] [place] [facility] [address] [id number] [place] [address]- 6993 17 Sep, 2011 [facility] [place] [facility] [address] [id number] [place] [address]- 2546 13 Sep, 2011 [facility] [place] [facility] [address] [id number] [place] [address]- 67[address] 11 Sep, 2011 [facility] [place] [facility] [address] [id number] [place] [address]- 2962 30 May, 2012 [facility] [place] [facility] [address] [id number] [place] [address]- [address] May, [facility] [place] [facility] [address] [id number] [place] [address] 2546 May, [facility] [place] [facility] [address] [id number] [place] [address] 2546 15 May, 2012 [facility] [place] [facility] [address] [id number] [place] [address] 2546 May, [facility] [place] [facility] [address] [id number] [place] [address] 89[address] May, [facility] [place] [facility] [address] [id number] [place] [address]- 6063 Apr, [facility] [place] [facility] [address] [id number] [place] [address]- 6[address] Apr, [facility] [place] [facility] [address] [id number] [place] [address]- 7408 Apr, [facility] [place] [facility] [address] [id number] [place] [address]- 3090 Apr, [facility] [place] [facility] [address] [id number] [place] [address]- 1471 Apr, [facility] [place] [facility] [address] [id number] [place] [address]- 2547 Apr, [facility] [place] [facility] [address] [id number] [place] [address] 2549 Mar, [facility] [place] [facility] [address] [id number] [place] [address] 2546 Mar, [facility] [place] [facility] [address] [id number] [place] [address] 254 Mar, [facility] [place] [facility] [address] [id number] [place] [address] 8[address] Mar, [facility] [address] [facility] [id number][place] [address] Mar, [facility] [address] [facility] [id number] [address] Mar, [facility] [address] [facility] [id number], [place] [address] Mar, [facility] [address] [facility] [id number], [place] [address] Mar, [facility] [address] [facility] [id number], [place] [address] February, [facility] [address] [facility] [id number][place] [address] February, IMMUNIZATIONS Vaccine Route Administration Date Status DEXAMETHASONE 4MG/ML (PER 1 MG) IM Intramuscular Sep 13, 2017 Administered DEPO MEDROL 40 MG/ML IM Intramuscular Sep 13, 2017 Administered SOCIAL HISTORY Never Assessed REASON FOR VISIT Congestion, cough, sob walking across living room [id number] PLAN OF CARE Activity Details Follow Up prn Reason: VITAL SIGNS Height 61 in 2017-09-13 Weight 252 lbs 2017-09-13 Temperature 97.1 degrees Fahrenheit 2017-09-13 Heart Rate 82 bpm 2017-09-13 Respiratory Rate 22 2017-09-13 BMI 47.61 kg/m2 2017-09-13 Blood pressure systolic 122 mmHg 2017-09-13 Blood pressure diastolic 80 mmHg 2017-09-13 MEDICATIONS Medication Instructions Dosage Frequency Start Date End Date Duration Status Cetirizine HCl 10 mg Orally Once a day 1 tablet 24h Apr, Sep, 30 day(s) Active ProAir HFA 108 (90 Base) MCG/ACT Inhalation every 4-6 hours as needed 2 puffs as needed Not-Taking Xanax 1 MG Orally PRN HS 1 tablet Active Nasonex 50 MCG/ACT Nasally Once a day 2 sprays in each nostril 24h Sep, 30 day(s) Not-Taking Duloxetine HCl 60 MG Orally Once a day 1 capsule 24h Active Zyrtec Allergy 10 MG Orally Once a day 1 tablet 24h Aug, Sep, 30 day(s) Active Flonase 50 MCG/ACT Nasally Once a day 1 spray in each nostril 24h Aug, 30 day(s) Active Metoprolol Tartrate 100 mg Orally Once a day 1 tablet 24h Active Acyclovir 800 MG Orally Five times a day 1 tablet February, 7 days Not-Taking Phentermine HCl 37.5 MG Not-Taking RESULTS No Results PROCEDURES Procedure Date Ordered Result Body Site DEPO MEDROL 40 MG/ML Sep 13, 2017 DEXAMETHASONE 4MG/ML (PER 1 MG) Sep 13, 2017 THER/PROPH/DIAG INJ, SC/IM Sep 13, 2017 INSTRUCTIONS MEDICATIONS ADMINISTERED No Known Medications [...]
--- OUTSIDE RECORDS SUMMARY | 2018-05-24 14:08 | XMS REPORT | Continuity of Care Document ---
Author Author [facility] Address Unknown Phone Unavailable Allergies Active Description Code Type Severity Reaction Onset Reported/Identified Relationship to Patient Clinical Status Yes codeine [id number] Drug Allergy Mild N/A 05/29/2011 Yes Codeine [...] DO, CAROLINA Ot F32.9 11/10/2015 CARRASCO DO, CRAOLINA Ot F41.9 11/10/2015 CARRASCO DO, CAROLINA Ot [...] 01/20/2016 SHAWNA ERAZO, MAYA Ot 574.20 01/20/2016 SHAWNA ERAZO, MAYA Ot V72.83 01/20/2016 SHAWNA ERAZO, MAYA Ot V74.8 02/27/2017 Ot I10 ESSENTIAL ( PRIMARY) HYPERTENSION 02/27/2017 Ot J40 BRONCHITIS, NOT SPECIFIED ACUTE OR CH 02/27/2017 Ot R05 COUGH 02/27/2017 Ot R50.9 FEVER, UNSPECIFIED 02/27/2017 Ot Z79.899 OTHER [employer] AIR CONDITIONING (CURRENT) DRUG THERAPY 03/05/2017 Ot I10 ESSENTIAL ( PRIMARY) HYPERTENSION 03/05/2017 Ot J40 BRONCHITIS, NOT SPECIFIED ACUTE OR CH 03/05/2017 Ot R05 COUGH 03/05/2017 Ot R50.9 FEVER, UNSPECIFIED 03/05/2017 Ot Z79.899 OTHER PENITENTIARY (CURRENT) DRUG THERAPY 03/19/2017 GENA CHAPPELL MD Ot I10 ESSENTIAL (PRIMARY) HYPERTENSION 03/19/2017 GENA CHAPPELL MD Ot K52.9 NONINFECTIVE GASTROENTERITIS AND COLITIS 03/19/2017 GENA CHAPPELL MD Ot R11.2 NAUSEA WITH VOMITING, UNSPECIFIED 10/19/2017 GAY ERAZO, CHRISTOPHER Kimball Ot F32.9 MAJOR DEPRESSIVE DISORDER, SINGLE EPISOD 10/19/2017 GAY ERAZO, CHRISTOPHER Kimball Ot F41.9 ANXIETY DISORDER, UNSPECIFIED 10/19/2017 GAY ERAZO, CHRISTOPHER Kimball Ot G47.9 SLEEP DISORDER, UNSPECIFIED 10/19/2017 GAY ERAZO, CHRISTOPHER Kimball Ot I10 ESSENTIAL (PRIMARY) HYPERTENSION 10/19/2017 GAY ERAZO, CHRISTOPHER Kimball Ot J11.1 FLU DUE TO UNIDENTIFIED INFLUENZA VIRUS 10/19/2017 GAY ERAZO, CHRISTOPHER Kimball Ot R05 COUGH 10/19/2017 GAY ERAZO, CHRISTOPHER Kimball Ot R11.0 NAUSEA 10/19/2017 GAY ERAZO, CHRISTOPHER Kimball Ot R19.7 DIARRHEA, UNSPECIFIED 10/19/2017 GAY ERAZO, CHRISTOPHER Kimball Ot Z87.81 PERSONAL HISTORY OF (HEALED) TRAUMATIC F 10/19/2017 GAY ERAZO, CHRISTOPHER Kimball Ot Z90.49 ACQUIRED ABSENCE OF OTHER SPECIFIED PART 10/19/2017 CHRISTOPHER RASHID MD Ot Z90.89 ACQUIRED ABSENCE OF OTHER ORGANS 10/19/2017 GAY ERAZO, CHRISTOPHER Kimball Ot Z98.51 TUBAL LIGATION STATUS 12/03/2017 AARON, LEIDY SENIOR [employer]ACLE APPLICATIONS DEVELOPER Ot F32.9 MAJOR DEPRESSIVE DISORDER, SINGLE EPISOD 12/03/2017 AARON, LEIDY SENIOR [employer]ACLE APPLICATIONS DEVELOPER Ot F41.9 ANXIETY DISORDER, UNSPECIFIED 12/03/2017 AARON, LEIDY SENIOR [employer]ACLE APPLICATIONS DEVELOPER Ot G47.00 INSOMNIA, UNSPECIFIED 12/03/2017 AARON, LEIDY SENIOR [employer]ACLE APPLICATIONS DEVELOPER Ot I10 ESSENTIAL (PRIMARY) HYPERTENSION 12/03/2017 AARON, LEIDY SENIOR [employer]ACLE APPLICATIONS DEVELOPER Ot R11.2 NAUSEA WITH VOMITING, UNSPECIFIED 12/03/2017 AARON, LEIDY SENIOR [employer]ACLE APPLICATIONS DEVELOPER Ot R19.7 DIARRHEA, UNSPECIFIED 12/03/2017 AARON, LEIDY SENIOR [employer]ACLE APPLICATIONS DEVELOPER Ot Z87.59 PERSONAL HISTORY OF COMP OF PREG, CHLDBR 12/03/2017 AARON, LEIDY SENIOR [employer]ACLE APPLICATIONS DEVELOPER Ot Z87.81 PERSONAL HISTORY OF (HEALED) TRAUMATIC F 12/03/2017 AARON, LEIDY SENIOR [employer]AC[employer] APPLICATIONS DEVELOPER Ot Z88.5 ALLERGY STATUS TO NARCOTIC AGENT STATUS 12/03/2017 AARON, LEIDY SENIOR [employer]ACLE APPLICATIONS DEVELOPER Ot Z90.89 ACQUIRED ABSENCE OF OTHER ORGANS 12/03/2017 AARON, LEIDY SENIOR [employer]ACLE APPLICATIONS DEVELOPER Ot Z98.51 TUBAL LIGATION STATUS 12/05/2017 AARON, LEIDY SENIOR [employer]ACLE APPLICATIONS DEVELOPER Ot F32.9 MAJOR DEPRESSIVE DISORDER, SINGLE EPISOD 12/05/2017 AARON, LEIDY SENIOR [employer]AC[employer] APPLICATIONS DEVELOPER Ot F41.9 ANXIETY DISORDER, UNSPECIFIED 12/05/2017 AARON, LEIDY SENIOR [employer]ACLE APPLICATIONS DEVELOPER Ot G47.00 INSOMNIA, UNSPECIFIED 12/05/2017 AARON, LEIDY SENIOR [employer]ACLE APPLICATIONS DEVELOPER Ot I10 ESSENTIAL (PRIMARY) HYPERTENSION 12/05/2017 AARON, LEIDY SENIOR [employer]ACLE APPLICATIONS DEVELOPER Ot R11.2 NAUSEA WITH VOMITING, UNSPECIFIED 12/05/2017 AARON, LEIDY SENIOR [employer]ACLE APPLICATIONS DEVELOPER Ot R19.7 DIARRHEA, UNSPECIFIED 12/05/2017 AARON, LEIDY SENIOR [employer]ACLE APPLICATIONS DEVELOPER Ot Z87.59 PERSONAL HISTORY OF COMP OF PREG, CHLDBR 12/05/2017 AARON, LEIDY SENIOR [employer]ACLE APPLICATIONS DEVELOPER Ot Z87.81 PERSONAL HISTORY OF (HEALED) TRAUMATIC F 12/05/2017 AARON, LEIDY SENIOR [employer]ACLE APPLICATIONS DEVELOPER Ot Z88.5 ALLERGY STATUS TO NARCOTIC AGENT STATUS 12/05/2017 AARON, LEIDY SENIOR [employer]ACLE APPLICATIONS DEVELOPER Ot Z90.89 ACQUIRED ABSENCE OF OTHER ORGANS 12/05/2017 AARON, LEIDY SENIOR [employer]ACLE APPLICATIONS DEVELOPER Ot Z98.51 TUBAL LIGATION STATUS 12/09/2017 AARON, LEIDY SENIOR [employer]AC[employer] APPLICATIONS DEVELOPER Ot F32.9 MAJOR DEPRESSIVE DISORDER, SINGLE EPISOD 12/09/2017 AARON, LEIDY SENIOR [employer]AC[employer] APPLICATIONS DEVELOPER Ot F41.9 ANXIETY DISORDER, UNSPECIFIED 12/09/2017 AARON, LEIDY SENIOR [employer]AC[employer] APPLICATIONS DEVELOPER Ot G47.00 INSOMNIA, UNSPECIFIED 12/09/2017 AARON, LEIDY SENIOR [employer] APPLICATIONS DEVELOPER Ot I10 ESSENTIAL (PRIMARY) HYPERTENSION 12/09/2017 AARON, LEIDY SENIOR [employer]ACLE APPLICATIONS DEVELOPER Ot R11.2 NAUSEA WITH VOMITING, UNSPECIFIED 12/09/2017 AARON, LEIDY SENIOR [employer]ACLE APPLICATIONS DEVELOPER Ot R19.7 DIARRHEA, UNSPECIFIED 12/09/2017 AARON, LEIDY SENIOR [employer]ACLE APPLICATIONS DEVELOPER Ot Z87.59 PERSONAL HISTORY OF COMP OF PREG, CHLDBR 12/09/2017 AARON, LEIDY SENIOR [employer]AC[employer] APPLICATIONS DEVELOPER Ot Z87.81 PERSONAL HISTORY OF (HEALED) TRAUMATIC F 12/09/2017 AARON, LEIDY SENIOR [employer]ACLE APPLICATIONS DEVELOPER Ot Z88.5 ALLERGY STATUS TO NARCOTIC AGENT STATUS 12/09/2017 AARON, LEIDY SENIOR [employer]ACLE APPLICATIONS DEVELOPER Ot Z90.89 ACQUIRED ABSENCE OF OTHER ORGANS 12/09/2017 AARON, LEIDY SENIOR [employer]ACLE APPLICATIONS DEVELOPER Ot Z98.51 TUBAL LIGATION STATUS Procedures Code [place] [address] ROUTINE VENIPUNCTURE 07/31/2012 48217 UA OB DIP 07/31/2012 21834 CBC 07/31/2012 62804 GLUCOSE ELVIRA 1 HOUR 07/31/2012 54175 CMP 07/31/2012 0258124 GFR CALC (RESULT ONLY) 07/31/2012 75499 LDH 08/01/2012 10600 URIC ACID 08/01/2012 65792 URINE PROTEIN 08/01/2012 Esme Muller 08/01/2012 01528 URINE CREATININE (RANDOM) 08/04/2012 28110 PSYTX PT&/FAMILY 45 MINUTES 11/24/2012 99131 PSYTX PT&/FAMILY 45 MINUTES 01/09/2013 24781 PSYTX PT&/FAMILY 45 MINUTES 08/03/2013 Results Test [...] FOR INFLUENZA A AND B ANTIGENS BY AK NR Complete blood count (CBC) with automated white blood cell (WBC) differential - 12/03/17 16:20 Blood leukocytes automated count (number/volume) 10.1 10*3/uL 4.3-11.0 Blood erythrocytes automated count (number/volume) 4.98 10*6/uL 4.35-5.85 Venous blood hemoglobin measurement (mass/volume) 14.2 g/dL 11.5-16.0 Blood hematocrit (volume fraction) 42 % 35-52 Automated erythrocyte mean corpuscular volume 84 [foz_us] 80-99 Automated erythrocyte mean corpuscular hemoglobin (mass per erythrocyte) 29 pg 25-34 Automated erythrocyte mean corpuscular hemoglobin concentration measurement ( mass/volume) 34 g/dL 32-36 Automated erythrocyte distribution width ratio 13.5 % 10.0-14.5 Automated blood platelet count (count/volume) 313 10*3/uL 130-400 Automated blood platelet mean volume measurement 9.4 [foz_us] 7.4-10.4 Automated blood neutrophils/100 leukocytes 71 % 42-75 Automated blood lymphocytes/100 leukocytes 20 % 12-44 Blood monocytes/100 leukocytes 7 % 0-12 Automated blood eosinophils/100 leukocytes 2 % 0-10 Automated blood basophils/100 leukocytes 1 % 0-10 Blood neutrophils automated count (number/volume) 7.2 10*3 1.8-7.8 Blood lymphocytes automated count (number/volume) 2.0 10*3 1.0-4.0 Blood monocytes automated count (number/volume) 0.7 10*3 0.0-1.0 Automated eosinophil count 0.2 10*3/uL 0.0-0.3 Automated blood basophil count (count/volume) 0.1 10*3/uL 0.0-0.1 Comprehensive metabolic panel - 12/03/17 16:20 Serum or plasma sodium measurement (moles/volume) 138 mmol/L 135-145 Serum or plasma potassium measurement (moles/volume) 4.0 mmol/L 3.6-5.0 Serum or plasma chloride measurement (moles/volume) 103 mmol/L 98-107 Carbon dioxide 23 mmol/L 21-32 Serum or plasma anion gap determination (moles/volume) 12 mmol/L 5-14 Serum or plasma urea nitrogen measurement (mass/volume) 6 mg/dL 7-18 Serum or plasma creatinine measurement (mass/volume) 0.74 mg/dL 0.60-1.30 Serum or plasma urea nitrogen/creatinine mass ratio 8 NRG Serum or plasma creatinine measurement with calculation of estimated glomerular filtration rate > NRG Serum or plasma glucose measurement (mass/volume) 103 mg/dL 70-105 Serum or plasma calcium measurement (mass/volume) 9.4 mg/dL 8.5-10.1 Serum or plasma total bilirubin measurement (mass/volume) 0.5 mg/dL 0.1-1.0 Serum or plasma alkaline phosphatase measurement (enzymatic activity/volume) 101 U/L 40-136 Serum or plasma aspartate aminotransferase measurement (enzymatic activity/ volume) 23 U/L 5-34 Serum or plasma alanine aminotransferase measurement (enzymatic activity/volume ) 37 U/L 0-55 Serum or plasma protein measurement (mass/volume) 7.6 g/dL 6.4-8.2 Serum or plasma albumin measurement (mass/volume) 4.2 g/dL 3.2-4.5 Streptococcus pyogenes antigen detection - 12/03/17 16:24 Streptococcus pyogenes antigen detection NEGATIVE NEGATIVE Bacterial throat culture - 12/03/17 16:24 Bacterial throat culture [facility] Influenza virus A and B antigen detection - 12/03/17 16:32 FLU RESULT NEGATIVE FOR INFLUENZA A AND B ANTIGENS BY IA NRG Complete urinalysis with reflex to culture - 12/03/17 16:41 Urine color determination YELLOW NRG Urine clarity determination SLIGHTLY CLOUDY NRG Urine pH measurement by test strip 5 5-9 Specific gravity of urine by test strip 1.025 1.016- 1.022 Urine protein assay by test strip, semi-quantitative 2+ NEGATIVE Urine glucose detection by automated test strip NEGATIVE NEGATIVE Erythrocytes detection in urine sediment by light microscopy 3+ NEGATIVE Urine ketones detection by automated test strip NEGATIVE NEGATIVE Urine nitrite detection by test strip NEGATIVE NEGATIVE Urine total bilirubin detection by test strip NEGATIVE NEGATIVE Urine urobilinogen measurement by automated test strip (mass/volume) NORMAL NORMAL Urine leukocyte esterase detection by dipstick 1+ NEGATIVE Automated urine sediment erythrocyte count by microscopy (number/high power field) NONE NRG Automated urine sediment leukocyte count by microscopy (number/high power field ) NONE NRG Bacteria detection in urine sediment by light microscopy FEW NRG Squamous epithelial cells detection in urine sediment by light microscopy >50 NRG Crystals detection in urine sediment by light microscopy NONE NRG Casts detection in urine sediment by light microscopy NONE NRG Mucus detection in urine sediment by light microscopy SMALL NRG Complete urinalysis with reflex to culture NO NRG Encounters ACCT No. Visit Date/Time Discharge Status Pt. Type Provider Facility Loc./Unit Complaint [id number] 10/08/2013 16:48:00 10/08/2013 23:59:59 CLS Outpatient STACIE AMADOR DO [id number] 08/02/2013 13:38:00 08/02/2013 23:59:59 CLS Outpatient KRISTINA QUILES PSYD [id number] 01/05/2013 07:53:00 01/05/2013 23:59:59 CLS Outpatient KRISTINA QUILES PSYD [id number] 11/24/2012 10:03:00 11/24/2012 23:59:59 CLS Outpatient [id number] 08/01/2012 08:05:00 08/01/2012 23:59:59 CLS Outpatient KRISTINA QUILES PSYD [id number] 08/01/2012 08:05:00 08/01/2012 23:59:59 CLS Outpatient KRISTINA QUILES PSYD [id number] 01/29/2013 08:25:00 Document Registration [id number] 05/11/2018 17:20:00 05/11/2018 23:59:59 CLS Outpatient [facility] [id number] 12/03/2017 16:04:00 12/03/2017 17:55:00 DIS Emergency LEIDY WALKER [facility] ER N/V/D [id number] 10/19/2017 15:38:00 10/19/2017 17:43:00 DIS Emergency CHRISTOPHER RASHID MD [facility] ER CHILLS;NAUSEA [id number] 03/19/2017 07:19:00 03/19/2017 10:16:00 DIS Emergency GENA CHAPPELL MD [facility] ER FOOD POISONING [id number] 11/05/2015 07:11:00 11/10/2015 13:25:00 DIS Inpatient CAROLINA CARRASCO DO [facility] 4TH PNEUMONIA WITH HYPOXIA POSSIBLE SEPSIS [id number] 10/07/2015 06:32:00 10/07/2015 08:35:00 DIS Emergency FARZANA ABAD MD [facility] ER [id number] 01/27/2015 03:10:00 01/28/2015 17:20:00 DIS Inpatient YUN ERAZO FACC, PRO WHITE CCDS [facility] CSD [id number] 01/26/2015 12:38:00 01/26/2015 23:59:59 CLS Outpatient VICTORINO MEI APRN [facility] QUICK [id number] 07/15/2014 02:34:00 07/15/2014 03:26:00 DIS Emergency CHRISTOPHER RASHID MD [facility] ER [id number] 05/09/2014 20:56:00 05/09/2014 22:11:00 DIS Emergency CHRISTOPHER RASHID MD [facility] ER [id number] 04/12/2014 07:54:00 04/12/2014 09:30:00 DIS Emergency MANUEL MCKEON MD [facility] ER [id number] 04/11/2014 16:39:00 04/11/2014 20:28:00 DIS Emergency AMY CROWELL [facility] ER [id number] 03/28/2014 09:49:00 03/28/2014 21:30:00 DIS Outpatient MAYA MATOS MD [facility] [id number] 03/21/2014 08:30:00 03/21/2014 23:59:59 CLS Outpatient MAYA MATOS MD [facility] PREOP [id number] 03/07/2014 02:39:00 03/07/2014 06:06:00 DIS Emergency MANUEL MCKEON MD [facility] ER [id number] 02/27/2017 19:30:00 Document Registration [id number] 07/27/2015 08:37:00 Document Registration [id number] 01/01/2013 04:50:00 Document Registration [id number] 11/27/2012 11:03:00 Document Registration [id number] 10/31/2012 07:15:00 Document Registration [id number] 10/30/2012 15:21:00 Document Registration [id number] 10/25/2012 21:35:00 Document Registration [id number] 10/23/2012 18:24:00 Document Registration [id number] 10/15/2012 12:40:00 Document Registration [id number] 09/30/2012 02:53:00 Document Registration [id number] 08/31/2012 20:04:00 Document Registration [id number] 07/06/2012 15:01:00 Document Registration [id number] 06/21/2012 22:55:00 Document Registration [id number] 05/11/2012 09:57:00 Document Registration [id number] 05/29/2011 05:42:00 Document Registration
[2018-05-24] MEDS ORDERED: ACETAMINOPHEN 325 MG TABLET PO ONE (14:15)
[2018-05-24] MEDS ORDERED: ALPR1TAB2 PO (14:15)
[2018-05-24] MEDS ORDERED: ACET-2267 PO (14:29)
[2018-05-24] MEDS ORDERED: CETI10TA20 PO (14:29)
[2018-05-24] MEDS ORDERED: IBUP-30 PO (14:29)
[2018-05-24 14:55] LABS: BACTERIA,URINE MODERATE /HPF; BILIRUBIN,URINE 1+ (NEGATIVE); HYALINE CASTS, URINE RARE /LPF; RBC,URINE 0-2 /HPF; WBC,URINE 50-100 /HPF
--- NOTE | 2018-05-24 17:07 | History & Physical-Hospitalist ---
History of Present Illness HPI/Chief Complaint Pt is a 38yoCF with a PMH of HTN who presented to the ER with CC of fevers and chills. She states she was treated for strep throat by [facility] walk-in clinic and completed her course a few days ago. After she completed the course developed chills and fever of 102 on 05/22 evening. She awoke 05/23 and felt slightly better and was able to eat and drink but today worsened and returned to [facility] walk in clinic where she was diagnosed with a UTI. She was sent to the hospital for labs and developed left sided back pain and decided to be seen in the ER. She also vomited once today. For the past 2-3 days she has had severe itching on her hands and feet to the point where she has developed excoriations and this morning noticed a rash on her arms. She also noticed some paresthesias in her right hand first three digits. Source: patient Exam Limitations: no limitations Date Seen 05/24/18 Time Seen by Provider: 17:01 Attending Physician Damaris Mei MD PCP Darin Byers MD Referring Physician Date of Admission May 24, 2018 at 3:18 pm Home Medications & Allergies Home Medications Reviewed patient Home Medication Reconciliation performed by pharmacy medication reconciliations agriculture laboratory technician and/or nursing. Patients Allergies have been reviewed. Allergies Allergies Coded Allergies codeine (Unverified Allergy, Mild, 05/29/11) vomitting Past Suvnwsr-Worgel-Vdbdwy Hx Past Med/Social Hx: Reviewed Nursing Past Med/Soc Hx Patient Social History Employed/Student: employed Alcohol Use: Rarely Uses Smoking Status: Never a Smoker 2nd Hand Smoke Exposure: No Recent Foreign Travel: No Contact w/other who traveled: No Recent Hopitalizations: No Recent Infectious Disease Expo: No Immunizations Up To Date Tetanus Booster (TDap): Less than 5yrs Date of Influenza Vaccine: Aug 05, 2017 Seasonal Allergies Seasonal Allergies: Yes Past Medical History Surgeries: Adenoidectomy, Section, Gallbladder, Orthopedic, Tonsillectomy, Tubal Ligation Currently Using CPAP: No Currently Using BIPAP: No Cardiac: Hypertension : No Reproductive: No Sexually Transmitted Disease: No HIV/AIDS: No Female Reproductive Disorders: Denies Tubal Ligation Musculoskeletal: Scoliosis, Fractures Loss of Vision: Denies Hearing Impairment: Denies Psychosocial: Sleep Difficulties, Anxiety, Depression History of Blood Disorders: No Adverse Reaction to Blood [place]: No Family History Reviewed and Corrections made Diabetes mellitus 19 MOTHER Heart Disease, CVA, Diabetes Review of Systems Constitutional: chills, fever, malaise EENTM: no symptoms reported Respiratory: no symptoms reported Cardiovascular: no symptoms reported Gastrointestinal: loss of appetite, nausea, vomiting Genitourinary: see HPI, dysuria Musculoskeletal: back pain (left sided) Skin: no symptoms reported Psychiatric/Neurological: No Symptoms Reported Physical Exam Physical Exam Vital Signs Vital Signs - First Documented 05/24/18 13:18 Temp 104.3 Pulse 147 Resp 22 B/P (MAP) 117/56 (76) Pulse Ox 97 O2 Delivery Room Air Capillary Refill : Less Than 3 Seconds Height, Weight, BMI Height: 5'1.00" Weight: 250lbs. 0oz. 113.779426dn; 45.42 BMI Method:Stated General Appearance: No Apparent Distress, WD/WN HEENT: PERRL/EOMI, Moist Mucous Membranes Neck: Non Tender, Supple Respiratory: Lungs Clear, No Respiratory Distress Cardiovascular: Regular Rate, Rhythm, No Murmur Gastrointestinal: Normal Bowel Sounds, Non Tender, Soft Back: CVA Tenderness (L) Extremity: Normal Capillary Refill, No Calf Tenderness Neurologic/Psychiatric: Alert, Oriented x3, Normal Mood/Affect Skin: Normal Color, Warm/Dry Results Results/Procedures Labs Laboratory Tests 05/25/18 05:36 Patient resulted labs reviewed. Assessment/Plan Admission Diagnosis Severe Sepsis Admission Status: Inpatient Order (span 2 midnights) Reason for Inpatient Admission: failed outpatient management Diagnosis/Problems Diagnosis/Problems (1) Severe sepsis Assessment & Plan: Leukocytosis with fever and likely pyelonephritis given clinical picture Lactic acid elevated but not hypotension Rocephin started in ED- will continue Await cultures- drawn in ED (2) UTI (urinary tract infection) Status: Acute Assessment & Plan: Abx as above Await cultures Qualifiers: Urinary tract infection type: acute pyelonephritis Qualified Codes: N10 - Acute pyelonephritis (3) Essential (primary) hypertension Assessment & Plan: Normotensive currently, hold home meds trend (4) Nausea Status: Acute Assessment & Plan: Zofran prn (5) Anxiety Assessment & Plan: Resume home meds (6) Rash Status: Acute Assessment & Plan: Likely due to amoxil (7) Thrush Status: Acute Assessment & Plan: Diflucan BHAVANI,DAMARIS M MD May 24, 2018 5:07 pm
[2018-05-24] MEDS: NS IV 1000 ML 1,000 ML IV SCH ×2 (17:08→22:10)
[2018-05-24] MEDS: cefTRIAXone INJECTION 1,000 MG in NS (IVPB) 50 ML IV SCH (17:09)
[2018-05-24] MEDS ORDERED: ALPRAZolam 0.25 MG (XANAX) TAB PO PRN (18:45)
[2018-05-24] MEDS: ACETAMINOPHEN 500 MG TAB (TYLENOL) PO PRN (18:59)
[2018-05-24 20:18] VITALS: BP 130/57
[2018-05-24] MEDS: HYDROcodone/APAP 5 MG/325 MG (LORTAB) TAB PO PRN (20:27)
[2018-05-24] MEDS: DULoxetine 30 MG (CYMBALTA) CAP PO SCH (20:27)
[2018-05-24] MEDS: diphenhydrAMINE 25 MG TAB (BENADRYL) PO PRN (22:43)
[2018-05-24] MEDS: ALPRAZolam 1 MG (XANAX) TAB PO PRN (22:43)
[2018-05-24 23:49] VITALS: BP 138/63
[2018-05-25] MEDS: HYDROcodone/APAP 5 MG/325 MG (LORTAB) TAB PO PRN ×3 (01:47→13:02)
[2018-05-25] MEDS: NS IV 1000 ML 1,000 ML IV SCH ×2 (01:48→08:30)
[2018-05-25 03:38] VITALS: BP 132/60
[2018-05-25 06:14] LABS: BASOPHILS % (AUTO) 0 % (0-10); EOSINOPHILS # (AUTO) 0.5 10^3/uL (0.0-0.3); EOSINOPHILS % (AUTO) 4 % (0-10); HEMATOCRIT 37 % (35-52); HEMOGLOBIN 12.3 G/DL (11.5-16.0); LYMPHOCYTES % (AUTO) 7 % (12-44); MEAN CORPUSCULAR HEMOGLOBIN 28 PG (25-34); MEAN CORPUSCULAR HGB CONC 33 G/DL (32-36); MEAN CORPUSCULAR VOLUME 85 FL (80-99); MEAN PLATELET VOLUME 9.4 FL (7.4-10.4); MONOCYTES # (AUTO) 0.3 X 10^3 (0.0-1.0); MONOCYTES % (AUTO) 2 % (0-12); NEUTROPHILS # (AUTO) 12.6 X 10^3 (1.8-7.8); NEUTROPHILS % (AUTO) 87 % (42-75); PLATELET COUNT 252 10^3/uL (130-400); RED BLOOD COUNT 4.38 10^6/uL (4.35-5.85); WHITE BLOOD COUNT 14.5 10^3/uL (4.3-11.0)
[2018-05-25 06:32] LABS: ALANINE AMINOTRANSFERASE 63 U/L (0-55); ALKALINE PHOSPHATASE 103 U/L (40-136); BILIRUBIN,TOTAL 0.7 MG/DL (0.1-1.0); BUN/CREATININE RATIO 9; CALCIUM 7.5 MG/DL (8.5-10.1); CARBON DIOXIDE 19 MMOL/L (21-32); CHLORIDE 106 MMOL/L (98-107); CREATININE SERUM 0.64 MG/DL (0.60-1.30); GFR ESTIMATED > 60; GLUCOSE 107 MG/DL (70-105); POTASSIUM 3.6 MMOL/L (3.6-5.0); SODIUM 135 MMOL/L (135-145); TOTAL PROTEIN 5.3 GM/DL (6.4-8.2)
[2018-05-25] MEDS: diphenhydrAMINE 25 MG TAB (BENADRYL) PO PRN ×3 (07:10→22:34)
[2018-05-25 08:58] VITALS: BP 139/72
--- NOTE | 2018-05-25 10:05 | Progress Note-Hospitalist ---
Subjective HPI/CC On Admission Date Seen by Provider: May 25, 2018 Time Seen by Provider: 10:10 Pt is a 38yoCF with a PMH of HTN who presented to the ER with CC of fevers and chills. She states she was treated for strep throat by [facility] walk-in clinic and completed her course a few days ago. After she completed the course developed chills and fever of 102 on 05/22 evening. She awoke 05/23 and felt slightly better and was able to eat and drink but today worsened and returned to [facility] walk in clinic where she was diagnosed with a UTI. She was sent to the hospital for labs and developed left sided back pain and decided to be seen in the ER. She also vomited once today. For the past 2-3 days she has had severe itching on her hands and feet to the point where she has developed excoriations and this morning noticed a rash on her arms. She also noticed some paresthesias in her right hand first three digits. Subjective/Events-last exam Pt reports having a rough night with pain in her hand but that improved with hydrocodone. Focused Exam Lactate Level 05/24/18 13:35: Lactic Acid Level 2.42*H 05/24/18 15:21: Lactic Acid Level 1.62 Objective Exam Vital Signs Vital Signs Date Time Temp Pulse Resp B/P (MAP) Pulse Ox O2 Delivery O2 Flow Rate FiO2 05/25/18 08:58 97.7 115 28 139/72 (94) 91 Room Air Capillary Refill : Less Than 3 Seconds General Appearance: No Apparent Distress, WD/WN Respiratory: Lungs Clear, No Respiratory Distress Cardiovascular: Regular Rate, Rhythm, Normal Peripheral Pulses Gastrointestinal: Normal Bowel Sounds, Non Tender, Soft Neurologic/Psychiatric: Alert, Oriented x3 Results/Procedures Lab Laboratory Tests 05/25/18 05:36 Patient resulted labs reviewed. Assessment/Plan Assessment and Plan Assess & Plan/Chief Complaint Severe Sepsis Diagnosis/Problems Diagnosis/Problems (1) Severe sepsis Status: Resolved Assessment & Plan: Leukocytosis with fever and likely pyelonephritis given clinical picture Lactic acidosis resolved Continue Rocephin Await cultures- drawn in ER (2) UTI (urinary tract infection) Status: Acute Assessment & Plan: Abx as above Await cultures Qualifiers: Urinary tract infection type: acute pyelonephritis Qualified Codes: N10 - Acute pyelonephritis (3) Essential (primary) hypertension Assessment & Plan: Normotensive currently, hold home meds trend (4) Rash Status: Acute Assessment & Plan: Likely due to amoxil Continue Benadryl (5) Hand pain Assessment & Plan: paresthesias in first three fingers Worse overnight with hand swelling Consistent with carpal tunnel Qualifiers: Laterality: right Qualified Codes: M79.641 - Pain in right hand (6) Anxiety Assessment & Plan: Resume home meds (7) Nausea Status: Acute Assessment & Plan: Zofran prn (8) Thrush Status: Acute Assessment & Plan: Diflucan Clinical Quality Measures DVT/VTE Risk/Contraindication: Risk Factor Score Per Nursin RFS Level Per Nursing on Admit: 1=Low/No VTE PPX DAMARIS BECKHAM MD May 25, 2018 10:05 am
[2018-05-25 12:00] VITALS: BP 126/71
[2018-05-25] MEDS: cefTRIAXone INJECTION 1,000 MG in NS (IVPB) 50 ML IV SCH (14:52)
[2018-05-25] MEDS: ACETAMINOPHEN 500 MG TAB (TYLENOL) PO PRN (15:56)
[2018-05-25 16:41] VITALS: BP 145/92
[2018-05-25] MEDS: fentaNYL INJECTION 100 MCG/2 ML AMP IVP PRN ×2 (19:02→22:34)
[2018-05-25] MEDS: DULoxetine 30 MG (CYMBALTA) CAP PO SCH (20:39)
[2018-05-25 20:59] VITALS: BP 125/63
[2018-05-25] MEDS: ALPRAZolam 1 MG (XANAX) TAB PO PRN (22:34)
[2018-05-26 00:25] VITALS: BP 134/63
[2018-05-26] MEDS: ACETAMINOPHEN 500 MG TAB (TYLENOL) PO PRN ×2 (01:38→19:28)
[2018-05-26 04:25] VITALS: BP 136/66
[2018-05-26 05:56] LABS: BASOPHILS % (AUTO) 0 % (0-10); EOSINOPHILS # (AUTO) 0.7 10^3/uL (0.0-0.3); EOSINOPHILS % (AUTO) 8 % (0-10); HEMATOCRIT 35 % (35-52); HEMOGLOBIN 11.6 G/DL (11.5-16.0); LYMPHOCYTES # (AUTO) 1.5 X 10^3 (1.0-4.0); LYMPHOCYTES % (AUTO) 15 % (12-44); MEAN CORPUSCULAR HEMOGLOBIN 29 PG (25-34); MEAN CORPUSCULAR HGB CONC 34 G/DL (32-36); MEAN CORPUSCULAR VOLUME 86 FL (80-99); MEAN PLATELET VOLUME 9.3 FL (7.4-10.4); MONOCYTES # (AUTO) 0.3 X 10^3 (0.0-1.0); MONOCYTES % (AUTO) 4 % (0-12); NEUTROPHILS # (AUTO) 7.1 X 10^3 (1.8-7.8); NEUTROPHILS % (AUTO) 74 % (42-75); PLATELET COUNT 266 10^3/uL (130-400); RED BLOOD COUNT 4.04 10^6/uL (4.35-5.85); RED CELL DISTRIBUTION WIDTH 13.7 % (10.0-14.5); WHITE BLOOD COUNT 9.7 10^3/uL (4.3-11.0)
[2018-05-26 06:14] LABS: ALANINE AMINOTRANSFERASE 69 U/L (0-55); ALBUMIN 2.8 GM/DL (3.2-4.5); ALKALINE PHOSPHATASE 102 U/L (40-136); BILIRUBIN,TOTAL 0.2 MG/DL (0.1-1.0); BUN/CREATININE RATIO 7; CALCIUM 8.4 MG/DL (8.5-10.1); CARBON DIOXIDE 26 MMOL/L (21-32); CHLORIDE 106 MMOL/L (98-107); CREATININE SERUM 0.57 MG/DL (0.60-1.30); GFR ESTIMATED > 60; GLUCOSE 102 MG/DL (70-105); POTASSIUM 3.6 MMOL/L (3.6-5.0); SODIUM 139 MMOL/L (135-145); TOTAL PROTEIN 5.5 GM/DL (6.4-8.2)
[2018-05-26] MEDS: HYDROcodone/APAP 5 MG/325 MG (LORTAB) TAB PO PRN ×4 (06:18→21:13)
[2018-05-26 08:00] VITALS: BP 162/73
--- NOTE | 2018-05-26 10:10 | Progress Note-Hospitalist ---
Subjective HPI/CC On Admission Date Seen by Provider: May 26, 2018 Time Seen by Provider: 10:05 Pt is a 38yoCF with a PMH of HTN who presented to the ER with CC of fevers and chills. She states she was treated for strep throat by [facility] walk-in clinic and completed her course a few days ago. After she completed the course developed chills and fever of 102 on 05/22 evening. She awoke 05/23 and felt slightly better and was able to eat and drink but today worsened and returned to [facility] walk in clinic where she was diagnosed with a UTI. She was sent to the hospital for labs and developed left sided back pain and decided to be seen in the ER. She also vomited once today. For the past 2-3 days she has had severe itching on her hands and feet to the point where she has developed excoriations and this morning noticed a rash on her arms. She also noticed some paresthesias in her right hand first three digits. Subjective/Events-last exam Pt reports feeling better but still has poor appetite and hand and back pain. Focused Exam Lactate Level 05/24/18 13:35: Lactic Acid Level 2.42*H 05/24/18 15:21: Lactic Acid Level 1.62 Objective Exam Vital Signs Vital Signs Date Time Temp Pulse Resp B/P (MAP) Pulse Ox O2 Delivery O2 Flow Rate FiO2 05/26/18 04:25 97.6 113 20 136/66 (89) 90 Room Air Capillary Refill : Less Than 3 Seconds General Appearance: No Apparent Distress, WD/WN, Obese Respiratory: Lungs Clear, No Respiratory Distress Cardiovascular: Regular Rate, Rhythm, No Murmur Gastrointestinal: Normal Bowel Sounds, Non Tender, Soft Extremity: Normal Capillary Refill, No Calf Tenderness, Pedal Edema (trace bilateral) Neurologic/Psychiatric: Alert, Oriented x3, Normal Mood/Affect Results/Procedures Lab Laboratory Tests 05/26/18 05:20 Patient resulted labs reviewed. Assessment/Plan Assessment and Plan Assess & Plan/Chief Complaint Severe Sepsis Diagnosis/Problems Diagnosis/Problems (1) Severe sepsis Status: Resolved Assessment & Plan: Leukocytosis with fever and likely pyelonephritis given clinical picture Lactic acidosis resolved Continue Rocephin Await urine cultures- sent to [facility] Blood cultures- NGTD (2) UTI (urinary tract infection) Status: Acute Assessment & Plan: Abx as above Await cultures Qualifiers: Urinary tract infection type: acute pyelonephritis Qualified Codes: N10 - Acute pyelonephritis (3) Essential (primary) hypertension Assessment & Plan: Normotensive currently, hold home meds trend (4) Rash Status: Acute Assessment & Plan: Likely due to amoxil Continue Benadryl (5) Hand pain Assessment & Plan: paresthesias in first three fingers Consistent with carpal tunnel Qualifiers: Laterality: right Qualified Codes: M79.641 - Pain in right hand (6) Anxiety Assessment & Plan: Resume home meds (7) Nausea Status: Acute Assessment & Plan: Zofran prn Clinical Quality Measures DVT/VTE Risk/Contraindication: Risk Factor Score Per Nursin RFS Level Per Nursing on Admit: 1=Low/No VTE PPX DAMARIS BECKHAM MD May 26, 2018 10:10
[2018-05-26] MEDS: ENOXAPARIN 40 MG/0.4 ML (LOVENOX) SYR SC SCH ×2 (11:08→20:30)
[2018-05-26 12:00] VITALS: BP 154/83
[2018-05-26] MEDS: cefTRIAXone INJECTION 1,000 MG in NS (IVPB) 50 ML IV SCH (15:10)
[2018-05-26 15:45] VITALS: BP 145/75
[2018-05-26 19:40] VITALS: BP 143/86
[2018-05-26] MEDS: DULoxetine 30 MG (CYMBALTA) CAP PO SCH (20:30)
[2018-05-26] MEDS: meTOprolol SUCCINATE 100 MG (TOPROL XL) TAB PO SCH (20:30)
[2018-05-27 00:47] VITALS: BP 154/88
[2018-05-27] MEDS: ALPRAZolam 1 MG (XANAX) TAB PO PRN ×2 (02:15→21:06)
[2018-05-27] MEDS: ONDANSETRON 4 MG (ZOFRAN) ORAL DISSOLVE TAB PO PRN ×2 (03:13→08:18)
[2018-05-27 04:00] VITALS: BP 139/86
[2018-05-27 06:17] LABS: BASOPHILS % (AUTO) 1 % (0-10); EOSINOPHILS # (AUTO) 0.7 10^3/uL (0.0-0.3); EOSINOPHILS % (AUTO) 9 % (0-10); HEMATOCRIT 35 % (35-52); HEMOGLOBIN 11.6 G/DL (11.5-16.0); LYMPHOCYTES # (AUTO) 2.1 X 10^3 (1.0-4.0); LYMPHOCYTES % (AUTO) 29 % (12-44); MEAN CORPUSCULAR HEMOGLOBIN 28 PG (25-34); MEAN CORPUSCULAR HGB CONC 33 G/DL (32-36); MEAN CORPUSCULAR VOLUME 86 FL (80-99); MEAN PLATELET VOLUME 8.9 FL (7.4-10.4); MONOCYTES # (AUTO) 0.4 X 10^3 (0.0-1.0); MONOCYTES % (AUTO) 5 % (0-12); NEUTROPHILS # (AUTO) 4.1 X 10^3 (1.8-7.8); NEUTROPHILS % (AUTO) 56 % (42-75); PLATELET COUNT 278 10^3/uL (130-400); RED BLOOD COUNT 4.08 10^6/uL (4.35-5.85); RED CELL DISTRIBUTION WIDTH 13.8 % (10.0-14.5); WHITE BLOOD COUNT 7.3 10^3/uL (4.3-11.0)
[2018-05-27 06:39] LABS: ALANINE AMINOTRANSFERASE 63 U/L (0-55); ALBUMIN 3.1 GM/DL (3.2-4.5); ALKALINE PHOSPHATASE 102 U/L (40-136); BILIRUBIN,TOTAL 0.2 MG/DL (0.1-1.0); BUN/CREATININE RATIO 5; CALCIUM 8.5 MG/DL (8.5-10.1); CARBON DIOXIDE 28 MMOL/L (21-32); CHLORIDE 103 MMOL/L (98-107); CREATININE SERUM 0.55 MG/DL (0.60-1.30); GFR ESTIMATED > 60; GLUCOSE 91 MG/DL (70-105); POTASSIUM 3.5 MMOL/L (3.6-5.0); SODIUM 140 MMOL/L (135-145); TOTAL PROTEIN 5.8 GM/DL (6.4-8.2)
[2018-05-27] MEDS: HYDROcodone/APAP 5 MG/325 MG (LORTAB) TAB PO PRN ×3 (07:43→18:07)
[2018-05-27] MEDS: ENOXAPARIN 40 MG/0.4 ML (LOVENOX) SYR SC SCH ×2 (07:44→21:06)
[2018-05-27 08:00] VITALS: BP 108/79
--- NOTE | 2018-05-27 08:26 | Progress Note-Hospitalist ---
Subjective HPI/CC On Admission Date Seen by Provider: May 27, 2018 Time Seen by Provider: 08:24 Pt is a 38yoCF with a PMH of HTN who presented to the ER with CC of fevers and chills. She states she was treated for strep throat by [facility] walk-in clinic and completed her course a few days ago. After she completed the course developed chills and fever of 102 on 05/22 evening. She awoke 05/23 and felt slightly better and was able to eat and drink but today worsened and returned to [facility] walk in clinic where she was diagnosed with a UTI. She was sent to the hospital for labs and developed left sided back pain and decided to be seen in the ER. She also vomited once today. For the past 2-3 days she has had severe itching on her hands and feet to the point where she has developed excoriations and this morning noticed a rash on her arms. She also noticed some paresthesias in her right hand first three digits. Subjective/Events-last exam Pt complains of headache and nausea this AM. She reports feeling really well last night but then ate a salad and began to feel nauseated and vomited once. Focused Exam Lactate Level 05/24/18 13:35: Lactic Acid Level 2.42*H 05/24/18 15:21: Lactic Acid Level 1.62 Objective Exam Vital Signs Vital Signs Date Time Temp Pulse Resp B/P (MAP) Pulse Ox O2 Delivery O2 Flow Rate FiO2 05/27/18 04:00 96.7 95 20 139/86 (103) 91 Room Air Capillary Refill : Less Than 3 Seconds General Appearance: No Apparent Distress, WD/WN Respiratory: Lungs Clear, No Respiratory Distress Cardiovascular: Regular Rate, Rhythm, No Murmur Gastrointestinal: Normal Bowel Sounds, Non Tender, Soft Extremity: No Calf Tenderness, Pedal Edema (trace bilateral) Neurologic/Psychiatric: Alert, Oriented x3, Normal Mood/Affect Results/Procedures Lab Laboratory Tests 05/27/18 05:57 Patient resulted labs reviewed. Assessment/Plan Assessment and Plan Assess & Plan/Chief Complaint Severe Sepsis Diagnosis/Problems Diagnosis/Problems (1) Severe sepsis Status: Resolved Assessment & Plan: Likely pyelonephritis given clinical picture Lactic acidosis resolved Continue Rocephin Urine culture growing staph but review of UA shows contamination with 10-25 squams to likely a contaminated source Blood cultures- NGTD (2) UTI (urinary tract infection) Status: Acute Assessment & Plan: Abx as above Qualifiers: Urinary tract infection type: acute pyelonephritis Qualified Codes: N10 - Acute pyelonephritis (3) Essential (primary) hypertension Assessment & Plan: Resume home BP meds (4) Rash Status: Acute Assessment & Plan: Likely due to amoxil Continue Benadryl prn (5) Hand pain Assessment & Plan: paresthesias in first three fingers Consistent with carpal tunnel Qualifiers: Laterality: right Qualified Codes: M79.641 - Pain in right hand (6) Anxiety Assessment & Plan: Resume home meds (7) Nausea Status: Acute Assessment & Plan: Zofran prn Clinical Quality Measures DVT/VTE Risk/Contraindication: Risk Factor Score Per Nursin RFS Level Per Nursing on Admit: 1=Low/No VTE PPX DAMARIS BECKHAM MD May 27, 2018 08:26
[2018-05-27] MEDS ORDERED: IBUPROFEN 600 MG (MOTRIN) TAB PO PRN (08:30)
[2018-05-27] MEDS ORDERED: ONDANSETRON 4 MG (ZOFRAN) ORAL DISSOLVE TAB PO PRN (08:30)
[2018-05-27] MEDS: fentaNYL INJECTION 100 MCG/2 ML AMP IVP PRN (09:11)
[2018-05-27 12:00] VITALS: BP 126/77
[2018-05-27] MEDS: cefTRIAXone INJECTION 1,000 MG in NS (IVPB) 50 ML IV SCH (15:16)
[2018-05-27 16:05] VITALS: BP 143/69
[2018-05-27] MEDS: DULoxetine 30 MG (CYMBALTA) CAP PO SCH (21:06)
[2018-05-27] MEDS: meTOprolol SUCCINATE 100 MG (TOPROL XL) TAB PO SCH (21:06)
[2018-05-28] VITALS: BP 120/70
[2018-05-28] MEDS: HYDROcodone/APAP 5 MG/325 MG (LORTAB) TAB PO PRN ×2 (03:34→08:48)
[2018-05-28 04:00] VITALS: BP 144/85
[2018-05-28 05:56] LABS: BASOPHILS # (AUTO) 0.1 10^3/uL (0.0-0.1); BASOPHILS % (AUTO) 1 % (0-10); EOSINOPHILS # (AUTO) 0.8 10^3/uL (0.0-0.3); EOSINOPHILS % (AUTO) 10 % (0-10); HEMATOCRIT 38 % (35-52); HEMOGLOBIN 12.3 G/DL (11.5-16.0); LYMPHOCYTES # (AUTO) 2.9 X 10^3 (1.0-4.0); LYMPHOCYTES % (AUTO) 34 % (12-44); MEAN CORPUSCULAR HEMOGLOBIN 28 PG (25-34); MEAN CORPUSCULAR HGB CONC 32 G/DL (32-36); MEAN CORPUSCULAR VOLUME 87 FL (80-99); MEAN PLATELET VOLUME 9.2 FL (7.4-10.4); MONOCYTES # (AUTO) 0.5 X 10^3 (0.0-1.0); MONOCYTES % (AUTO) 6 % (0-12); NEUTROPHILS # (AUTO) 4.3 X 10^3 (1.8-7.8); NEUTROPHILS % (AUTO) 50 % (42-75); PLATELET COUNT 324 10^3/uL (130-400); RED BLOOD COUNT 4.42 10^6/uL (4.35-5.85); WHITE BLOOD COUNT 8.6 10^3/uL (4.3-11.0)
[2018-05-28 06:35] LABS: ALANINE AMINOTRANSFERASE 66 U/L (0-55); ALBUMIN 3.5 GM/DL (3.2-4.5); ALKALINE PHOSPHATASE 95 U/L (40-136); BILIRUBIN,TOTAL 0.2 MG/DL (0.1-1.0); BUN/CREATININE RATIO 14; CALCIUM 9.1 MG/DL (8.5-10.1); CARBON DIOXIDE 31 MMOL/L (21-32); CHLORIDE 101 MMOL/L (98-107); CREATININE SERUM 0.65 MG/DL (0.60-1.30); GFR ESTIMATED > 60; GLUCOSE 93 MG/DL (70-105); POTASSIUM 3.8 MMOL/L (3.6-5.0); SODIUM 141 MMOL/L (135-145); TOTAL PROTEIN 6.7 GM/DL (6.4-8.2)
[2018-05-28 08:27] VITALS: BP 131/66
[2018-05-28] MEDS: ENOXAPARIN 40 MG/0.4 ML (LOVENOX) SYR SC SCH (08:48)
[2018-05-28] MEDS ORDERED: CEFD300C3 PO (10:30)
[2018-05-28] MEDS ORDERED: ACHD5005 PO (10:30)
--- NOTE | 2018-05-28 10:35 | Discharge Inst-Simple/Standard ---
Discharge Inst-Standard Patient Instructions/Follow Up Plan of Care/Instructions/FU: Please continue to take your antibiotics as written even if you feel better. Please schedule a follow up with a PCP to follow up this admission. Activity as Tolerated: Yes Discharge Diet: No Restrictions Return to The Hospital For: Chest pain, fever, shortness of breath, if you feel you are getting worse. DAMARIS BECKHAM MD May 28, 2018 10:35 am
--- NOTE | 2018-05-28 10:37 | Discharge Summary-Hospitalist ---
Diagnosis/Chief Complaint Date of Admission May 24, 2018 at 3:18 pm Date of Discharge Discharge Date: May 28, 2018 Admission Diagnosis Severe Sepsis Discharge Diagnosis (1) Severe sepsis Status: Resolved Assessment & Plan: Likely pyelonephritis given clinical picture Lactic acidosis resolved Treated with Rocephin while inpatient Urine culture growing staph but review of UA shows contamination with 10-25 squams to likely a contaminated source Blood cultures- NGTD (2) UTI (urinary tract infection) Status: Acute Assessment & Plan: Abx as above (3) Essential (primary) hypertension Assessment & Plan: Resume home BP meds (4) Rash Status: Acute Assessment & Plan: Likely due to amoxil Continue Benadryl prn (5) Hand pain Assessment & Plan: paresthesias in first three fingers Consistent with carpal tunnel (6) Anxiety Assessment & Plan: Resume home meds (7) Nausea Status: Acute Assessment & Plan: Zofran prn Discharge Summary Discharge Physical Exam Allergies: Coded Allergies: codeine (Unverified Allergy, Mild, 05/29/11) vomitting Vitals & I&Os Vital Signs Date Time Temp Pulse Resp B/P (MAP) Pulse Ox O2 Delivery O2 Flow Rate FiO2 05/28/18 11:15 05/28/18 08:27 97.2 86 16 92 Room Air General Appearance: Alert, Oriented X3 Respiratory: Clear to Auscultation Cardiovascular: Regular Rate Abdominal: Normal Bowel Sounds Hospital Course Pt was admitted due to severe sepsis likely from pyelonephritis based of clinical presentation. She had just been on Amoxil for strep throat but shortly after completing the course she developed nausea, vomiting, back pain, and dysuria. She was admitted for IV antibiotics and recovered slowly. Given rash tick panel was done and negative. Blood cultures were negative and unfortunately urine specimen appeared contaminated. She was discharged home in stable condition to complete course of oral antibiotics. I advised her to stay on probiotic or to eat probiotic yogurt for duration of antibiotics. She is to call a physician to establish care tomorrow and follow up this hospital stay. Labs (last 24 hrs) Laboratory Tests 05/28/18 05:03: White Blood Count 8.6, Red Blood Count 4.42, Hemoglobin 12.3, Hematocrit 38, Mean Corpuscular Volume 87, Mean Corpuscular Hemoglobin 28, Mean Corpuscular Hemoglobin Concent 32, Red Cell Distribution Width 14.0, Platelet Count 324, Mean Platelet Volume 9.2, Neutrophils (%) (Auto) 50, Lymphocytes (%) (Auto) 34, Monocytes (%) (Auto) 6, Eosinophils (%) (Auto) 10, Basophils (%) (Auto) 1, Neutrophils # (Auto) 4.3, Lymphocytes # (Auto) 2.9, Monocytes # (Auto) 0.5, Eosinophils # (Auto) 0.8H, Basophils # (Auto) 0.1, Sodium Level 141, Potassium Level 3.8, Chloride Level 101, Carbon Dioxide Level 31, Anion Gap 9, Blood Urea Nitrogen 9, Creatinine 0.65, Estimat Glomerular Filtration Rate > 60, BUN/ Creatinine Ratio 14, Glucose Level 93, Calcium Level 9.1, Corrected Calcium 9.5 , Total Bilirubin 0.2, Aspartate Amino Transf (AST/SGOT) 37H, Alanine Aminotransferase (ALT/SGPT) 66H, Alkaline Phosphatase 95, Total Protein 6.7, Albumin 3.5 Microbiology 05/24/18 Blood Culture - Preliminary, Resulted No growth 05/24/18 Throat Culture - Final, Complete No Beta Strep isolated 05/24/18 Urine Culture - Final, Complete Staphylococcus aureus See Comments Sent To l Patient resulted labs reviewed. Pending Labs Discussion & Recommendations Discharge Planning: >30 minutes discharge planning Discharge Home Medications: Active Scripts Active Cefdinir 300 Mg Capsule 300 Mg PO BID Hydrocodone/Acetaminophen 5/325mg Tablet (Acetaminophen/Hydrocodone Bitart) 1 Tab Tab 1-2 Tab PO Q4H PRN Reported Tylenol Extra Strength (Acetaminophen) 500 Mg Tablet 1,000 Mg PO Q6H PRN ALTERNATES WITH IBU Advil (Ibuprofen) 200 Mg Tablet 400 Mg PO Q6H PRN ALTERNATES WITH TYLENOL Zyrtec (Cetirizine HCl) 10 Mg Tablet 10 Mg PO DAILY PRN Xanax (Alprazolam) 1 Mg Tablet 0.5 Mg PO BID PRN TAKES 1/2 (1MG) TABLET Metoprolol Succinate 100 Mg Tab.er.24h 100 Mg PO HS Xanax (Alprazolam) 1 Mg Tablet 1-2 Mg PO HS TAKES 1-2 (1 MG) TABLETS Duloxetine HCl 60 Mg Capsule.dr 60 Mg PO HS Instructions to patient/family Please see electronic discharge instructions given to patient. Clinical Quality Measures DVT/VTE Risk/Contraindication: Risk Factor Score Per Nursin RFS Level Per Nursing on Admit: 1=Low/No VTE PPX Problem Qualifiers (1) UTI (urinary tract infection): Urinary tract infection type: acute pyelonephritis Qualified Codes: N10 - Acute pyelonephritis (2) Hand pain: Laterality: right Qualified Codes: M79.641 - Pain in right hand DAMARIS BECKHAM MD May 28, 2018 10:37
== END 2018-05-28 11:15 | disposition home or self-care (01) | DRG 872 ==
LOC: EDUNIT# 12:42 → ER 12:45 → 4TH 15:18
PROVIDERS: ADMIT Family Medicine; ATTEND Family Medicine
DX: A41.9 Sepsis, unspecified organism (principal); N10 Acute pyelonephritis; B37.0 Candidal stomatitis; I10 Essential (primary) hypertension; J30.2 Other seasonal allergic rhinitis; M41.9 Scoliosis, unspecified; G47.00 Insomnia, unspecified; F41.9 Anxiety disorder, unspecified; F32.9 Major depressive disorder, single episode, unspecified; G56.01 Carpal tunnel syndrome, right upper limb; R11.0 Nausea; L27.0 Generalized skin eruption due to drugs and medicaments taken internally; T36.0X5A Adverse effect of penicillins, initial encounter
CPT/HCPCS: 36415; 80053; 81000; 83605; 84703; 85025; 85610; 86308; 86618; 86666; 86668; 86757; 87040; 87077; 87088; 87186; 87430; 96361; 96365; 96375; 99284

== ENCOUNTER → 2018-05-24 | Outpatient (CLI) | payer OTHER ==
[~2018-05-24] MED LIST changes: +ACET-2267 PO; +CETI10TA20 PO; +IBUP-30 PO
[2018-05-24 12:49] LABS: BASOPHILS % (AUTO) 0 % (0-10); EOSINOPHILS # (AUTO) 0.5 10^3/uL (0.0-0.3); EOSINOPHILS % (AUTO) 4 % (0-10); HEMATOCRIT 41 % (35-52); HEMOGLOBIN 14.3 G/DL (11.5-16.0); LYMPHOCYTES # (AUTO) 0.5 X 10^3 (1.0-4.0); LYMPHOCYTES % (AUTO) 4 % (12-44); MEAN CORPUSCULAR HEMOGLOBIN 29 PG (25-34); MEAN CORPUSCULAR HGB CONC 35 G/DL (32-36); MEAN CORPUSCULAR VOLUME 84 FL (80-99); MEAN PLATELET VOLUME 9.7 FL (7.4-10.4); MONOCYTES # (AUTO) 0.2 X 10^3 (0.0-1.0); MONOCYTES % (AUTO) 2 % (0-12); NEUTROPHILS # (AUTO) 10.9 X 10^3 (1.8-7.8); NEUTROPHILS % (AUTO) 91 % (42-75); PLATELET COUNT 253 10^3/uL (130-400); RED BLOOD COUNT 4.91 10^6/uL (4.35-5.85); RED CELL DISTRIBUTION WIDTH 13.6 % (10.0-14.5)
[2018-05-24 13:03] LABS: BUN/CREATININE RATIO 11; CALCIUM 9.1 MG/DL (8.5-10.1); CARBON DIOXIDE 24 MMOL/L (21-32); CHLORIDE 103 MMOL/L (98-107); CREATININE SERUM 0.74 MG/DL (0.60-1.30); GFR ESTIMATED > 60; GLUCOSE 139 MG/DL (70-105); POTASSIUM 3.2 MMOL/L (3.6-5.0); SODIUM 137 MMOL/L (135-145)
[2018-05-24 13:18] LABS: BAND NEUTROPHILS 17 %; BASOPHILS % (MANUAL) 1 %; EOSINOPHILS % (MANUAL) 2 %; LYMPHOCYTES % (MANUAL) 0 %; MONOCYTES % (MANUAL) 2 %; NEUTROPHILS % (MANUAL) 78 %
[2018-05-24 13:19] LABS: ROULEAUX SLIGHT
== END ==
LOC: LAB 12:26
PROVIDERS: ATTEND Nurse Practitioner Family
DX: M54.5 Low back pain (principal)
CPT/HCPCS: 36415; 80048; 85007; 85027

== ENCOUNTER → 2021-04-29 | Outpatient (CLI) | payer OTHER ==
[~2021-04-29] MED LIST changes: +ACET-2267 PO; -BENZ-13 PO; +BENZ100C18 PO; +CETI10TA49 PO; -D-ME118S7 PO; -DULO60CA58 PO; +DULO60CA59 PO; -IBUP-2055 PO; +IBUP-2473 PO; +IBUP-30 PO; -METO-395 PO; +MTP100TCR PO; +PROM118S5 PO
--- NOTE | 2021-04-29 09:00 | Diagnostic Imaging Report ---
INDICATION: Routine screening. No prior studies are available for comparison. This a baseline study. 2-D and 3-D bilateral screening mammography was performed with CAD. Scattered fibroglandular densities are identified bilaterally. No mass or malignant appearing microcalcifications are seen. Axillae are unremarkable. IMPRESSION: BI-RADS Category 1 No mammographic features suspicious for malignancy are identified. ACR BI-RADS Category 1: Negative. Result letter will be mailed to the patient. Note: At least 10% of breast cancer is not imaged by mammography. Dictated by: Dictated on workstation # [id number]
== END ==
LOC: RAD 07:30
PROVIDERS: ATTEND Physician Assistant
DX: Z12.31 Encounter for screening mammogram for malignant neoplasm of breast (principal)
CPT/HCPCS: 77063; 77067

== ENCOUNTER → 2023-08-15 | Outpatient (CLI) | payer OTHER ==
[~2023-08-15] VITALS: Ht 154.9 cm; Wt 120.9 kg
[~2023-08-15] MED LIST changes: -DOXY100C2 PO; +DOXY100C5 PO; +FLUT9.9S NS; +LISI1TAB46 PO; +SERT-413 PO
== END | disposition home or self-care (01) ==
LOC: PREOP 05:27
PROVIDERS: ATTEND Obstetrics & Gynecology
DX: Z01.818 Encounter for other preprocedural examination (principal)

== ENCOUNTER 2023-08-22 07:50 | Day surgery (SDC) | payer OTHER ==
[2023-08-22] VITALS (11 sets, daily range): BP systolic 94–150; BP diastolic 60–78
[~2023-08-22] VITALS: Ht 154.9 cm; Wt 120.9 kg
[2023-08-22] MEDS: LACTATED RINGERS 1,000 ML 1,000 ML IV PRN ×3 (08:40→12:20)
[2023-08-22] MEDS ORDERED: ceFAZolin INJECTION 2,000 MG in NS (IVPB) 50 ML 50 ML IV ONE (08:45)
[2023-08-22] MEDS ORDERED: MIDAZOLAM INJ 2 MG/2 ML VIAL IV ONE (09:00)
[2023-08-22] MEDS ORDERED: BUPIVACAINE 0.25% 30 ML VIAL ONE (09:47)
[2023-08-22] MEDS ORDERED: SEVOFLURANE (ULTANE) 15 ML INHAL SOLN ONE ×3 (09:52→12:30)
[2023-08-22] MEDS ORDERED: LIDOCAINE PF 2% 5 ML VIAL ONE (09:52)
[2023-08-22] MEDS ORDERED: proPOfol INJECTION 200 MG/20 ML VIAL IV ONE (09:52)
[2023-08-22] MEDS ORDERED: ONDANSETRON INJECTION 4 MG/2 ML (SDV) ONE (09:52)
[2023-08-22] MEDS ORDERED: MIDAZOLAM INJ 2 MG/2 ML VIAL ONE (09:52)
[2023-08-22] MEDS ORDERED: fentaNYL INJECTION 100 MCG/2 ML VIAL ONE ×3 (09:52→13:22)
[2023-08-22] MEDS ORDERED: BUPIVACAINE 0.25% 30 ML VIAL INJ ONE (10:54)
[2023-08-22] MEDS ORDERED: ROCURONIUM 50 MG/5 ML VIAL IV ONE ×4 (10:58→12:06)
[2023-08-22 12:02] LABS: BASOPHILS # (AUTO) 0.1 10^3/uL (0.0-0.1); BASOPHILS % (AUTO) 1 % (0-10); EOSINOPHILS # (AUTO) 0.2 10^3/uL (0.0-0.3); EOSINOPHILS % (AUTO) 2 % (0-10); HEMATOCRIT 43 % (35-52); HEMOGLOBIN 13.6 g/dL (11.5-16.0); LYMPHOCYTES % (AUTO) 24 % (12-44); MEAN CORPUSCULAR HEMOGLOBIN 28 pg (25-34); MEAN CORPUSCULAR HGB CONC 32 g/dL (32-36); MEAN CORPUSCULAR VOLUME 87 fL (80-99); MONOCYTES # (AUTO) 0.5 10^3/uL (0.0-1.0); MONOCYTES % (AUTO) 6 % (0-12); NEUTROPHILS # (AUTO) 5.7 10^3/uL (1.8-7.8); NEUTROPHILS % (AUTO) 67 % (42-75); PLATELET COUNT 360 10^3/uL (130-400); WHITE BLOOD COUNT 8.5 10^3/uL (4.3-11.0)
[2023-08-22] MEDS ORDERED: GLYCOPYRROLATE INJ 0.2 MG/ML 2 ML VIAL ONE (12:56)
[2023-08-22] MEDS ORDERED: NEOSTIGMINE 1 MG/1ML 10 ML VIAL ONE (12:56)
--- NOTE | 2023-08-22 13:11 | Anesthesia-General Post-Op ---
General Patient Condition Mental Status/LOC: Same as Preop Cardiovascular: Satisfactory Nausea/Vomiting: Absent Respiratory: Satisfactory Pain: Controlled Complications: Absent Post Op Complications Complications None Follow Up Care/Instructions Patient Instructions None needed. Anesthesia/Patient Condition Patient Condition Patient is doing well, no complaints, stable vital signs, no apparent adverse anesthesia problems. No complications reported per nursing. TYRONE HAMMER CRNA Aug 22, 2023 13:11
[2023-08-22] MEDS ORDERED: NALOXONE 0.4 MG/ML 1 ML VIAL IV PRN (13:15)
[2023-08-22] MEDS ORDERED: METOCLOPRAMIDE INJ 10 MG/2 ML IV PRN (13:15)
[2023-08-22] MEDS ORDERED: ONDANSETRON INJECTION 4 MG/2 ML (SDV) IVP PRN (13:15)
[2023-08-22] MEDS ORDERED: oxyCODONE IMMEDIATE RELEASE 5 MG TABLET PO PRN (13:15)
[2023-08-22] MEDS ORDERED: BENZOCAINE/MENTHOL (DERMOPLAST) 56 ML CAN TP PRN (13:15)
[2023-08-22] MEDS ORDERED: fentaNYL INJECTION 100 MCG/2 ML VIAL IVP ONE (13:15)
[2023-08-22] MEDS ORDERED: MEPERIDINE INJ 50 MG/ML VIAL IVP ONE (13:15)
[2023-08-22] MEDS ORDERED: KETOROLAC INJ 30 MG/ML VIAL ONE (13:16)
--- NOTE | 2023-08-22 13:16 | OB/GYN Operative Report ---
Operative Report Date of Procedure:Aug 22, 2023 Preoperative Diagnosis: Abnormal uterine bleeding uterine fibroids Postoperative Diagnosis: Same Name of the Procedure: Robotic assisted total laparoscopic hysterectomy with bilateral salpingectomy and cystoscopy Surgeon: Cathy Montoya Rocket Motor Tester(s): [none] Anesthesia: Kandy Sommers RN Indications for Procedure: Patient is a 43-year-old female who has had a long standing history of abnormal uterine bleeding and on ultrasound was noted that she had multiple fibroids. Patient no longer desired fertility and wanted to proceed to hysterectomy. Patient had underwent several modalities of treatment without success. We discussed the risk benefits and alternatives, signed consents and is ready to proceed. Findings of the Procedure: Uterine enlargement uterine fibroids Complications: None Disposition: Counts correct x2 patient taken to recovery room in stable condition Description of the Procedure: Informed consent was obtained signed and patient was taken to OR Vimal. 2 placed under general endotracheal anesthesia placed in the dorsolithotomy position prepped and draped in usual sterile fashion. A timeout was performed. A pelvic exam under anesthesia revealed a normal-sized uterus no adnexal masses. A Webb catheter was placed into the urinary bladder. A weighted speculum was placed into the posterior vaginal vault and single-tooth tenaculum was used to grasp the end of the cervix. Uterus sounded to 8 cm. A 2-0 [address] was used to place a stitch at 3:00 on the cervix. A Cheryl uterine manipulator was then inserted into the uterine cavity. The 2-0 Vicryl was then weaved through the Cheryl manipulator to hold onto it. The weighted speculum and single- tooth were removed. The balloon was inflated inside the uterine cavity of the Cheryl manipulator. Attention was then paid to the abdomen where we marked about 3 cm above the umbilicus and then marked 8 cm from that to the right and to the left and the line. We then placed another richard inferior to the right lined richard. These areas were then injected with quarter percent plain Marcaine. A small incision was made in the supraumbilical area and using direct visualization with a da Joselin trocar 8 mm and a 5 mm scope entered into the abdominal cavity without any difficulty. The abdomen was insufflated using carbon oxide gas. Once the abdomen was insufflated my lateral ports were then placed after placing incisions in those areas using the da Joselin 8 mm trocars in the right and left ly. The costumer assistant trocar was then placed in the inferior richard after placing an incision there. Once the trocars were placed the da Joselin robot was then guided forward to the marking area. The da Joselin endoscope was then placed into robot arm #3 and the uterus was marked as the targeted area. Once this was done the robotic arms were then attached to the da Joselin trocars and the arms were placed to point towards the uterus. The da Joselin vessel sealer was placed in the left arm (arm #2) and the da Joselin scissors were placed into arm #4. Once these were placed and locked into their positions, I then disgowned and approached the da Joselin console. I placed my hands into the da Joselin instrument manipulator's and then placed my head into the visor. We then inspected the a jorge and noted that both ovaries were normal fallopian tubes were identified and normal the uterus was normal size there was a small fibroid on the anterior side of the uterus that was small about 1 cm. Both ureters were seen peristalsing in the pelvic sidewall and were away from where we would be working. Using the vessel sealer and the da Joselin scissors we started with the fallopian tube on the right side the mesosalpinx was cauterized and incised along to the proximal end and then it was incised off and removed from the abdominal cavity by my costumer assistant. I then proceeded to the ovarian ligament which was then cauterized and incised using the vessel sealer the round ligament was cauterized and incised using the vessel sealer then the anterior posterior leaves of the broad ligament were the posterior leaf of the broad ligament was cauterized and incised using the da Joselin scissors and then the anterior leaf of the broad ligament was cauterized and incised using the da Joselin scissors across the ves icouterine fascia to help create the bladder flap. I then used the vessel sealer along the side of the uterus to cauterize and incise down to the uterine artery which was cauterized and incised. Once this was done I then proceeded to the patient's left side and in similar fashion cauterized and incised the mesosalpinx of the left fallopian tube down across the ovarian ligament and then across the round ligament the anterior posterior leaves of the broad ligament and using my da Joselin scissors cauterized and incised the posterior and anterior leaves of the broad ligament continuing onward from the anterior leaf to connect from the right side to create the bladder flap the bladder flap was then reflected off. Then I went to the sidewall of the left side of the uterus cauterized and incised the vessel sealer down to the uterine artery cauterized and incised the uterine artery. Once this was done the vaginal occluder balloon was insufflated using normal saline. I then cauterized and made my incision into the vaginal cuff and created by vaginal cuff using my da Joselin scissors. I used the vessel sealer to cauterize along the right and left sided catalan of the uterus to maintain excellent hemostasis. Once I was able to connect and completely incised my vaginal cuff uterus and cervix were removed from the pelvic cavity. The area was inspected there was noted to be a small bleeder along the vaginal cuff which was hemostatic using bipolar. The da Joselin scissors and vessel sealer were then removed and bipolar was placed into my left arm (#2) and a fine needle heavy truck driver was placed into my right arm (#4). Using a V locking suture I then reapproximated my vaginal cuff in a running fashion and imbricated using the V locking suture over the top of it. The suture was cut. The area was inspected and was noted to be hemostatic. The needle was then removed under direct visualization. The instruments were then removed under direct visualization. I then scrubbed back in the robotic arms were undocked and using the endoscope we visualized the cuff and placed Floseal over the cuff. We then visualized the removal of all of our trocars and noted that our incision sites were hemostatic. As much of the carbon oxide gas was allowed to escape as possible. The incisions were then reapproximated using 3-0 Monocryl and then sealed with Dermabond. Then attention was paid to the perineum where the Webb catheter was removed and the cystoscope was introduced into the bladder the bladder was noted to be intact and both ureters were seen with urine egressing from them. The cystoscope was removed and the Webb catheter was placed back inside the urinary bladder. The patient tolerated the procedure well was taken to recovery room in stable condition. All of my counts were correct x2 EBL [id number], fluid was 2000 cc, irrigation was 100 and urine output was 450 cc. CATHY MONTOYA DO Aug 22, 2023 13:16
[2023-08-22] MEDS: KETOROLAC INJ 30 MG/ML VIAL IV SCH ×2 (13:20→19:06)
[2023-08-22] MEDS ORDERED: PROMETHAZINE INJ 25 MG/ML VIAL ONE (13:58)
[2023-08-22] MEDS ORDERED: PROMETHAZINE INJ 25 MG/ML VIAL IVP ONE (14:00)
[2023-08-22] MEDS: D5 LR 1,000 ML IV SOLN 1,000 ML IV SCH ×2 (17:02→23:29)
[2023-08-22] MEDS: ACETAMINOPHEN 500 MG TABLET PO SCH ×2 (17:16→23:16)
[2023-08-23] VITALS: BP 118/58
[2023-08-23] MEDS: KETOROLAC INJ 30 MG/ML VIAL IV SCH ×2 (03:22→09:15)
[2023-08-23 04:00] VITALS: BP 121/61
[2023-08-23] MEDS: D5 LR 1,000 ML IV SOLN 1,000 ML IV SCH (05:36)
[2023-08-23] MEDS: ACETAMINOPHEN 500 MG TABLET PO SCH (05:43)
[2023-08-23 06:15] LABS: BASOPHILS # (AUTO) 0.1 10^3/uL (0.0-0.1); BASOPHILS % (AUTO) 1 % (0-10); EOSINOPHILS % (AUTO) 0 % (0-10); HEMATOCRIT 36 % (35-52); HEMOGLOBIN 11.6 g/dL (11.5-16.0); LYMPHOCYTES # (AUTO) 1.8 10^3/uL (1.0-4.0); LYMPHOCYTES % (AUTO) 16 % (12-44); MEAN CORPUSCULAR HEMOGLOBIN 28 pg (25-34); MEAN CORPUSCULAR HGB CONC 32 g/dL (32-36); MEAN CORPUSCULAR VOLUME 86 fL (80-99); MEAN PLATELET VOLUME 9.2 fL (9.0-12.2); MONOCYTES # (AUTO) 0.8 10^3/uL (0.0-1.0); MONOCYTES % (AUTO) 7 % (0-12); NEUTROPHILS # (AUTO) 8.3 10^3/uL (1.8-7.8); NEUTROPHILS % (AUTO) 76 % (42-75); PLATELET COUNT 289 10^3/uL (130-400); WHITE BLOOD COUNT 10.9 10^3/uL (4.3-11.0)
[2023-08-23] MEDS ORDERED: DOCU100C37 PO (06:57)
[2023-08-23] MEDS ORDERED: OXC5T PO ×2 (06:57→10:22)
--- NOTE | 2023-08-23 06:59 | Discharge Summary ---
Discharge Summary Hospital Course Problems Reviewed?: Yes Hospital Course Date of Admission: Admission Diagnosis : Family Physician/Provider: Alexandro Leong Date of Discharge: 08/23/23 Discharge Diagnosis: s/p MODE BS with cystoscopy Hospital Course: [ ] Labs and Pending Lab Test: Laboratory Tests 08/22/23 08:10: White Blood Count 8.5, Red Blood Count 4.94, Hemoglobin 13.6, Hematocrit 43, Mean Corpuscular Volume 87, Mean Corpuscular Hemoglobin 28, Mean Corpuscular Hemoglobin Concent 32, Red Cell Distribution Width 13.6, Platelet Count 360, Mean Platelet Volume 10.0, Immature Granulocyte % (Auto) 0, Neutrophils (%) (Auto) 67, Lymphocytes (%) (Auto) 24, Monocytes (%) (Auto) 6, Eosinophils (%) (Auto) 2, Basophils (%) (Auto) 1, Neutrophils # (Auto) 5.7, Lymphocytes # (Auto) 2.0, Monocytes # (Auto) 0.5, Eosinophils # (Auto) 0.2, Basophils # (Auto) 0.1, Immature Granulocyte # (Auto) 0.0 08/23/23 05:59: White Blood Count 10.9, Red Blood Count 4.20, Hemoglobin 11.6, Hematocrit 36, Mean Corpuscular Volume 86, Mean Corpuscular Hemoglobin 28, Mean Corpuscular Hemoglobin Concent 32, Red Cell Distribution Width 13.5, Platelet Count 289, Mean Platelet Volume 9.2, Immature Granulocyte % (Auto) 0, Neutrophils (%) (Auto) 76H, Lymphocytes (%) (Auto) 16, Monocytes (%) (Auto) 7, Eosinophils (%) (Auto) 0, Basophils (%) (Auto) 1, Neutrophils # (Auto) 8.3H, Lymphocytes # (Auto) 1.8, Monocytes # (Auto) 0.8, Eosinophils # (Auto) 0.0, Basophils # (Auto) 0.1, Immature Granulocyte # (Auto) 0.0 Home Meds Active Reported Sertraline HCl 50 Mg Tablet 50 Mg PO Lisinopril-Hctz 20-12.5 mg Tab (Lisinopril/Hydrochlorothiazide) 20 Mg-12.5 Mg Tablet 1 Each PO DAILY Flonase Allergy Relief (Fluticasone Propionate) 50 Mcg/Actuation Lima.susp 1 Lima NS DAILY 1 SPRAY EACH NARE DAILY Zyrtec (Cetirizine HCl) 10 Mg Tablet 10 Mg PO DAILY PRN Activity: Activity as Tolerated Driving Instructions: No Driving for 1 Week NO SMOKING: NO SMOKING Nothing Inside Vagina: No Douching, No Buda, No Tampons Discharge Diet: Regular Diet Symptoms to Report to : Pain Increased, Constipation(Persistant), Fever Over 101 Degrees F, Pain/Pressure in Chest, Vaginal Bleeding Increase, Vaginal Discharge Foul, Nausea/Vomiting For Any Problems or Questions: Contact Your Physician Infection Signs and Symptoms: Increased Redness, Foul Odor of Wound, Increased Drainage, Skin Itchy or Has a Rash, Increased Swelling, Temperature Above 101 F Operative Area Clean and Dry: Keep Incision Clean/Dry Stitches/Sathya/Dermabond: Dermabond Discharge Physical Examination Allergies: Coded Allergies: codeine (Unverified Allergy, Mild, 05/29/11) vomitting Vitals & I&Os Vital Signs Date Time Temp Pulse Resp B/P (MAP) Pulse Ox O2 Delivery O2 Flow Rate FiO2 08/23/23 04:00 36.5 93 16 121/61 (81) 93 Room Air 08/22/23 15:14 4.00 Discharge Summary Date of Admission Date of Discharge Discharge Date: Aug 23, 2023 Discharge Time: 07:00 Supervisory-Addendum Brief Verification & Attestation Participated in pt care: history, MDM, physical Personally performed: exam, history, MDM, supervision of care Care discussed with: other Procedures: n/a Results interpretation: Verified all documentation I saw and examined this patient personally KATARZYNA TAPIA DO Aug 23, 2023 06:59
[2023-08-23] MEDS ORDERED: FLU QUADRIvalent (6 months+) 60 mcg/0.5 ml 2023-2024 (FLUARIX) IM ONE (07:00)
[2023-08-23 08:00] VITALS: BP 139/63
--- NOTE | 2023-08-23 08:28 | Progress Note ---
Standard Progress Note Progress Notes/Assess & Plan Date Seen by a Provider: Aug 23, 2023 Time Seen by a Provider: 07:00 Progress/Assessment & Plan Patient is postop day #1 status post RATLH with BS. She is doing well and has no concerns. She is ambulating and able to urinate on her own and tolerate a diet. This morning she was sitting in a chair. Her pain is well controlled. She would like to go home today. Vital signs- stable afebrile Heart- regular rate and rhythm Lungs- clear to auscultation bilaterally Abdomen- soft nontender nondistended incision sites clean dry intact Minimal vaginal bleeding Extremitiesintact x4 no cyanosis clubbing erythema or edema. A/P Status post RATLH BS DC to home Follow-up in 1 week Discharge instructions discussed with patient KATARZYNA TAPIA DO Aug 23, 2023 08:28
[2023-08-23] MEDS ORDERED: ENOXAPARIN 40 MG/0.4 ML SYRINGE SC SCH (09:00)
[2023-08-23] MEDS ORDERED: DOCUSATE SODIUM 100 MG CAPSULE PO SCH (09:00)
[2023-08-23] MEDS ORDERED: IBUP-1780 PO (10:22)
[2023-08-23] MEDS ORDERED: IBUPROFEN 800 MG TABLET PO SCH (13:15)
[2023-08-24] MEDS ORDERED: ENOXAPARIN 40 MG/0.4 ML SYRINGE SC SCH (09:00)
== END 2023-08-23 11:20 | disposition home or self-care (01) ==
LOC: SDC 07:50 → WS 14:50 → SDC 08-23 11:20
PROVIDERS: ATTEND Obstetrics & Gynecology
DX: N93.9 Abnormal uterine and vaginal bleeding, unspecified (principal); D25.9 Leiomyoma of uterus, unspecified; E66.01 Morbid (severe) obesity due to excess calories; N92.0 Excessive and frequent menstruation with regular cycle; N94.6 Dysmenorrhea, unspecified; Z68.43 Body mass index [BMI] 50.0-59.9, adult
CPT/HCPCS: 36415; 84703; 85025; 86850; 86900; 86901; 87081; 94664